=== PATIENT | male | born 1945 | race Caucasian/White ===

== ENCOUNTER 2024-12-24 13:01 | Outpatient (AMB) | payer MEDICARE, OTHER, SELFPAY ==
--- OUTSIDE RECORDS SUMMARY | 2024-01-15 12:30 | XMS_ITS ---
Author Name [facility] Organization [facility] [place] Address [address] [place] [id number] Care Team Providers Care Contract Officer Name Role Phone MARTIN RODGERS Primary Care Provider Unavailabl e Insurance Providers: All historical and current Section Date Range: From patient's date of to the date document was created. This section includes the names of all active insurance providers for the patient. Insurance Provider Type of Coverage Plan Name Start of Policy Coverage End of Policy Coverage Group Number Member ID Insurance Provider's Telephone Number Policy Johnson's Name Patient's Relationship to Policy Johnson MEDICARE (WNR) MEDICARE (M) PART B Oct 22, 2016 PART B [id number] [facility] PATIENT Selected Encounter This section includes the information on record at [place] for the Encounter. Date/Time Encounter Type Encounter Description Reason Provider Source Jan 15, 2024 04:30 PM HEARING AID REPAIR/MODIFYIN G AUDIOLOGY ICD-10-CM Z46.1 Encounter for fitting and adjustment of hearing aid BLADIMIR DANIELS [facility] Encounter Template Text not used by [place] Assessments - Encounter Diagnoses This section includes the primary and secondary diagnoses documented for the Encounter. Date/Time Primary/Secondary Diagnosis Diagnosis Name Provider Source Jan 15, 2024 05:14 PM PRIMARY Encounter for fitting and adjustment of hearing aid [facility] Jan 15, 2024 05:14 PM SECONDARY Sensorineural hearing loss, bilateral [facility] [place] [facility] Plan of Treatment: Future Appointments (+ 6 months) and Future Tests (+/- 45 days) The Plan of Treatment section includes future care activities for the patient from all [place] treatmentfacilities. This section includes future appointments and future orders which are active, pending or scheduled. Future Appointments This section includes appointments that were scheduled to occur 6 months from the date of the Encounter, up to a maximum of 20 appointments. The data comes from all [place] treatment facilities. Appointment Date/Time Appointment Type Appointme nt Facility Name Feb 26, 2024 04:30 PM [facility] [place] [facility] Mar 19, 2024 04:00 PM [facility] Mar 25, 2024 04:00 PM [facility] Apr 10, 2024 02:30 PM [facility] Apr 30, 2024 11:00 AM [facility] May 21, 2024 11:00 AM [facility] May 22, 2024 04:00 PM AMBUL[facility] [place] [facility] Jun 17, 2024 11:00 AM [facility]UL[facility] [place] [facility] Encounter Notes: All associated encounter notes This section contains the clinical notes associated to the Encounter. Date/Time Encounter Note(s) Provider Source Jan 15, 2024 08:00 AM AUDIOLOGY E & M NO TE: LOCAL TITLE: AUDIOLOGY CLINIC STANDARD TITLE: AUDIOLOGY E & M NOTE DATE OF NOTE: JAN 15, 2024@08:00 ENTRY DATE: JAN 15, 2024@08:00:49 AUTHOR: BLADIMIR DANIELS COSIGNER: URGENCY: STATUS: COMPLETED Dx CODE: Z46.1-Encounter for Fitting/Adjusting Hearing Aid(s); H90.3- Sensorineural Hearing Loss, Bilateral APPOINTMENT TYPE: Hearing Aid Check HISTORY/BACKGROUND: was seen for a hearing aid follow-up appointment, unaccompanied. He was fit on 11/24/23 with OTICON INTENT 1 MINIRITE-Rs. He scheduled today's appointment because he does not like the way the hearing aids fit in his ears. At this last visit, the receivers were changed from size 3 85 gain to size 4 85 gain. [place] feels they are too long and sticking out of his ears now, and visual inspection confirms this. Size 4 85 gain receivers were replaced for size 2 85 gain receivers. Remained with 10mm openbass domes. reported improved fit and comfort. He will try these receivers and return if further adjustments are needed. PLAN/RECOMMENDATION(S): 1. Follow up as needed. Patient Education Education provided on the following topics: Hearing aids Education provided to: P Response to Education: VU Brown Patient P Family F Significant Other SO Verbalizes Understanding VU Returns Demonstration RD Performs Independently PI Lacks Comprehension LC Refused Education RE Not Applicable NA /lora/ LORRAINE DE LA GARZA, CCC-A STAFF PLASTIC H[facility] PRODUCTS ASSEMBLER Signed: 01/16/2024 12:51 BLADIMIR DANIELS [place] [facility]
--- OUTSIDE RECORDS SUMMARY | 2024-02-26 12:30 | XMS_ITS | Encounter Summary ---
Author Name [facility] Organization [facility] [place] Address [address] [place] [id number] Care Team Providers Care Lockstitch Cup Setter Name Role Phone MARTIN RODGERS Primary Care [...] PART B Oct 22, 2016 PART B [id number] [facility] PATIENT Selected Encounter This section includes the information on record at [place] for the Encounter. Date/Time Encounter Type Encounter Description Reason Provider Source Feb 26, 2024 04:30 PM HEARING AID EXAM BOTH EARS AUDIOLOGY ICD-10-CM Z46.1 Encounter for fitting and adjustment of hearing aid BLADIMIR DANIELS [facility] Encounter Template Text not used by [place] Assessments - Encounter Diagnoses This section includes the primary and secondary diagnoses documented for the Encounter. Date/Time Primary/Secondary Diagnosis Diagnosis Name Provider Source Feb 26, 2024 05:35 PM PRIMARY Encounter for fitting and adjustment of hearing aid BLADIMIR DANIELS [facility] Feb 26, 2024 05:35 PM SECONDARY Sensorineural hearing loss, bilateral BLADIMIR DANIELS [facility] Plan of Treatment: Future Appointments (+ 6 months) and Future Tests (+/- 45 days) The Plan of Treatment section includes future care activities for the patient from all [place] treatmentfacilities. This section includes future appointments and future orders which are active, pending or scheduled. Future Appointments This section includes appointments that were scheduled to occur 6 months from the date of the Encounter, up to a maximum of 20 appointments. The data comes from all [place] treatment facilities. Appointment Date/Time Appointment Type Appointme nt Facility Name Mar 19, 2024 04:00 PM [facility]BUL[facility] [place] [facility] Mar 25, 2024 04:00 PM AMBULATORY - [facility] [place] [facility] Apr 10, 2024 02:30 PM AMBULAT[facility] [place] [facility] Apr 30, 2024 11:00 AM AMBULATORY - [facility] [place] [facility] May 21, 2024 11:00 AM AMBULATORY [facility] [place] [facility] May 22, 2024 04:00 PM AMBULATORY [facility] [place] [facility] Jun 17, 2024 11:00 AM AMBULATORY - [facility] [place] [facility] Aug 02, 2024 01:30 PM AMBULATORY - [facility] [place] [facility] Encounter Notes: All associated encounter notes This section contains the clinical notes associated to the Encounter. Date/Time Encounter Note(s) Provider Source Feb 26, 2024 08:50 AM AUDIOLOGY E & M NO TE: [facility] TITLE: AUDIOLOGY CLINIC STANDARD TITLE: AUDIOLOGY E & M NOTE DATE OF NOTE: FEB 26, 2024@08:50 ENTRY DATE: FEB 26, 2024@08:50:03 AUTHOR: BLADIMIR DANIELS COSIGNER: URGENCY: STATUS: COMPLETED AUDIOLOGY CLINIC Has ADDENDA Dx CODE: Z46.1-Encounter for Fitting/Adjusting Hearing Aid(s); H90.3- Sensorineural Hearing Loss, Bilateral APPOINTMENT TYPE: Hearing Aid Check HISTORY/BACKGROUND: Model was seen for a hearing aid follow-up appointment, accompanied by his and dog. He was fit on 11/24/23 with OTICON INTENT 1 MINIRITE-Rs. He scheduled today's appointment because he continues to have retention problems with the new hearing aids. He feels that they sit up too high on his ear, making them catch on things and pull out of his ear. He also feels that the receivers don't fit correctly in his ears. Changed from size 2 85 gain to size 3 85 gain receivers today. He initially was in size 3, and has since tried size 4 and size 2. Remained with 10mm openbass domes. Yes[place] reported improved fit and comfort. Yesenia was given several other options going forward. He was advised that we could go back a product line and order Oticon Real devices, as that are more similar to the Oticon More aids that he's been happy with, however he does not want to go backwards. Custom molds were offered, but Yesenia states that he has tried these in the past and was unhappy with them. Yesenia decided that he would like to try a different hearing aid hog driver. The current Oticon Intents are within trial period until 04/29/24 and will be returned for credit at his next visit. Yesenia states that he would like to try Phonak devices. He would like to remain with rechargeable aids. A pair of PHONAK AUDEO I90-R RICs were selected and ordered in [place] with size 1 S receivers and domes. PLAN/RECOMMENDATION(S): 1. RTC on 03/19/24 at 4:00PM in clinic E for a 60 min hearing aid fitting. Patient Education Education provided on the following topics: Hearing aids Education provided to: P Response to Education: VU Brown Patient P Family F Significant Other SO Verbalizes Understanding VU Returns Demonstration RD Performs Independently PI Lacks Comprehension LC Refused Education RE Not Applicable NA /LORRAINE Castillo, [facility])-A STAFF EDGE PLUGGER Signed: 02/26/2024 17:35 Receipt Acknowledged By: 02/27/2024 07:15 /lora/ ABEL PERKINS SUPERVISORY RETAIL OPERATIONS SPECIALIST 03/06/2024 ADDENDUM STATUS: COMPLETED Hearing aids received and certified, upcoming appointment scheduled on 03/19/2024. /lora/ PHILIP ARREDONDO Audiology Health Supervisor Plastering Signed: 03/06/2024 08:13 BLADIMIR DANIELS [facility]
--- OUTSIDE RECORDS SUMMARY | 2024-05-21 07:00 | XMS_ITS ---
Author Name [facility] [place] Organization [facility] [place] Address [address] [place] [address] Care Team Providers Care Financial Services Manager Name Role Phone MARTIN RODGERS Primary Care [...] PART B Oct 22, 2016 PART B [id number] [facility] EFREN SON PATIENT Selected Encounter This section includes the information on record at [place] for the Encounter. Date/Time Encounter Type Encounter Description Reason Provider Source May 21, 2024 11:00 AM HEARING AID XM&SLCTN [place] AUDIOLOGY ICD-10-CM Z46.1 Encounter for fitting and adjustment of hearing aid ELAINE RONDON [facility] Encounter Template Text not used by [place] Assessments - Encounter Diagnoses This section includes the primary and secondary diagnoses documented for the Encounter. Date/Time Primary/Secondary Diagnosis Diagnosis Name Provider Source May 21, 2024 01:02 PM PRIMARY Encounter for fitting and adjustment of hearing aid JASON RONDON [place] [facility] [place] [facility] May 21, 2024 01:02 PM SECONDARY Sensorineural hearing loss, bilateral JASON RONDON [place] [facility] [place] [facility] Plan of Treatment: Future Appointments (+ 6 months) and Future Tests (+/- 45 days) The Plan of Treatment section includes future care activities for the patient from all [place] treatmentfacilities. This section includes future appointments and future orders which are active, pending or scheduled. Future Appointments This section includes appointments that were scheduled to occur 6 months from the date of the Encounter, up to a maximum of 20 appointments. The data comes from all [place] treatment facilities. Appointment Date/Time Appointment Type Appointme nt Facility Name May 22, 2024 04:00 PM AMBULATORY - [facility] [place] [facility] Jun 17, 2024 11:00 AM AMBULATORY - [facility]ICIN [facility] [place] [facility] Aug 02, 2024 01:30 PM AMBULATORY - RE[facility] MEDICIN [facility] [place] [facility] September 13, 2024 02:30 PM AMBULATORY - RE[facility] MEDICIN [facility] [place] [facility] Oct 24, 2024 10:30 AM AMBULATORY - MEDICINE [facility] Encounter Notes: All associated encounter notes This section contains the clinical notes associated to the Encounter. Date/Time Encounter Note(s) Provider Source May 21, 2024 12:57 PM AUDIOLOGY E & M NO TE: [facility] TITLE: AUDIOLOGY CLINIC STANDARD TITLE: AUDIOLOGY E & M NOTE DATE OF NOTE: MAY 21, 2024@12:57 ENTRY DATE: MAY 21, 2024@12:57:08 AUTHOR: ELAINE RONDON COSIGNER: URGENCY: STATUS: COMPLETED Dx: Sensorineural hearing loss, bilateral Yesenia was seen today for a hearing aid follow-up appointment. He was accompanied by his and his dog, Joanne given his verbal consent. reports the Phonak aids are fitting better, but he does not like the Phonak Jolene and states he is not hearing speech well with the aids. He reports his hearing aids often disconnect from the Jolene and he needs to reconnect to it often. also reports his aids sound tinny . agreed to switch back to Oticon RICs as he states he liked that Jolene better and he found the aids to be more natural sounding. The Phonak aids were re-programmed today with an update to acoustic parameters (updated to domlora). Mid-frequency and overall gain were increased and feedback loading manager was re-run. Oticon Intent 1 mini ANDREY-R hearing aids will be ordered again. He will use the Phonak aids for now and will return them at his fitting appointment. [place] is scheduled for a hearing aid fitting appointment on 06/17/24 at 11am. RTC placed. [place] states he had Covid-19 after his last hearing evaluation and feels his hearing has changed. He is scheduled for hearing re-evaluation tomorrow, 05/22/24 at 4pm with this provider. RTC placed. /lora/ Ahmet Soriano, [facility]-A Nurse Research Signed: 05/21/2024 13:03 Receipt Acknowledged By: 05/21/2024 13:16 /lora/ OG PATIÑO ADVANCED LAUNDRY HELPER [facility]LAINE RONDON [facility]
--- OUTSIDE RECORDS SUMMARY | 2024-05-22 12:00 | XMS_ITS ---
Author Name [facility] [place] Organization [place] Address [address] [place] [id number] Care Team Providers Care Escrow Agent Name Role Phone ANA MARIA MARTIN Primary Care Provider Unavailabl e Insurance Providers: [...] PART B Oct 22, 2016 PART B [id number] [facility] HUYEFREN PATIENT Selected Encounter This section includes the information on record at [place] for the Encounter. Date/Time Encounter Type Encounter Description Reason Provider Source May 22, 2024 04:00 PM TYMPANOMETRY AUDIOLOGY ICD-10-CM H90.3 Sensorineural hearing loss, bilateral BONREBECCAEKJASON N L E Encounter Template Text not used by [place] Assessments - Encounter Diagnoses This section includes the primary and secondary diagnoses documented for the Encounter. Date/Time Primary/Secondary Diagnosis Diagnosis Name Provider Source May 22, 2024 04:25 PM PRIMARY Sensorineural hearing loss, bilateral AYSEEKHANDYE N L [place] [facility] [place] [facility] May 22, 2024 04:25 PM SECONDARY Tinnitus, bilateral BONREBECCAEKHANDYE N L [place] [facility] [place] [facility] Plan of Treatment: Future Appointments (+ 6 months) and Future Tests (+/- 45 days) The Plan of Treatment section includes future care activities for the patient from all [place] treatmentfacilities. This section includes future appointments and future orders which are active, pending or scheduled. Future Appointments This section includes appointments that were scheduled to occur 6 months from the date of the Encounter, up to a maximum of 20 appointments. The data comes from all [place] treatment facilities. Appointment Date/Time Appointment Type Appointme nt Facility Name Jun 17, 2024 11:00 AM [facility] [place] [facility] Aug 02, 2024 01:30 PM [facility]BUL[facility] [place] [facility] September 13, 2024 02:30 PM AMBULATORY - REHAB MEDICIN [facility] [place] [facility] Oct 24, 2024 10:30 AM AMBULATORY - MEDICINE [facility] Encounter Notes: All associated encounter notes This section contains the clinical notes associated to the Encounter. Date/Time Encounter Note(s) Provider Source May 22, 2024 04:05 PM AUDIOLOGY E & M NO TE: LOCAL TITLE: AUDIOLOGY CLINIC STANDARD TITLE: AUDIOLOGY E & M NOTE DATE OF NOTE: MAY 22, 2024@16:05 ENTRY DATE: MAY 22, 2024@16:05:46 AUTHOR: ELAINE RONDON COSIGNER: URGENCY: STATUS: COMPLETED AUDIOLOGY CLINIC Has ADDENDA Yesenia was seen May 22, 2024 for a hearing re-evaluation. His last hearing evaluation was on 11/01/23. reports feeling like his hearing has declined since he had Covid-19 in January. He has a history of longstanding, bilateral tinnitus. is currently wearing bilateral Phonak rechargeable RICs but will be switching to rechargeable Oticon RICs next month. Medical history includes: Active problems - Computerized Problem List is the source for the followin. Chronic kidney disease stage 3 2. NonVA Providers 3. Crohns disease 4. History of mitral valve repair 5. Sleep apnea 6. Coronary artery disease 7. Hypertension 8. Hyperlipidemia 9. Neuropathy 10. Restless legs 11. GERD - Gastro-esophageal reflux disease 12. Erectile dysfunction 13. Benign prostatic hypertrophy Results of today's testing are as follow: Otoscopy was WNL bilaterally. Pure tone audiometric testing under headphones revealed a normal sloping to severe, sensorineural hearing loss bilaterally. Word recognition scores were good for each ear (92% right, 84% left) with recorded speech presented at 75 dB HL (contralateral masking). Normal tympanograms obtained bilaterally. Hearing is stable compared to his last evaluation in 2023. [place] was counseled re: today's test results. is scheduled for a hearing aid fitting appointment on 06/17/24 at 11am. /lora/ Ahmet Soriano, [facility]-A Road Inspector Signed: 05/22/2024 17:01 05/23/2024 ADDENDUM STATUS: COMPLETED Hearing aids received and certified, upcoming appointment scheduled on 06/17/2024. /lora/ PHILIP ARREDONDO Audiology Health French Tutor Signed: 05/23/2024 08:18 ELAINE RONDON [place] [facility]
--- OUTSIDE RECORDS SUMMARY | 2024-06-17 07:00 | XMS_ITS | Encounter Summary ---
Author Name [facility] [place] Organization [place] Address [address] [place] [address] Care Team Providers Care Outside Event Sales Specialist Name Role Phone ANA MARIA MARTIN Primary [...] PART B Oct 22, 2016 PART B [id number] [facility] EFREN SON PATIENT Selected Encounter This section includes the information on record at [place] for the Encounter. Date/Time Encounter Type Encounter Description Reason Provider Source Jun 17, 2024 11:00 AM HEARING SERVICE AUDIOLOGY ICD-10-CM Z46.1 Encounter for fitting and adjustment of hearing aid BLADIMIR DANIELS [facility] Encounter Template Text not used by [place] Assessments - Encounter Diagnoses This section includes the primary and secondary diagnoses documented for the Encounter. Date/Time Primary/Secondary Diagnosis Diagnosis Name Provider Source Jun 17, 2024 11:45 AM PRIMARY Encounter for fitting and adjustment of hearing aid BLADIMIR DANIELS [facility] Jun 17, 2024 11:45 AM SECONDARY Sensorineural hearing loss, bilateral BLADIMIR DANIELS [facility] Plan of Treatment: Future Appointments (+ 6 months) and Future Tests (+/- 45 days) The Plan of Treatment section includes future care activities for the patient from all [place] treatmentfacilities. This section includes future appointments and future orders which are active, pending or scheduled. Future Appointments This section includes appointments that were scheduled to occur 6 months from the date of the Encounter, up to a maximum of 20 appointments. The data comes from all [place] treatment facilities. Appointment Date/Time Appointment Type Appointme nt Facility Name Aug 02, 2024 01:30 PM AMBULATORY - REHAB MEDICIN E [facility] September 13, 2024 02:30 PM AMBULATORY - REHAB MEDICIN E [facility] Oct 24, 2024 10:30 AM AMBULATORY - MEDICINE [facility] Encounter Notes: All associated encounter notes This section contains the clinical notes associated to the Encounter. Date/Time Encounter Note(s) Provider Source Jun 17, 2024 11:35 AM AUDIOLOGY E & M NO TE: [facility] TITLE: AUDIOLOGY CLINIC STANDARD TITLE: AUDIOLOGY E & M NOTE DATE OF NOTE: JUN 17, 2024@11:35 ENTRY DATE: JUN 17, 2024@11:35:28 AUTHOR: BLADIMIR DANIELS COSIGNER: URGENCY: STATUS: COMPLETED AUDIOLOGY CLINIC Has ADDENDA Dx CODE: Z46.1- Encounter for Fitting/Programming Hearing Aid(s); H90.3- Sensorineural Hearing Loss, Bilateral APPOINTMENT TYPE: Hearing Aid Fitting SUBJECTIVE (S): The patient was seen today for hearing aid fitting and issuance, unaccompanied. He had previously been evaluated and found to exhibit significant hearing loss for which amplification was recommended. He is a previous user of hearing aids, and was fit on 03/19/24 with PHONAK AUDEO I90- R RICs. He was unsatisfied with these devices and they were returned for credit today. How does the patient best learn? Verbal instruction, demonstration Does the patient have any cultural and mu-ism beliefs, emotional barriers, physical or cognitive limitations, and communication barriers which may impact his ability to learn? No Desire and motivation to learn? Good OBJECTIVE (O): Physical fit of hearing aids was good. Patient verified comfort. Verification of an appropriate acoustic response was obtained using Real Ear measurements (speech mapping) and NAL-NL2 targets. The patient reported good subjective benefit as well. Feedback night warehouse manager was run. Hearing aids were found to be meeting targets adequately and MPO was not exceeding estimated UCL. Settings stored in ESTEPHANIE. ASSESSMENT (A): The following devices were issued: Make: OTICON Model: INTENT 1 MINIRITE-R Right Serial Number: [id number] Left Serial Number: [id number] Battery size: Rechargeable Warranty ends: 06/20/27 Trial Period ends: 11/17/24 Domes/wax guards: Prowax minifit, 8mm openbass domes Ekg Monitor Tech size/power: Size 3 85 gain Program(s): 1-General, 2-Speech in Noise, 3-Lecture, 4-MyMusic Button(s): Short press= Synced VC, R- Raise, L- Lower Long press= Program Extra-long press= Power on/off Fitting Formula: NAL-NL2 Remote Programming: HAs are capable Bluetooth: Paired to iPhone and Oticon Animal Rehabilitator carlee Counseling was completed throughout todays appointment using a standardized curriculum that includes but is not limited to; realistic expectations with amplification in adverse listening environments, acclimatization to own voice and environmental sounds (following real-ear measurements), the importance of consistent use of amplification, proper insertion/removal, care and maintenance (including wax guards/domes if applicable), signal and alerts of devices, and charging/batteries. The was provided the opportunity to practice in office and reports confidence/understanding in all items reviewed. Time Spent= 20 minutes The patient was informed of and signed/agreed to [place] policy on hearing aid issuance: Yes Users are responsible for the maintenance and security of their devices. Determination of need to replace a hearing aid is made by the [place] plan coordinator. Hearing aids will not be replaced in cases of neglect, abuse, or excessive loss. Items issued are for personal use only. Prognosis for successful hearing aid use is good. PLAN (P): 1. Follow-up for programming/adjustments as needed. 2. The International Outcome Inventory-Hearing Aids (IOI-PRICE) will be mailed to the in four weeks. He was asked to complete and mail back to clinic after completion. Patient Education Education provided on the following topics: Hearing aid use, care, maintenance Education provided to: P Response to Education: VU, RD, PI Brown Patient P Family F Significant Other SO Verbalizes Understanding VU Returns Demonstration RD Performs Independently PI Lacks Comprehension LC Refused Education RE Not Applicable NA /lora/ LORRAINE DE LA GARZA, [facility]-A STAFF CLERK SUPERVISOR Signed: 06/17/2024 11:45 07/30/2024 ADDENDUM STATUS: COMPLETED returned IOI-PRICE Outcome Measure to the clinic via mail with an overall score of 32 Based on this score: i. No follow-up call is indicated _XX_ ii. Follow-up call is indicated and fitting clinician will be notified __ /lora/ PHILIP ARREDONDO Audiology [facility] Welcome Hostess Signed: 07/30/2024 09:45 BLADIMIR DANIELS [facility]
--- OUTSIDE RECORDS SUMMARY | 2024-08-02 09:30 | XMS_ITS ---
Author Name [facility] Organization [facility] Address [address] [place] [id number] Care Team Providers Care Burn Center Nurse Name Role Phone MARTIN RODGERS Primary Care [...] PART B Oct 22, 2016 PART B [id number] [facility] EFREN SON PATIENT Selected Encounter This section includes the information on record at [place] for the Encounter. Date/Time Encounter Type Encounter Description Reason Provider Source Aug 02, 2024 01:30 PM HEARING AID FITTING/CHECKIN G AUDIOLOGY ICD-10-CM Z46.1 Encounter for fitting and adjustment of hearing aid MARTIN LEMA [place] Encounter Template Text not used by [place] Assessments - Encounter Diagnoses This section includes the primary and secondary diagnoses documented for the Encounter. Date/Time Primary/Secondary Diagnosis Diagnosis Name Provider Source Aug 02, 2024 01:51 PM PRIMARY Encounter for fitting and adjustment of hearing aid [facility] [place] [facility] Aug 02, 2024 01:51 PM SECONDARY Sensorineural hearing loss, bilateral SHAUNNA LEMA [place] [facility] [place] [facility] Plan of Treatment: Future Appointments (+ 6 months) and Future Tests (+/- 45 days) The Plan of Treatment section includes future care activities for the patient from all [place] [facility]. This section includes future appointments and future orders which are active, pending or scheduled. Future Appointments This section includes appointments that were scheduled to occur 6 months from the date of the Encounter, up to a maximum of 20 appointments. The data comes from all [place] treatment facilities. Appointment Date/Time Appointment Type Appointme nt Facility Name September 13, 2024 02:30 PM AMBULATORY - [place] MEDIC[place] [facility] [place] [facility] Oct 24, 2024 10:30 AM AMBULATORY - MEDICINE [facility] Encounter Notes: All associated encounter notes This section contains the clinical notes associated to the Encounter. Date/Time Encounter Note(s) Provider Source Aug 02, 2024 08:59 AM AUDIOLOGY E & M NOTE: LOCAL TITLE: AUDIOLOGY CLINIC STANDARD TITLE: AUDIOLOGY E & M NOTE DATE OF NOTE: AUG 02, 2024@08:59 ENTRY DATE: AUG 02, 2024@08:59:28 AUTHOR: MARTIN LEMA COSIGNER: URGENCY: STATUS: COMPLETED Dx CODE: Z46.1-Encounter for Fitting/Adjusting Hearing Aid(s); H90.3- Sensorineural Hearing Loss, Bilateral APPOINTMENT TYPE: Hearing Aid Programming HISTORY/BACKGROUND: The patient was seen for a hearing aid follow-up appointment, accompanied by his . He was fit with Oticon Intent 1 miniRITE-Rs on 06/17/24. He reports his right hearing aid is intermittent and he thinks the receivers are too short. HEARING AID CHECK: Visual inspection revealed red trimble on both ears from receivers. Switched from size 3 to size 4 receivers bilaterally. Fit looked excellent. Hearing aids were connected to [employer] to check settings. A [facility] repair box was ordered and will be mailed to . He was advised to send the right hearing aid out for repair should intermittency continue post adjustments. PLAN/RECOMMENDATION(S): 1. Follow up as needed. * Patient Education Education provided on the following topics: Hearing aids Education provided to: P, SO Response to Education: VU Brown Patient P Family F Significant Other SO Verbalizes Understanding VU Returns Demonstration RD Performs Independently PI Lacks Comprehension LC Refused Education RE Not Applicable NA * /lora/ MARTIN LEMA STAFF RED MUD THICKENER OPERATOR Signed: 08/02/2024 13:51 [facility]
--- OUTSIDE RECORDS SUMMARY | 2024-09-13 10:30 | XMS_ITS | Encounter Summary ---
Author Name [facility] [place] Organization [facility] [place] Address [address] [place] [id number] Care Team Providers Care Wildlife Conservationist Name Role Phone MARTIN RODGERS Primary Care [...] PART B Oct 22, 2016 PART B [id number] [facility] PATIENT Selected Encounter This section includes the information on record at [place] for the Encounter. Date/Time Encounter Type Encounter Description Reason Provider Source September 13, 2024 02:30 PM HEARING AID FITTING/CHECKIN G AUDIOLOGY ICD-10-CM Z46.1 Encounter for fitting and adjustment of hearing aid ELAINE RONDON [facility] Encounter Template Text not used by [place] Assessments - Encounter Diagnoses This section includes the primary and secondary diagnoses documented for the Encounter. Date/Time Primary/Secondary Diagnosis Diagnosis Name Provider Source September 13, 2024 03:44 PM PRIMARY Encounter for fitting and adjustment of hearing aid JASON RONDON [place] [facility] [place] [facility] September 13, 2024 03:44 PM SECONDARY Sensorineural hearing loss, bilateral JASON RONDON [place] [facility] [place] [facility] Plan of Treatment: Future Appointments (+ 6 months) and Future Tests (+/- 45 days) The Plan of Treatment section includes future care activities for the patient from all [place] [facility]. This section includes future appointments and future orders which are active, pending or scheduled. Future Appointments This section includes appointments that were scheduled to occur 6 months from the date of the Encounter, up to a maximum of 20 appointments. The data comes from all [place] treatment facilities. Appointment Date/Time Appointment Type Appointme nt Facility Name Oct 24, 2024 10:30 AM AMBULATORY - MEDICINE [facility] Encounter Notes: All associated encounter notes This section contains the clinical notes associated to the Encounter. Date/Time Encounter Note(s) Provider Source September 13, 2024 03:39 PM AUDIOLOGY E & M NO TE: LOCAL TITLE: AUDIOLOGY CLINIC STANDARD TITLE: AUDIOLOGY E & M NOTE DATE OF NOTE: SEPTEMBER 13, 2024@15:39 ENTRY DATE: SEPTEMBER 13, 2024@15:40:01 AUTHOR: ELAINE RONDON COSIGNER: URGENCY: STATUS: COMPLETED Dx: Sensorineural hearing loss, bilateral Yesenia was seen today for a hearing aid follow-up appointment. He was accompanied by his and his dog, Shawna given his verbal consent. Yesenia reports his receivers are too short and none of his additional programs were saved after his hearing aids returned from repair. He and his expressed dissatisfaction with how long it took for him to get his hearing aids back from repair (reportedly one month). The receivers were changed from length 3 to length 4. Both aids were connected in ESTEPHANIE and user settings were restored. Yesenia verified all programs are now accessible through the [employer] Jolene. Streaming volume for his phone was increased one step. He will contact the clinic as needed. /lora/ Ahmet Soriano, [facility]-A File Conversion Operator Signed: 09/13/2024 15:44 [facility] [place] [facility]
--- OUTSIDE RECORDS SUMMARY | 2024-10-24 06:30 | XMS_ITS | Continuity of Care Document ---
Author Name [facility] Organization [facility] Care Team Providers Care Orthopedic Brace Maker Name Role Phone [facility] Unavailable Unavailable Problems Combined list of problems from Department of Defense and Veterans Affairs facilities. It does not include entries that were removed or entered in error. Problem Status Onset Date Problem Type Date of Resolution Comments Source Benign prostatic hypertrophy Active Condition [facility] Chronic kidney disease stage 3 Active Condition [facility] Coronary artery disease Active Condition [facility] Crohns disease Active Condition [facility] Erectile dysfunction Active Condition [facility] GERD - Gastro-esophagea l reflux disease Active Condition [facility] History of mitral valve repair Active Condition [facility] Hyperlipidemia Active Condition [facility] Hypertension Active Condition [facility] Neuropathy Active Condition [facility] NonVA Providers Active Condition Oct 10, 2023 Entered By: ANNE-MARIE MONTES DE OCA Comment: Primary Care- Bj White MD P: F: Jun 2023 Entered By: ANNE-MARIE MONTES DE OCA Comment: [place] - Simone Ruano MD P: F: Jun 2023 Entered By: JANICE BREAUX Comment: Neurologist - Dr Watts 2023 Entered By: ANNE-MARIE MONTES DE OCA Comment: Vice President Of Sales - Janice Mcgowan MD P: F: Jun 2023 Entered By: JANICE BREAUX Comment: Stoner Out- Dr Werner 2023 Entered By: ANNE-MARIE MONTES DE OCA Comment: Urologist- Sharan Joseph MD P: F: Jun 2023 Entered By: JANICE BREAUX Comment: Final Inspector Balance Wheel- Dr Be 2023 Entered By: ANNE-MARIE MONTES DE OCA Comment: Garnett Machine Operator- Zen Elizabeth MD P: F: Jun 2023 Entered By: JANICE BREAUX Comment: Opthalmologist- Dr LarkinJun 2023 Entered By: JANICE BREAUX Comment: Physician General Practice- Dr NassarJun 2023 Entered By: ANNE-MARIE MONTES DE OCA Comment: Sleep Medicine- Sleep Medicine [facility] P: F: [phone] 2023 Entered By: ANNE-MARIE MONTES DE OCA Comment: Orthopedic Surgeon- Jay Carrasquillo MD P: F: [facility] Restless legs Active Condition [facility] Sleep apnea Active Condition Oct 06, 2023 Entered By: JANICE BREAUX Comment: does not use CPAP [facility] Diagnosis: ICD-10-CM I25.10 Athscl heart disease [place] coronary artery w/o ang pctrs Active Diagnosis [facility] Diagnosis: ICD-10-CM Z46.1 Encounter for fitting and adjustment of hearing aid Active Diagnosis [facility] Diagnosis: ICD-10-CM H90.3 Sensorineural hearing loss, bilateral Active Diagnosis [facility] Diagnosis: ICD-10-CM I10 Essential (primary) hypertension Active Diagnosis [facility] Medications Combined list of outpatient medications from Department of Defense and Veterans Affairs facilities.Medications provided include 1) outpatient medications from the last 15 months, and 2) patient-reported medications. Medication Details Route Status Patient Instructions Prescription Expires Prescription Number Last Dispense Date Ordering Provider Order Date Order Qty Source ACETAMINOPH EN 325MG TAB TAKE TWO TABLETS BY MOUTH PRN ORAL ACTIVE [facility] 2023 IELD ADALIMUMAB 40MG/0.4ML INJ,PEN,KIT INJECT 40MG SUBCUTAN EOUSLY EVERY WEEK SUBCUT ANEOUS ACTIVE SONIDO [facility] 2023 IELD AZITHROMYCI N 500MG TAB TAKE ONE TABLET BY MOUTH PRN ORAL ACTIVE SONIDO BREAUX [facility] 2023 IELD BISOPROLOL TAB TAKE 2.5 MG BY MOUTH TWICE DAILY ORAL ACTIVE SONIDO BREAUX [facility] 2023 IELD BUDESONIDE 0.5MG/2ML SUSP,INH,2M L 1 VIAL VIA NEBULIZE R TWICE DAILY [facility] CHOLECALCIF LORAINE 25MCG (1,000UNIT) TAB TAKE ONE TABLET BY MOUTH ONCE DAILY ORAL SONIDO SEVERINO SA2023 IELD CHOLESTYRAM INE 4GM/9GM PWDR,PKT TAKE 1 PACKET BY MOUTH ONCE DAILY ORAL ACTIVE SONIDO BREAUX 2023 IELD CODEINE 15MG/ACETAM INOPHEN 300MG TAB TAKE ONE TABLET BY MOUTH PRN ORAL SONIDO SEVERINO 2023 IELD CYANOCOBALA MIN 1000MCG/ML INJ INJECT 1ML (1000 MCG) INTRAMUS CULARLY Q MONTH INTRAM USCULA R SONIDO SEVERINO SA 2023 IELD DICLOFENAC NA 1% GEL,TOP APPLY 4 GRAMS TOPICALL Y TWICE DAILY [facility]ELD ESZOPICLONE 2MG TAB TAKE ONE TABLET BY MOUTH ONCE DAILY ORAL SONIDO SEVERINO 2023 IELD FINASTERIDE 5MG TAB TAKE ONE TABLET BY MOUTH ONCE DAILY ORAL SONIDO SEVERINO 2023 IELD GABAPENTIN 100MG CAP TAKE 2 CAPSULES BY MOUTH TWICE DAILY ORAL SONIDO SEVERINO SA 2023 IELD LIDOCAINE 5% OINT,TOP APPLY TOPICALL Y PRN TOPICA L [facility]ELD LOPERAMIDE HCL 2MG CAP TAKE 1 CAPSULE BY MOUTH PRN [facility]ELD OMEPRAZOLE 20MG CAP,EC TAKE 1 CAPSULE BY MOUTH EVERY MORNING 30 MINUTES BEFORE BREAKFAS T ORAL SONIDO SEVERINO 2023 IELD POTASSIUM CITRATE 15MEQ TAB,SA TAKE ONE TABLET BY MOUTH ONCE DAILY ORAL SONIDO SEVERINO SA 2023 IELD PRAMIPEXOLE DIHYDROCHLO RIDE 0.125MG TAB TAKE ONE TABLET BY MOUTH ONCE DAILY ORAL ACTIVE SONIDO BREAUX SA BREANNE 2023 IELD TADALAFIL 5MG TAB TAKE ONE TABLET BY MOUTH ONCE DAILY ORAL ACTIVE SONIDO BREAUX SA [facility] 2023 IELD Allergies, Adverse Reactions, Alerts Combined list of allergies from Department of Defense and Veterans Affairs facilities. It does not include entries that were removed or entered in error. Substance Category Reaction Severity Reaction type Status Date Reported Comments Source ATENOLOL Propensity to adverse reactions to drug (finding) Dizziness, Nausea active 4 [facility] BENZONATATE Propensity to adverse reactions to drug (finding) Finding of vomiting active 4 [facility] CEFTIN Propensity to adverse reactions to drug (finding) Urticaria active 4 [facility] KEFLEX Propensity to adverse reactions to drug (finding) active 4 [facility] METOPROLOL Propensity to adverse reactions to drug (finding) Insomnia active 4 [facility] ROZEREM Propensity to adverse reactions to drug (finding) [facility] Immunizations Combined list of available immunizations from the Department of Defense and Veterans Affairs facilities. Immunization Series Date Given Administered By Site Reaction Lot Number CVX Code Drug Shared Services Representative Status Comments Source INFLUENZA, UNSPECIFIED FORMULATION 2023 88 complet ed HISTORICA L INFORMATI ON - [facility] Vital Signs Combined list of inpatient and outpatient Vital Signs from Department of Defense and Veterans Affairs, ranging from 12 months to all on record, depending upon the facility. Vital Sign Value Date Comments Source SYSTOLIC BLOOD PRESSURE 118 10/24/2024 10:34:00 [facility] DIASTOLIC BLOOD PRESSURE 70 10/24/2024 10:34:00 [facility] PULSE OXIMETRY 97 % 10/24/2024 10:34:00 Christina BRUMFIELD WEIGHT 186.4 10/24/2024 10:34:00 CLAY LYON BMI 27 kg/m2 10/24/2024 10:34:00 CLAY LYON PAIN 0 10/24/2024 10:34:00 SPRIN SONALI PULSE 77 10/24/2024 10:34:00 SPRFELIPE LYON RESPIRATION 20 10/24/2024 10:34:00 AJIT GASPAR Encounters Combined list of: 1) Encounters from Department of Veterans Affairs facilities going backup to the last 18 months, not all VA inpatient encounters are included; 2) Encounters from the Department of Defense facilities going backup to 280 months. Location Location Details Encounter Type Encounter Number Reason For Visit Attending Provider ADM Date DC Date Status Disposition Source [facility] Outpatient Encounter [id number] 06/27 [facility] Out[facility] Encounter [id number] 10/01 [facility] Out[facility] Encounter [id number] 10/01 [facility] [place] O/P NEW MOD 45 MIN [id number] Diagnos is: ICD-10- CM I10 Essenti al (primar y) hyperte nsKAREN Mcdowell 10/15 [place] [facility] HEARING AID EXAM BOTH EARS [id number] Diagnos is: ICD-10- CM H90.3 Sensori neural hearing loss, bilater al Diana LEZAMA 10/31 [facility] [id number] Diagnos is: ICD-10- CM Z46.1 Encount er for fitting and adjustm ent of hearing aid CHANO LEMA 11/23 [facility] HEARING AID REPAIR/MOD IFYING [id number] Diagnos is: ICD-10- CM Z46.1 Encount er for fitting and adjustm ent of hearing aid EUSEBIA GUTIERREZ L 12/12 [facility] HEARING AID REPAIR/MOD IFYING [id number] Diagnos is: ICD-10- CM Z46.1 Encount er for fitting and adjustm ent of hearing aid VARUN DANIELS L 01/14 [facility] HEARING AID EXAM BOTH EARS [id number] Diagnos is: ICD-10- CM Z46.1 Encount er for fitting and adjustm ent of hearing aid VARUN DANIELS L 02/25 [facility] CONFORMITY EVALUATION [id number] 1. Diagnos is: ICD-10- CM Z46.1 Encount er for fitting and adjustm ent of hearing aid GAURANG RONDONN L 03/19 [facility] EAR IMPRESSION [id number] 1. Diagnos is: ICD-10- CM Z46.1 Encount er for fitting and adjustm ent of hearing aid GAURANG RONDON UREN L 03/25 [facility] HEARING AID FITTING/CH ECKING [id number] 1. Diagnos is: ICD-10- CM Z46.1 Encount er for fitting and adjustm ent of hearing aid GAURANG RONDON UREN L 04/10 [facility] Out[facility] Encounter [id number] 04/24 [facility] HEARING AID FITTING/CH ECKING [id number] Diagnos is: ICD-10- CM Z46.1 Encount er for fitting and adjustm ent of hearing aid GAURANG RONDON L 04/30 [facility] HEARING AID XM&SLCTN BINAURL [id number] Diagnos is: ICD-10- CM Z46.1 Encount er for fitting and adjustm ent of hearing aid GAURANG RONDON L 05/21 [facility] [place] [id number] Diagnos is: ICD-10- CM H90.3 Sensori neural hearing loss, bilater GAURANG Dickey L 05/22 [facility] Out[facility] Encounter [id number] 06/11 [facility] [id number] Diagnos is: ICD-10- CM Z46.1 Encount er for fitting and adjustm ent of hearing aid VARUN DANIELS L 06/17 [facility] HEARING AID FITTING/CH ECKING [id number] Diagnos is: ICD-10- CM Z46.1 Encount er for fitting and adjustm ent of hearing aid CHANO LEMA 08/02 [facility] Out[facility] Encounter [id number] 09/10 [facility] HEARING AID FITTING/CH ECKING [id number] Diagnos is: ICD-10- CM Z46.1 Encount er for fitting and adjustm ent of hearing aid GAURANG RONDON 09/13 [facility] Outpatient Encounter [id number] 10/16 [facility] [place] O/P EST MOD 30 MIN [id number] Diagnos is: ICD-10- CM I25.10 Athscl heart disease of [place] coronar y artery w/o ang pctrs SUELLEN HUNG 10/24 [facility] Social History Combined list of available smoking, tobacco, and other social history from Department of Defense and Veterans Affairs facilities. Social History Type Response Date Comment Sourc e Tobacco smoking status [facility] NEVER USED CIGARETTES 10/24/2024 [facility] History of tobacco use [place]-TOBACCO NEVER USED OTHER TYPE 10/24/2024 [facility] History of tobacco use [place]-TOBACCO NEVER USED 10/16/2023 [facility]
--- OUTSIDE RECORDS SUMMARY | 2024-10-24 06:30 | XMS_ITS | Encounter Summary ---
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 Date/Time Encounter Type Encounter Description Reason Provider Source Oct 24, 2024 10:30 AM OFFICE O/P EST MOD 30 MIN PRIMARY CARE/MEDICINE ICD-10-CM I25.10 [facility] heart disease of [place] coronary artery w/o MARY Del Angel [place] Encounter Template Text not used by [place] Assessments - Encounter Diagnoses This section includes the primary and secondary diagnoses documented for the Encounter. Date/Time Primary/Secondary Diagnosis Diagnosis Name Provider Source Oct 24, 2024 11:00 AM PRIMARY [facility] heart disease of [place] coronary artery w/o MARY Del Angel [facility] Oct 24, 2024 11:00 AM SECONDARY Benign prostatic hyperplasia without lower urinry tract symp MARY HUNG [facility] Oct 24, 2024 11:00 AM SECONDARY Chronic kidney disease, stage 3 unspecified MARY HUNG [facility] Oct 24, 2024 11:00 AM SECONDARY Crohn's disease, unspecified, without complications MARY HUNG [facility] [facility] Oct 24, 2024 11:00 AM SECONDARY Essential (primary) hypertension MARY HUNG [facility] [facility] Oct 24, 2024 11:00 AM SECONDARY Gastro-esophageal reflux disease without esophagitis MARY HUNG [facility] Oct 24, 2024 11:00 AM SECONDARY Hyperlipidemia, unspecified MARY HUNG [facility] Oct 24, 2024 11:00 AM SECONDARY Male erectile dysfunction, unspecified MARY HUNG [facility] Oct 24, 2024 11:00 AM SECONDARY Polyneuropathy, unspecified MARY HUNG [facility] Oct 24, 2024 11:00 AM SECONDARY Restless legs syndrome MARY HUNG [facility] Vital Signs: All taken on the encounter date This section contains inpatient and outpatient Vital Signs collected on the date of the Encounter. Date/Time Temperature Pulse Blood Pressure Respiratory Rate SP02 Pain Height Weight Body Mass Index Source Oct 24, 2024 10:34 AM 70 in [facility] Oct 24, 2024 10:34 AM 77 /min 118/70 mm[Hg] 20 /min 97 % 0 186.4 lb 27 [facility] Social History: Smoking Status (Most current) and Tobacco Use (All prior to encounter date) This section includes the most current, and the historical, smoking and tobacco- related health factors from the [place] facility where the Encounter took place. Current Smoking Status This section includes the most current smoking, or tobacco-related health factor, from the [place] facility where the Encounter took place. Date/Time Current Smoking Status Comment Facil ity Oct 24, 2024 10:30 AM [place]-TOBACCO NEVER USED CIGARETTES [facility] Tobacco Use History This section includes a history of the smoking, or tobacco-related health factors, that were collected on or before the date of the Encounter. The data comes from the [place] facility where the Encounter took place. Date/Time Smoking Status/Tobacco Use Comment F acility Oct 24, 2024 10:30 AM VA-TOBACCO NEVER USED OTHER TYPE [facility] Oct 16, 2023 01:00 PM VA-TOBACCO NEVER USED [facility] Encounter Notes: All associated encounter notes This section contains the clinical notes associated to the Encounter. Date/Time Encounter Note(s) Provider Source Oct 24, 2024 10:38 AM ADDENDUM: LOCAL TITLE: Addendum STANDARD TITLE: ADDENDUM DATE OF NOTE: OCT 24, 2024@10:38:20 ENTRY DATE: OCT 24, 2024@10:38:21 AUTHOR: CUBA VALDEZ EXP COSIGNER: URGENCY: STATUS: COMPLETED Please request last Eye exam from: [facility]. [phone]. Thanks! /lora/ CUBA VALDEZ LPN LPN Signed: 10/24/2024 10:39 Receipt Acknowledged By: 10/24/2024 13:07 /es/ LING HUIZAR ADVANCE FORKLIFT TRUCK OPERATOR ======== --- Original Document --- 10/24/24 CLINICAL REMINDERS/NURSING: Advance Directive Screen MH AD: Patient does not have a completed advance directive on file at any facility, [facility] or outside. S/he is not interested in completing one at this time. The patient received education about Advance Directives and written notification of his/her rights. Suicide Screen: C-SSRS Screening [place] Suicide Severity Rating Scale (C-SSRS) screener 1. Over the past month, have you wished you were or wished you could go to sleep and not wake up? No 2. Over the past month, have you had any actual thoughts of killing yourself? No 3. Over the past month, have you been thinking about how you might do this? Response not required due to responses to other questions. 4. Over the past month, have you had these thoughts and had some intention of acting on them? Response not required due to responses to other questions. 5. Over the past month, have you started to work out or worked out the details of how to kill yourself? Response not required due to responses to other questions. 6. If yes, at any time in the past month did you intend to carry out this plan? Response not required due to responses to other questions. 7. In your lifetime, have you ever done anything, started to do anything, or prepared to do anything to end your life (for example, collected pills, obtained a gun, gave away valuables, went to the roof but didn't jump)? No 8. If YES, was this within the past 3 months? Response not required due to responses to other questions. Homelessness/Food Insecurity Screen: In the past 2 months, have you been living in stable housing that you own, rent, or stay in as part of a household? Yes - Living in stable housing. Are you worried or concerned that in the next 2 months you may NOT have stable housing that you own, rent, or stay in as part of a household? No - Not worried about housing near future The reports the following: Within the past 12 months, you worried whether your food would run out before you got money to buy more. Never true Within the past 12 months, the food you bought just didn't last and you didn't have money to get more. Never true Depression Screening: Perform PHQ-2 A PHQ-2 screen was performed. The score was 0 which is a negative screen for depression. Over the past two weeks, how often have you been bothered by the following problems? 1. Little interest or pleasure in doing things Not at all 2. Feeling down, depressed, or hopeless Not at all Falls & Incontinence Screen: Falls Screen: During the past 12 months, did the patient report any falls? 4. No falls within the past year. Incontinence Screen: During the past 12 months, has the patient has any characteristics of incontinence (ability, voiding, leakage, etc.)? No incontinence. Hepatitis C Testing: Patient declines HCV lab test. Pneumococcal Conjugate Vaccine (PCV15/PCV20/PCV21): Refuses PCV vaccine Immunization: PNEUMOCOCCAL CONJUGATE, UNSPECIFIED FORMULATION Refusal Reason: PATIENT DECISION Patient refuses all immunization(s) in the PneumoPCV group Date Documented: 10/24/24 10:35 Tobacco Use Screening: The patient has never smoked cigarettes. The patient has never used other types of tobacco. Influenza Immunization: The patient has received the seasonal influenza vaccine for the current season at another location. Documented: INFLUENZA, UNSPECIFIED FORMULATION Historical Date Administered: 2023 Exact date unknown Outside Location: Outside Healthcare Provider Information Source: FROM OTHER REGISTRY Alcohol Use Screen (AUDIT-C): Alcohol Screen: SCREEN FOR ALCOHOL (AUDIT-C) An alcohol screening test (AUDIT-C) was negative (score=0). 1. How often did you have a drink containing alcohol in the past year? Consider a drink to be a 12 ounce can or bottle of regular beer, 8 ounces of malt liquor, a 5 ounce glass of table wine, or a 1.5 ounce shot of liquor (like scotch, gin, or vodka). Never 2. How many drinks containing alcohol did you have on a typical day when you were drinking in the past year? Response not required due to responses to other questions. 3. How often did you have six or more drinks on one occasion in the past year? Response not required due to responses to other questions. COVID-19 Immunization: Refused Moderna Monovalent COVID-19 vaccine Immunization: COVID-19 (MODERNA), MRNA, LNP-S, PF, 50 MCG/0.5 ML (AGES 12+ YEARS) Refusal Reason: PATIENT DECISION Patient refuses all immunization(s) in the COVID-19 group Date Documented: 10/24/24 10:36 Tdap Immunization: The patient declines to receive the recommended dose of Tdap vaccine. Immunization: TDAP Refusal Reason: PATIENT DECISION Patient refuses all immunization(s) in the TDAP group Date Documented: 10/24/24 10:36 Herpes Zoster (Shingles) Vaccine: The patient declines to receive the recommended dose of zoster (shingles) vaccine. Immunization: ZOSTER RECOMBINANT Refusal Reason: PATIENT DECISION Patient refuses all immunization(s) in the ZOSTER group Date Documented: 10/24/24 10:37 RSV Immunization: Respiratory Syncytial Virus (RSV) Vaccine: Refused [employer] (RSV vaccine, adjuvanted, Arexvy). Immunization: RSV, RECOMBINANT, PROTEIN SUBUNIT RSVPREF3, ADJUVANT RECONSTITUTED, 0.5 ML, PF Refusal Reason: PATIENT DECISION Patient refuses all immunization(s) in the RSV group Date Documented: 10/24/24 10:37 RHS Screen: RHS Screen Session Format: Face to Face Environmental Check Upon inquiry, the individual reports that the environment is safe to proceed. Informed Consent to Screen and Document The individual consents to proceed with screening. The individual consents to documentation of responses. PRIMARY SCREEN: In the past 12 months, how often did a current or former intimate partner (e.g., boyfriend, girlfriend, , , sexual partner): 1. Scream or curse at you Never 2. Insult or talk down to you Never 3. Threaten you with harm Never 4. Physically hurt you Never 5. Force or pressure you to have sexual contact against your will, or when you were unable to say no Never The HITS tool (items 1-4 above) is [place] copyright protected by Seven Ruiz MD, and the user has full rights to use it throughout the [place] system. PRIMARY SCREEN RESULT: The Primary Screen is NEGATIVE. The individual answered never to all forms of IPV above (i.e., answered never to all 5 items) The individual accepts education and/or resources: No EDUCATION: The individual indicated readiness to learn. Education offered during this session as noted above. The individual indicated understanding by asking relevant questions and making appropriate comments. No barriers to learning were observed or identified. Eye Care At-Risk Screen : Patient identified to be at risk for the following eye condition(s): MACULAR DEGENERATION: Macular Degeneration Risk Factors Information: Reminder Term: VA-AMD RISK FACTORS Problem Diagnosis: 10/06/2023 I25.10 (ICD-10-CM) Atherosclerotic Heart Disease of [place] Coronary Artery without Angina Pectoris Date Entered: 10/06/2023; Date Last Modified: 10/06/2023 Status: ACTIVE; Priority: UNDEFINED Prov. Narr. - Coronary artery disease Action: No Referral Ordered: Eye exam completed elsewhere by an Rubbing Bed Operator or Slabber Exam Information: Date: 2024 ? Exact date is unknown Findings/Comment Unknown Records requested /lora/ CUBA VALDEZ LPN LPN Signed: 10/24/2024 10:38 10/24/2024 ADDENDUM STATUS: COMPLETED THIS MUSHROOM PACKER SENT FAX REQUEST FOR RECORDS TO [facility] [phone] /es/ LING HUIZAR ADVANCE FORKLIFT TRUCK OPERATOR Signed: 10/24/2024 13:06 CUBA VALDEZ [facility] Oct 24, 2024 10:34 AM PREVENTIVE MEDICIN E NURSING NOTE: LOCAL TITLE: CLINICAL REMINDERS/NURSING STANDARD TITLE: PREVENTIVE MEDICINE NURSING NOTE DATE OF NOTE: OCT 24, 2024@10:34 ENTRY DATE: OCT 24, 2024@10:35 AUTHOR: CUBA VALDEZ EXP COSIGNER: URGENCY: STATUS: COMPLETED CLINICAL REMINDERS/NURSING Has ADDENDA Advance Directive Screen MH AD: Patient does not have a completed advance directive on file at any facility, [facility] or outside. S/he is not interested in completing one at this time. The patient received education about Advance Directives and written notification of his/her rights. Suicide Screen: C-SSRS Screening [place] Suicide Severity Rating Scale (C-SSRS) screener 1. Over the past month, have you wished you were or wished you could go to sleep and not wake up? No 2. Over the past month, have you had any actual thoughts of killing yourself? No 3. Over the past month, have you been thinking about how you might do this? Response not required due to responses to other questions. 4. Over the past month, have you had these thoughts and had some intention of acting on them? Response not required due to responses to other questions. 5. Over the past month, have you started to work out or worked out the details of how to kill yourself? Response not required due to responses to other questions. 6. If yes, at any time in the past month did you intend to carry out this plan? Response not required due to responses to other questions. 7. In your lifetime, have you ever done anything, started to do anything, or prepared to do anything to end your life (for example, collected pills, obtained a gun, gave away valuables, went to the roof but didn't jump)? No 8. If YES, was this within the past 3 months? Response not required due to responses to other questions. Homelessness/Food Insecurity Screen: In the past 2 months, have you been living in stable housing that you own, rent, or stay in as part of a household? Yes - Living in stable housing. Are you worried or concerned that in the next 2 months you may NOT have stable housing that you own, rent, or stay in as part of a household? No - Not worried about housing near future The reports the following: Within the past 12 months, you worried whether your food would run out before you got money to buy more. Never true Within the past 12 months, the food you bought just didn't last and you didn't have money to get more. Never true Depression Screening: Perform PHQ-2 A PHQ-2 screen was performed. The score was 0 which is a negative screen for depression. Over the past two weeks, how often have you been bothered by the following problems? 1. Little interest or pleasure in doing things Not at all 2. Feeling down, depressed, or hopeless Not at all Falls & Incontinence Screen: Falls Screen: During the past 12 months, did the patient report any falls? 4. No falls within the past year. Incontinence Screen: During the past 12 months, has the patient has any characteristics of incontinence (ability, voiding, leakage, etc.)? No incontinence. Hepatitis C Testing: Patient declines HCV lab test. Pneumococcal Conjugate Vaccine (PCV15/PCV20/PCV21): Refuses PCV vaccine Immunization: PNEUMOCOCCAL CONJUGATE, UNSPECIFIED FORMULATION Refusal Reason: PATIENT DECISION Patient refuses all immunization(s) in the PneumoPCV group Date Documented: 10/24/24 10:35 Tobacco Use Screening: The patient has never smoked cigarettes. The patient has never used other types of tobacco. Influenza Immunization: The patient has received the seasonal influenza vaccine for the current season at another location. Documented: INFLUENZA, UNSPECIFIED FORMULATION Historical Date Administered: 2023 Exact date unknown Outside Location: Outside Healthcare Provider Information Source: FROM OTHER REGISTRY Alcohol Use Screen (AUDIT-C): Alcohol Screen: SCREEN FOR ALCOHOL (AUDIT-C) An alcohol screening test (AUDIT-C) was negative (score=0). 1. How often did you have a drink containing alcohol in the past year? Consider a drink to be a 12 ounce can or bottle of regular beer, 8 ounces of malt liquor, a 5 ounce glass of table wine, or a 1.5 ounce shot of liquor (like scotch, gin, or vodka). Never 2. How many drinks containing alcohol did you have on a typical day when you were drinking in the past year? Response not required due to responses to other questions. 3. How often did you have six or more drinks on one occasion in the past year? Response not required due to responses to other questions. COVID-19 Immunization: Refused Moderna Monovalent COVID-19 vaccine Immunization: COVID-19 (MODERNA), MRNA, LNP-S, PF, 50 MCG/0.5 ML (AGES 12+ YEARS) Refusal Reason: PATIENT DECISION Patient refuses all immunization(s) in the COVID-19 group Date Documented: 10/24/24 10:36 Tdap Immunization: The patient declines to receive the recommended dose of Tdap vaccine. Immunization: TDAP Refusal Reason: PATIENT DECISION Patient refuses all immunization(s) in the TDAP group Date Documented: 10/24/24 10:36 Herpes Zoster (Shingles) Vaccine: The patient declines to receive the recommended dose of zoster (shingles) vaccine. Immunization: ZOSTER RECOMBINANT Refusal Reason: PATIENT DECISION Patient refuses all immunization(s) in the ZOSTER group Date Documented: 10/24/24 10:37 RSV Immunization: Respiratory Syncytial Virus (RSV) Vaccine: Refused [employer] (RSV vaccine, adjuvanted, Arexvy). Immunization: RSV, RECOMBINANT, PROTEIN SUBUNIT RSVPREF3, ADJUVANT RECONSTITUTED, 0.5 ML, PF Refusal Reason: PATIENT DECISION Patient refuses all immunization(s) in the RSV group Date Documented: 10/24/24 10:37 RHS Screen: RHS Screen Session Format: Face to Face Environmental Check Upon inquiry, the individual reports that the environment is safe to proceed. Informed Consent to Screen and Document The individual consents to proceed with screening. The individual consents to documentation of responses. PRIMARY SCREEN: In the past 12 months, how often did a current or former intimate partner (e.g., boyfriend, girlfriend, , , sexual partner): 1. Scream or curse at you Never 2. Insult or talk down to you Never 3. Threaten you with harm Never 4. Physically hurt you Never 5. Force or pressure you to have sexual contact against your will, or when you were unable to say no Never The HITS tool (items 1-4 above) is [place] copyright protected by Seven Ruiz MD, and the user has full rights to use it throughout the [facility] system. PRIMARY SCREEN RESULT: The Primary Screen is NEGATIVE. The individual answered never to all forms of IPV above (i.e., answered never to all 5 items) The individual accepts education and/or resources: No EDUCATION: The individual indicated readiness to learn. Education offered during this session as noted above. The individual indicated understanding by asking relevant questions and making appropriate comments. No barriers to learning were observed or identified. Eye Care At-Risk Screen : Patient identified to be at risk for the following eye condition(s): MACULAR DEGENERATION: Macular Degeneration Risk Factors Information: Reminder Term: VA-AMD RISK FACTORS Problem Diagnosis: 10/06/2023 I25.10 (ICD-10-CM) Atherosclerotic Heart Disease of [place] Coronary Artery without Angina Pectoris Date Entered: 10/06/2023; Date Last Modified: 10/06/2023 Status: ACTIVE; Priority: UNDEFINED Prov. Narr. - Coronary artery disease Action: No Referral Ordered: Eye exam completed elsewhere by an Rubbing Bed Operator or Slabber Exam Information: Date: 2024 ? Exact date is unknown Findings/Comment Unknown Records requested /lora/ CUBA VALDEZ LPN LPN Signed: 10/24/2024 10:38 10/24/2024 ADDENDUM STATUS: COMPLETED Please request last Eye exam from: [facility]. [phone]. Thanks! /bassam VALDEZ LPN LPN Signed: 10/24/2024 10:39 Receipt Acknowledged By: 10/24/2024 13:07 /lora/ LING HUIZAR ADVANCE FORKLIFT TRUCK OPERATOR 10/24/2024 ADDENDUM STATUS: COMPLETED THIS MUSHROOM PACKER SENT FAX REQUEST FOR RECORDS TO [facility] [phone] /lora/ LING HUIZAR ADVANCE FORKLIFT TRUCK OPERATOR Signed: 10/24/2024 13:06 CUBA VALDEZ [facility] Oct 24, 2024 09:01 AM PRIMARY CARE NURSE PRACTITIONER OUTPATIENT NOTE: LOCAL TITLE: NURSE PRACTITIONER OUTPATIENT NOTE STANDARD TITLE: PRIMARY CARE NURSE PRACTITIONER OUTPATIENT NOTE DATE OF NOTE: OCT 24, 2024@09:01 ENTRY DATE: OCT 24, 2024@09:01:19 AUTHOR: MARY HUNG COSIGNER: URGENCY: STATUS: COMPLETED PRIMARY CARE VISIT EFREN SON, is a 79 yo WHITE MALE who [facility] the [place] [facility]. TYPE OF VISIT: Face to face 79-year-old male with MARIA GUADALUPE intolerant of CPAP, CKD stage III, Crohn's, HTN, GERD, BPH, HLD, neuropathy, and RLS presented to the outpatient clinic in annual follow-up to maintain benefits. This is his first visit with me. He had a recent viral URI that has resolved. No ED/UC visits. No falls. No labs or diagnostics available as the Chitina did not remember to bring any PCP documentation. All medications were reconciled during this visit. HEALTHCARE PROVIDERS: Non-VA PCP: Dr. Coleman Cardiology: Dr. Jeronimo Neuro: Dr. Ruelas Nephrology: Dr. Arnel Alcantara Urology: Dr. Joseph ENT: Dr. Brewer Rheumatology: Dr. Marina Ophthalmology: [facility] Sleep: Sleep medicine [facility] Dermatology: Dr. Nassar Audiology: [place] Social Hx: The Chitina lives with his . He has never smoked and does not drink alcohol. No cannabis or illicits. 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 No regular exercise but does stay busy with yard work when weather permits. During the winter, he and his participate in adult exercise classes at the [facility]. HISTORY: PERIOD OF SERVICE - [employer] FROM Sep TO August COMBAT SERVICE INDICATED: No MEDICAL HISTORY Active Problem Chronic kidney disease stage 3 N18. 10/16/2023 JANICE BREAUX NonVA Providers R69. 10/16/2023 JANICE BREAUX Crohns disease K50.90 10/06/2023 JANICE BREAUX History of mitral valve repair R69. 10/06/2023 JANICE BREAUX Sleep apnea G47.30 10/06/2023 JANICE BREAUX Coronary artery disease I25.10 10/06/2023 JANICE BREAUX Hypertension I10. 10/06/2023 JANICE BREAUX Hyperlipidemia E78.5 10/06/2023 JANICE BREAUX Neuropathy G62.9 10/06/2023 JANICE BREAUX Restless legs G25.81 10/06/2023 JANICE BREAUX GERD - Gastro-esophageal reflux dis 10/06/2023 JANICE BREAUX Erectile dysfunction N52.9 10/06/2023 JANICE BREAUX Benign prostatic hypertrophy N40.0 10/06/2023 JANICE BREAUXE VITAL SIGNS: Temperature 97.9 F [36.6 C] (10/16/2023 13:00) Blood Pressure 143/77 (10/16/2023 13:00) Pulse 59 (10/16/2023 13:00) Respiration 16 (10/16/2023 13:00) Pain 0 (10/16/2023 13:00) BMI BMI: 25.7 Weight 179 lb [81.19 kg] (10/16/2023 13:00) Pulse Oximetry 96% (10/16/2023 13:00) ASSISTIVE DEVICES: None REVIEW OF SYSTEMS: CONSTITUTIONAL: No fevers, chills, weight loss/gain ENT: No sore throat, sneezing, congestion, rhinorrhea, anosmia, or ageusia. CARDIOVASCULAR: No chest pain, palpitations, or increased pedal edema RESPIRATORY: No SOB, cough, sputum, wheeze. GASTROINTESTINAL: Denies abd pain, N/V/D. No melena or hematochezia. No tenesmus or constipation. GENITOURINARY: No burning micturition. No urinary frequency or urgency. No nocturia. MUSCULOSKELETAL: No myalgias or arthralgias. PSYCHIATRIC: No new anxiety or depression. No sleep disturbance. NEUROLOGIC: No headaches, dizziness, numbness or tingling in the extremities, or unilateral weakness. EXAMINATION General: Well-appearing older in no obvious distress. Mental Status: Alert and oriented x4. Head: Normocephalic. Eyes: PERRLA. EOMI. Anicteric sclerae. ENT: Moist oral mucosa. Neck: Supple. No JVD. No LAD. No bruit. Lungs: CTA. Normal chest excursion. Eupneic respirations. CV: Heart tones S1, S2. RRR. No M/G/R. No peripheral edema GI: Abdomen is soft and nontender. No palpable mass. : No CVA tenderness. Ext: No cyanosis or clubbing. No gross deformities. Neuro: CN II through XII grossly intact. Normal speech. Normal gait. Integument: Skin warm and dry. No concerning lesions or rashes. Psych: Normal mood and affect. Normal judgment. LABS: ======== HEMOGLOBIN A1C TREND No data available ======== CBC TREND No data available ======== CHEM 7 TREND LAB CUMULATIVE SELECTED 2 No selection items chosen for this component. ======== LIPID PANEL TREND No data available ======== ======== THYROID PANEL No data available for: TSH THYROID TOTAL T3 THYROID TOTAL T4 THYROID T4 FREE(FT4) (WROX) ======== PSA No data available for: PSA ======== SrCr (last 6 weeks): CREATININE-EGFR - NONE FOUND CRCL IBW: Creat not found CRCL ACT: No Labs CRCL ADJ: <Not Found> DATA REVIEW >> MEDICATIONS Reviewed (VA & Non VA) --- Active Outpatient Medications (including Supplies): Start Date Active Non-VA Medications Status Stop Date ======== 1) Non-VA ACETAMINOPHEN 325MG TAB SiMG BY ACTIVE MOUTH NEEDED 2) Non-VA ADALIMUMAB 40MG/0.4ML INJ PEN KIT ACTIVE SiMG SUBCUTANEOUSLY EVERY WEEK 3) Non-VA AZITHROMYCIN 500MG TAB SiMG BY ACTIVE MOUTH NEEDED 4) Non-VA BISOPROLOL TAB Si.5 MG BY MOUTH ACTIVE TWICE DAILY 5) Non-VA BUDESONIDE 0.5MG/2ML INH SUSP 2ML ACTIVE Si VIAL VIA NEBULIZER TWICE DAILY 6) Non-VA CHOLECALCIF 25MCG (D3-1,000UNIT) TAB ACTIVE SiMCG BY MOUTH ONCE DAILY 7) Non-VA CHOLESTYRAMINE 4GM/9GM ORAL PWD PKT ACTIVE Si PACKET BY MOUTH ONCE DAILY 8) Non-VA CODEINE 15/ACETAMINOPHEN 300MG TAB ACTIVE Si TABLET BY MOUTH NEEDED 9) Non-VA CYANOCOBALAMIN 1000MCG/ML INJ Sig: ACTIVE 1ML (1000 MCG) INTRAMUSCULARLY Q MONTH 10) Non-VA DICLOFENAC NA 1% TOP GEL Si GRAMS ACTIVE TOPICALLY TWICE DAILY 11) Non-VA ESZOPICLONE 2MG TAB SiMG BY MOUTH ACTIVE ONCE DAILY 12) Non-VA FINASTERIDE 5MG TAB SiMG BY MOUTH ACTIVE ONCE DAILY 13) Non-VA GABAPENTIN 100MG CAP SiMG BY ACTIVE MOUTH TWICE DAILY 14) Non-VA LIDOCAINE 5% OINT,TOP Sig: TOPICALLY ACTIVE 15) Non-VA LOPERAMIDE HCL 2MG CAP SiMG BY ACTIVE MOUTH NEEDED 16) Non-VA OMEPRAZOLE 20MG EC CAP SiMG BY ACTIVE MOUTH EVERY MORNING 30 MINUTES BEFORE BREAKFAST 17) Non-VA POTASSIUM CITRATE 15MEQ SA TAB Sig: ACTIVE 15MEQ BY MOUTH ONCE DAILY 18) Non-VA PRAMIPEXOLE DIHYDROCHLORIDE 0.125MG ACTIVE TAB Si.125MG BY MOUTH ONCE DAILY 19) Non-VA TADALAFIL 5MG TAB SiMG BY MOUTH ACTIVE ONCE DAILY ALLERGIES: ========= CEFTIN, METOPROLOL, ATENOLOL, BENZONATATE, KEFLEX, ROZEREM >> HEALTH MAINTENANCE PREVENTIVE MEDICINE GOALS Advance Directive Screen MH AD Oct 15 Suicide Screen Oct 15 Homelessness/Food Insecurity Screen Oct 15 Depression Screening Oct 15 Falls & Incontinence Screen DUE NOW Hepatitis C Testing DUE NOW HIV Screening DUE NOW Pneumococcal Conjugate Vaccine (PCV15/PCDUE NOW Tobacco Use Screening Oct 15 Influenza Immunization DUE NOW Medication Reconciliation DUE NOW Alcohol Use Screen (AUDIT-C) Oct 15 COVID-19 Immunization DUE NOW Tdap Immunization DUE NOW HTN Assess for Elevated BP>=140/90 DUE NOW Herpes Zoster (Shingles) Vaccine DUE NOW RSV Immunization DUE NOW Sexual Orientation Oct 15 RHS Screen Oct 15 Eye Care At-Risk Screen DUE NOW (Optional) Whole Health Documentation DUE NOW ASSESSMENT/PLAN: Active problems - Computerized Problem List is the source for the following: Chronic kidney disease stage 3: Unclear if stable as no labs available. Knows to avoid NSAIDs including naproxen and ibuprofen. Crohns disease: Maintained on Humira. Every 3 year colonoscopies. Last [place] December 2023; no polyps. History of mitral valve repair: 2021. Not maintained on bisoprolol by cardiology. He notes that he was intolerant of metoprolol and verapamil. Sleep apnea: No sleep study data in our system. He is intolerant of CPAP. Coronary artery disease: Followed by Dr. Simone Ruano and maintained on bisoprolol. Not on a statin but is maintained on cholestyramine. Not on aspirin. Hypertension: Blood pressure well within target range today at 118/70. Continue bisoprolol prescribed by cardiology. Discussed heart healthy diet including avoidance of added salt at the table and increased exercise as billings components of overall CV health. He voiced understanding. Hyperlipidemia: Unclear if stable as this is followed by his community PCP. Maintained on cholestyramine. Discussed heart healthy diet including reduction of animal fats and increased exercise as billings components of overall CV health. He voiced understanding. Neuropathy: Maintained by neurology on gabapentin 200 twice daily and 300 mg at bedtime. Restless legs: Maintained on pramipexole by neurology. Reports effectiveness. GERD - Gastro-esophageal reflux disease: Asymptomatic on omeprazole. Erectile dysfunction: Maintained on tadalafil by urology. Reports good effects. Benign prostatic hypertrophy: On dual therapy with tamsulosin and finasteride. No nocturia or other LUTS. Following with urology. FOLLOW UP: RTC Below & sooner PRN UPCOMING APPOINTMENTS: 10/24/2024 10:30 SPR PACT 1 COMMUNICATIONS EQUIPMENT SUPERVISOR On the date of the encounter, I spent 30 minutes on some or all of the following: chart review, history, physical examination, treatment planning, education and counselling of the patient/family/caregiver, placing orders, communicating with other health care providers, and documentation in the electronic health record. No barriers; Patient understands and agrees to current treatment plan. If pt has any questions, concerns, or changes in current health status he/she will call or come [facility] to the [facility]. Alcohol Use Screen (AUDIT-C): Alcohol Screen: SCREEN FOR ALCOHOL (AUDIT-C) An alcohol screening test (AUDIT-C) was negative (score=0). 1. How often did you have a drink containing alcohol in the past year? Consider a drink to be a 12 ounce can or bottle of regular beer, 8 ounces of malt liquor, a 5 ounce glass of table wine, or a 1.5 ounce shot of liquor (like scotch, gin, or vodka). Never 2. How many drinks containing alcohol did you have on a typical day when you were drinking in the past year? Response not required due to responses to other questions. 3. How often did you have six or more drinks on one occasion in the past year? Response not required due to responses to other questions. Medication Reconciliation: Outpatient: Has the patient been taking medications as documented in the EMLR? YES: The patient has been taking medications as documented in the EMLR. Essential Medication List for Review used to complete this medication reconciliation. INCLUDED IN THIS LIST: Alphabetical list of active outpatient prescriptions dispensed from this [facility] (local) and dispensed from another [place] or [facility] facility (remote) as well as inpatient orders (local, pending and active), local clinic medications, locally documented non-VA medications, and local prescriptions that have or been discontinued in the past 90 days. - All changes in medications, including all non-VA/Herbal/OTC medications were entered into CPRS. - If there were any medications the patient should no longer take, they were discontinued. - The patient/caregiver was instructed to update this list, discard old lists, and take this list to the next appointment, whether with a VA or non-VA provider. HTN Assess for Elevated BP>=140/90: The patient declines the recommended changes in medications to improve blood pressure control. Comment: Blood pressure is not elevated. Depression Screening: Perform PHQ-2 A PHQ-2 screen was performed. The score was 0 which is a negative screen for depression. Over the past two weeks, how often have you been bothered by the following problems? 1. Little interest or pleasure in doing things Not at all 2. Feeling down, depressed, or hopeless Not at all Eye Care At-Risk Screen : Patient identified to be at risk for the following eye condition(s): MACULAR DEGENERATION: Macular Degeneration Risk Factors Information: Reminder Term: VA-AMD RISK FACTORS Problem Diagnosis: 10/06/2023 I25.10 (ICD-10-CM) Atherosclerotic Heart Disease of [place] Coronary Artery without Angina Pectoris Date Entered: 10/06/2023; Date Last Modified: 10/06/2023 Status: ACTIVE; Priority: UNDEFINED Prov. Narr. - Coronary artery disease Action: No Referral Ordered: The patient declined/refused referral for Tele-Eye screening and Eye Clinic appointment. Comment: Followed by his community PCP. As in my note above, follows with [facility]. /es/ MARY HUNG NP NURSE PRACTITIONER Signed: 10/24/2024 10:59 MARY HUNG [place] Oct 15, 2024 02:46 PM ADMINISTRATIVE NOT E: LOCAL TITLE: ADMINISTRATIVE NOTE STANDARD TITLE: ADMINISTRATIVE NOTE DATE OF NOTE: OCT 15, 2024@14:46 ENTRY DATE: OCT 15, 2024@14:46:10 AUTHOR: TAMMY SCHMITZ EXP COSIGNER: URGENCY: STATUS: COMPLETED ADMINISTRATIVE NOTE Has ADDENDA MSA: Please request last visit notes and lab results from providers below, thank you. Community PCP: Nory Venegas NP, [facility] Urologist- Sharan Joseph MD P: F: Materials Buyer - Janice Mcgowan MD P: F: Neurologist - Dr Ruelas Target Man - Simone Ruano MD P: F: /es/ TAMMY SCHMITZ REGISTERED NURSE Signed: 10/15/2024 14:54 Receipt Acknowledged By: 10/16/2024 15:04 /lora/ LING HUIZAR [employer]VANCE FORKLIFT TRUCK OPERATOR 10/16/2024 ADDENDUM STATUS: COMPLETED THIS MUSHROOM PACKER SENT FAX REQ FOR REC PER RN REQ FROM [facility] PCP: Nory Venegas NP, [facility] Materials Buyer - Janice Mcgowan MD P: F: Neurologist - Dr Ruelas Target Man - Simone Ruano MD P: F: ALL ABOVE PROVIDERS ARE [facility] - [phone] Urologist- Sharan Joseph MD P: F: [facility] [phone] /es/ LING HUIZAR ADVANCE FORKLIFT TRUCK OPERATOR Signed: 10/16/2024 15:03 TAMMY SCHMITZ
--- OUTSIDE RECORDS SUMMARY | 2024-12-20 23:59 | XMS_ITS | Continuity of Care Document ---
Author Organization [facility] Address [address] [place] [id number]- Support Name Relationship Address Phone SON, NAYELI Personal Relationship Unknown Unavai lable SON, NAYELI Personal Relationship Unknown Unavai lable SON, SAIRA child Unknown Unavailable SON, NAYELI Personal Relationship Unknown Unavai lable SON, NAYELI Personal Relationship Unknown Unavai lable SON, NAYELI Personal Relationship Unknown Unavai lable SON, NAYELI Personal Relationship Unknown Unavai lable SON, NAYELI Personal Relationship Unknown Unavai lable SON, NAYELI Personal Relationship Unknown Unavai lable SON, NAYELI Personal Relationship Unknown Unavai lable SON, NAYELI Personal Relationship Unknown Unavai lable SON, NAYELI Personal Relationship Unknown Unavai lable SON, NAYELI Personal Relationship Unknown Unavai lable SON, NAYELI Personal Relationship Unknown Unavai lable SON, NAYELI Personal Relationship Unknown Unavai lable SON, NAYELI Personal Relationship Unknown Unavai lable SON, NAYELI Personal Relationship Unknown Unavai lable SON, NAYELI Personal Relationship Unknown Unavai lable SON, NAYELI Personal Relationship Unknown Unavai lable SON, NAYELI Personal Relationship Unknown Unavai lable SON, NAYELI Personal Relationship Unknown Unavai lable SON, NAYELI Personal Relationship Unknown Unavai lable SON, NAYELI Personal Relationship Unknown Unavai lable SON, NAYELI Personal Relationship Unknown Unavai lable SON, NAYELI Personal Relationship Unknown Unavai lable SON, NAYELI Personal Relationship Unknown Unavai lable SON, NAYELI Personal Relationship Unknown Unavai lable SON, NAYELI Personal Relationship Unknown Unavai lable SON, NAYELI Personal Relationship Unknown Unavai lable SON, NAYELI Personal Relationship Unknown Unavai lable SON, NAYELI Personal Relationship Unknown Unavai lable SON, NAYELI Personal Relationship Unknown Unavai lable SON, NAYELI Personal Relationship Unknown Unavai lable SON, NAYELI Personal Relationship Unknown Unavai lable SON, NAYELI Personal Relationship Unknown Unavai lable SON, NAYELI Personal Relationship Unknown Unavai lable SON, NAYELI spouse Unknown Unavailable SON, NAYELI Personal Relationship Unknown Unavai lable SON, NAYELI Personal Relationship Unknown Unavai lable SON, NAYELI Personal Relationship Unknown Unavai lable SON, NAYELI Personal Relationship Unknown Unavai lable SON, NAYELI Personal Relationship Unknown Unavai lable SON, NAYELI Personal Relationship Unknown Unavai lable SON, NAYELI Personal Relationship Unknown Unavai lable SON, NAYELI Personal Relationship Unknown Unavai lable SON, NAYELI Personal Relationship Unknown Unavai lable SON, NAYELI Personal Relationship Unknown Unavai lable SON, NAYELI Personal Relationship Unknown Unavai lable SON, NAYELI Personal Relationship Unknown Unavai lable SON, NAYELI Personal Relationship Unknown Unavai lable SON, EFREN E Personal Relationship Unknown Unavai lable SON, NAYELI Personal Relationship Unknown Unavai lable SON, NAYELI Personal Relationship Unknown Unavai lable SON, NAYELI Personal Relationship Unknown Unavai lable SON, NAYELI Personal Relationship Unknown Unavai lable SON, NAYELI Personal Relationship Unknown Unavai lable SON, NAYELI Personal Relationship Unknown Unavai lable SON, NAYELI Personal Relationship Unknown Unavai lable SON, NAYELI Personal Relationship Unknown Unavai lable SON, NAYELI Personal Relationship Unknown Unavai lable SON, NAYELI Personal Relationship Unknown Unavai lable SON, NAYELI Personal Relationship Unknown Unavai lable SON, NAYELI Personal Relationship Unknown Unavai lable SON, NAYELI Personal Relationship Unknown Unavai lable SON, NAYELI Personal Relationship Unknown Unavai lable SON, NAYELI Personal Relationship Unknown Unavai lable SON, NAYELI Personal Relationship Unknown Unavai lable SON, NAYELI Personal Relationship Unknown Unavai lable Care Team Providers Care Supervisor Power Reactor Name Role Phone Bj White MD Primary Care Physician Encounter [facility] [id number] Date(s): 11/20/24 - 12/20/24 [facility] [address] [place], [place] [address] Attending Physician: Joe Jacques Admitting Physician: Joe Jacques Referring Physician: Joe Jacques Encounter Type: Triage Allergies, Adverse Reactions, Alerts Substance Criticality Severity Reaction Reaction Severity Status metoprolol Insomnia Active Ceftin hives Active Medications acetaminophen-HYDROcodone 325 mg-5 mg oral tablet TAKE 1 TABLET BY MOUTH FOUR TIMES A DAY (EVERY 6 HOURS) NEEDED FOR SEVERE PAIN MAX 4 TABS/DAY Start Date: 11/22/24 Status: Ordered Medication Dispense Status: Completed Total Allowed Fills: 1 Fills Dispensed: 0 bisoprolol 5 mg oral tablet 0.5 tablet, By Mouth, 2 times a day, # 90 tablet, 3 Refills, Maintenance, 09/30/24 7:19:00 AM EDT, [facility]/pharmacy #[id number], 178, cm, 09/10/24 15:29:00 EDT, Height, 80, kg, 01/21/24 23:04:00 EDT, Dry Weight Start Date: 09/30/24 Status: Ordered Medication Dispense Status: Completed Quantity: 90.0 Unit: tablet Total Allowed Fills: 4 Fills Dispensed: 0 cholestyramine 4 gm/9 gm oral powder for reconstitution TAKE 1 PACKET DISSOLVED IN WATER ONCE A DAY Start Date: 08/06/21 Status: Ordered Medication Dispense Status: Completed Total Allowed Fills: 1 Fills Dispensed: 0 Cipro 500 mg oral tablet 1 tablet = 500 mg, By Mouth, Every 12 hours, for 14 days, # 28 tablet, 0 Refills, Acute 12/25/24 9:27:00 AM EDT, 12/11/24 9:27:00 AM EDT, Tablet, [facility], Partial fill upon patient request if the prescription is for a schedule II opioid drug., 178, cm, 12/11/24 7:51:00 EDT, Height, 81.6, kg, 12/05/24 22:11:00 EDT, Dry Weight Start Date: 12/11/24 Stop Date: 12/25/24 Status: Ordered Medication Dispense Status: Completed Quantity: 28.0 Unit: tablet Total Allowed Fills: 1 Fills Dispensed: 0 Dilaudid 2 mg oral tablet 1 tablet = 2 mg, By Mouth, Every 6 hours, PRN Pain , Moderate, # 10 tablet, 0 Refills, Maintenance,12/11/24 9:19:00 AM EDT, Tablet, [facility], Partial fill upon patient request if the prescription is for a schedule II opioid drug., 178, cm, 12/11/24 7:51:00 EDT, Height, 81.6, kg, 12/05/24 22:11:00 EDT, Dry Weight Start Date: 12/11/24 Status: Ordered Medication Dispense Status: Completed Quantity: 10.0 Unit: tablet Total Allowed Fills: 1 Fills Dispensed: 0 enoxaparin 40 mg/0.4 mL injectable solution 0.4 mL = 40 mg, Subcutaneous Injection, Every 24 hours, for 30 days, # 12 mL, 0 Refills, Acute 01/10/25 9:23:00 AM EDT, 12/11/24 9:23:00 AM EDT, Injection, [facility], Partial fill upon patient request if the prescription is for a schedule II opioid drug., 178, cm, 12/11/24 7:51:00 EDT,Height, 81.6, kg, 12/05/24 22:11:00 EDT, Dry Weight Start Date: 12/11/24 Stop Date: 01/10/25 Status: Ordered Medication Dispense Status: Completed Quantity: 12.0 Unit: mL Total Allowed Fills: 1 Fills Dispensed: 0 eszopiclone 2 mg oral tablet TAKE 1 TABLET EVERY NIGHT AT BEDTIME FOR 1 MONTH (30 DAYS) NEEDED Start Date: 01/06/22 Status: Ordered Medication Dispense Status: Completed Total Allowed Fills: 1 Fills Dispensed: 0 finasteride 5 mg oral tablet = 5 mg, By Mouth, Daily, 0 Refills, Maintenance, 03/12/17 11:06:55 AM EST, Tablet Start Date: 03/12/17 Status: Ordered Medication Dispense Status: Completed Total Allowed Fills: 1 Fills Dispensed: 0 gabapentin 300 mg oral capsule See Instructions, 1 capsule By Mouth once every night at 8 pm, # 90 capsule, Refills 2, Tot. Refills 2, Maintenance, 09/10/24 4:07:00 PM EDT, Instructions Replace Required Details, Route to Pharmacy Electronically, [facility]/pharmacy #[id number], Partial fill upon patient request if the prescription is for a schedule II opioid drug., 178, cm, 09/10/24 15:29:00 EDT, Height, 80, kg, 01/21/24 23:04:00 EDT, Dry Weight Start Date: 09/10/24 Status: Ordered Medication Dispense Status: Completed Quantity: 90.0 Unit: capsule Total Allowed Fills: 3 Fills Dispensed: 0 lidocaine 5% topical film See Instructions, Topically Daily, # 10 patch, 0 Refills, Maintenance, 12/11/24 9:24:00 AM EDT, Patch, [facility], Partial fill upon patient request if the prescription is for a scheduleII opioid drug., Topically Daily, 178, cm, 12/11/24 7:51:00 EDT, Height, 81.6, kg, 12/05/24 22:11:00 EDT, Dry Weight Start Date: 12/11/24 Status: Ordered Medication Dispense Status: Completed Quantity: 10.0 Unit: patch Total Allowed Fills: 1 Fills Dispensed: 0 metroNIDAZOLE 500 mg oral tablet 1 tablet = 500 mg, By Mouth, Every 8 hours, for 14 days, # 42 tablet, 0 Refills, Acute 12/25/24 9:28:00 AM EDT, 12/11/24 9:28:00 AM EDT, Tablet, [facility], Partial fill upon patient request if the prescription is for a schedule II opioid drug., 178, cm, 12/11/24 7:51:00 EDT, Height, 81.6, kg, 12/05/24 22:11:00 EDT, Dry Weight Start Date: 12/11/24 Stop Date: 12/25/24 Status: Ordered Medication Dispense Status: Completed Quantity: 42.0 Unit: tablet Total Allowed Fills: 1 Fills Dispensed: 0 omeprazole 20 mg oral enteric coated capsule 1 capsule = 20 mg, By Mouth, Daily, # 30 capsule, 0 Refills, Maintenance, 01/06/22 9:21:00 AM EDT, [facility], Partial fill upon patient request if the prescription is for a schedule II opioid drug. Start Date: 01/06/22 Status: Ordered Medication Dispense Status: Completed Quantity: 30.0 Unit: capsule Total Allowed Fills: 1 Fills Dispensed: 0 potassium citrate 15 mEq oral tablet, extended release 1 tablet = 15 mEq, By Mouth, Daily Start Date: 08/06/21 Status: Ordered Medication Dispense Status: Completed Total Allowed Fills: 1 Fills Dispensed: 0 pramipexole 0.25 mg oral tablet See Instructions, TAKE 2 TABLET BY MOUTH 2 TIMES A DAY,MAY TAKE ADDITIONAL TABLET AT NIGHT NEEDED, # 90 tablet, 11 Refills, Maintenance, 10/29/24 5:39:00 PM EDT, 178, cm, 10/29/24 10:23:00 EDT, Height, 80, kg, 01/21/24 23:04:00 EDT, Dry Weight Start Date: 10/29/24 Status: Ordered Medication Dispense Status: Completed Quantity: 90.0 Unit: tablet Total Allowed Fills: 12 Fills Dispensed: 0 Skyrizi 0 Refills, Maintenance, 07/10/24 10:36:00 AM EDT, Partial fill upon patient request if the prescription is for a schedule II opioid drug. Start Date: 07/10/24 Status: Ordered Medication Dispense Status: Completed Total Allowed Fills: 1 Fills Dispensed: 0 tadalafil 5 mg oral tablet 1 tablet = 5 mg, By Mouth, Daily, at the same time every day, # 30 tablet, 0 Refills, Maintenance, 11/22/24 6:55:00 AM EDT, Tablet, Partial fill upon patient request if the prescription is for a schedule II opioid drug. Start Date: 11/22/24 Status: Ordered Medication Dispense Status: Completed Quantity: 30.0 Unit: tablet Total Allowed Fills: 1 Fills Dispensed: 0 Xhance 93 mcg/inh nasal spray 1 sprays, Nares, Both, 2 times a day, # 16 mL, 0 Refills, Maintenance, 11/02/22 8:56:00 AM EDT, [facility], Partial fill upon patient request if the prescription is for a schedule II opioid drug. Start Date: 11/02/22 Status: Ordered Medication Dispense Status: Completed Quantity: 16.0 Unit: mL Total Allowed Fills: 1 Fills Dispensed: 0 Problem List Condition Confirmation Course Effective Dates Status H ealth Status Informant Per cardiology bursts of SVT and NSVT Confirmed Active Arthritis of spine Confirmed Active Perioperative atrial fibrillation at time of MVR Confirmed Active BPPV (benign paroxysmal positional vertigo) Confirmed Active CKD (chronic kidney disease) Confirmed Active Minimal CAD on cardiac catheterization Confirmed Active Crohn's disease Confirmed 1982 Active Diverticulitis Confirmed Active Dyslipidemia Confirmed Active Abnormal echocardiogram (severe RV dil, mild AI, TI, MV repair, resolution of the LV outflow obstruction) Confirmed Active History of ascites-trace on CT Confirmed Active History of bladder stone Confirmed Active Hearing loss Confirmed Active S/P MVR (mitral valve repair) Confirmed Active History of small bowel obstruction Confirmed Active Nephrolithiasis Confirmed Active Prostate hypertrophy Confirmed Active Left ventricular outflow tract obstruction, 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 Confirmed Active Hepatic cysts Confirmed Active 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 Confirmed Active MARIA GUADALUPE (obstructive sleep apnea) Confirmed Active Peripheral neuropathy Confirmed Active PONV (postoperative nausea and vomiting) Confirmed Active RLS (restless legs syndrome) Confirmed Active Hepatic steatosis Confirmed Active Syncope perioperatively for MVR Confirmed Active Social History Social History Type Response Smoking Status Never (less than 100 in lifetime) entered on: 01/10/23 Sex Sex Representation Male (finding) Implantable Device List Procedure Provider Procedure Date Device Type Site Ileocecectomy Laparoscopic Stephanie Matthew MD 12/05/24 Un known Colon Device Identifier Serial Number Lot or Batch Number Manufacturing Date Expiration Date Distinct Identification Code MRI Safety Implantable Status Assigning Authority Unknown Unknown [id number] Y Unknown 05/24/29 Unknown Unknown Active Unknown Procedure Provider Procedure Date Device Type Site Ileocecectomy Laparoscopic Stephanie Matthew MD 12/05/24 Un known Colon Device Identifier Serial Number Lot or Batch Number Manufacturing Date Expiration Date Distinct Identification Code MRI Safety Implantable Status Assigning Authority Unknown Unknown [id number] Unknown 07/22/29 Unknown Unknown Active Loren agosto Procedure Provider Procedure Date Device Type Site Ileocecectomy Laparoscopic Stephanie Matthew MD 12/05/24 Un known Colon Device Identifier Serial Number Lot or Batch Number Manufacturing Date Expiration Date Distinct Identification Code MRI Safety Implantable Status Assigning Authority Unknown Unknown [id number] Y Unknown 09/22/27 Unknown Unknown Active Unknown Procedure Provider Procedure Date Device Type Site Ileocecectomy Laparoscopic Stephanie Matthew MD 12/05/24 Un known Colon Device Identifier Serial Number Lot or Batch Number Manufacturing Date Expiration Date Distinct Identification Code MRI Safety Implantable Status Assigning Authority Unknown Unknown [id number] Unknown 08/21/29 Unknown Unknown Active Loren agosto Patient Care team information Care Team Personnel Name: Emma Edwards RN Position: [facility] RN Member Role: Primary Care Nurse Name: Krissy Varma RN Position: S RN Member Role: Primary Care Nurse Name: Bj White MD Position: Reference Physician Member Role: PCP Address: [address] [place] [address]- Telecom: Name: Arnel Alcantara DO Position: [facility] Renal MD Member Role: Lifetime Consulting Physician Address: [address] [facility] [place] [address]- Telecom: Name: Maria Isabel Charles RN Position: S RN Member Role: Primary Care Nurse Name: Letitia Ragland RN Position: S RN Member Role: Primary Care Nurse Name: Jose Preston RN Position: [facility] ED RN W/OE and Tasks Member Role: Primary Care Nurse Name: Mariela Grimes RN Position: S RN Member Role: Primary Care Nurse Name: Chetna Barajas RN Position: [facility] RN Member Role: Primary Care Nurse Name: Liliam Read RN Position: S RN Member Role: Primary Care Nurse Care Team Related Persons Name: NAYELI SON Name: SAIRA SON Insurance Providers Guarantor name: EFREN SON Health Plan Information #: 1 Payer: MEDICARE B Payer Identifier: SHIN Member Number: [id number] Group Number: [id number] Subscriber Identifier: NA Relationship to Subscriber: self Coverage Type: NA Coverage Verification Date: NA Telecom: NA Address: NA Health Plan Information #: 2 Payer: [facility] [employer] Payer Identifier: SHIN Member Number: [id number] Group Number: [id number] Subscriber Identifier: SHIN Relationship to Subscriber: spouse Coverage Type: Commercial Indemnity Coverage Verification Date: NA Telecom: NA Address: NA
--- NOTE | 2024-12-24 13:18 | MHC.OFFVIS ---
Vital Signs 12/24/24 13:21 Height 5 ft 10 in Weight 173 lb 1.006 oz BMI 24.8 BP 108/52 L Blood Pressure Location Lt brachial Position Sitting Pulse 62 Pulse Source Pulse Oximeter Pulse Oximetry (%) 98 Oxygen Delivery Method Room Air Intake Visit Reasons: Obstructive sleep apnea Procedures Rn Required: No Accompanied by: Self / Same As Patient Allergies cefuroxime (From Ceftin) Allergy (Intermediate, Verified 12/24/24 13:22) Hives ciprofloxacin (From Cipro) Allergy (Intermediate, Verified 12/24/24 13:22) tendon issues HPI Comments Details: The patient is here for pulmonary evaluation. The patient is a 79-year-old gentleman known history of sleep apnea in addition to Crohn's disease. Apparently he had a very eventful hospitalization at [facility] where he was found to have a bowel obstruction. He did undergo surgery. It was at the area of the anastomosis from his previous surgery 40 years ago plus. Tolerated the surgery well though he lost about 20 lb. He has been off the CPAP he has not been using it regularly. The patient has a hard time sleeping with it. He also has a hard time sleeping in general. He had been on Ambien in the past and then subsequently switch over to Lunesta. He also has issues with neuropathy and has been on gabapentin at nighttime. Still even with the gabapentin in the Lunesta he has a hard time sleeping. Sometimes he goes to bed around 23:00 in the morning and sleeps minimal. He does have some daytime drowsiness. Wappapello score is elevated to over 24 he does take naps during the daytime. Will go ahead and improve his sleep-wake cycle by adjusting his sleep aids to see if we can get him sleeping better at nighttime in more awake during the daytime. I do believe that he is if able to sleep he will be able to use his machine. I did request for a access to his machine from his [employer] to try to adjusted so we can tolerated better. Currently has an N30 I mask that he seems to tolerate well. Also, he did have a CT scan of the abdomen while he was at [facility] back in September 2024 which I personally reviewed. Lung windows are okay except for about all atelectasis. We did talk about deep breathing exercises [facility] Medical History (Updated 12/24/24 @ 21:25 by Livan Darby MD) Crohn's colitis Insomnia MARIA GUADALUPE (obstructive sleep apnea) Social History (Updated 12/24/24 @ 13:26 by Peggy Miller CMA) Patient Tobacco Use Status: Never used Tobacco Review of Systems Const Reports daytime sleepiness, Reports difficulty sleeping, Reports snoring and Reports weight loss Eyes Reports no additional complaints ENT Denies nasal obstruction Card Denies chest pain and Reports dyspnea on exertion Resp Reports dyspnea on exertion, Reports snoring and Denies wheezing GI Reports as per HPI and Reports abdominal pain Musc Reports no additional complaints Skin/Breast Denies rash Neuro Reports no additional complaints Fred/Lymph Reports no additional complaints Aller/Immun Denies wheezing Physical Exam Vital Signs: Last Vital Signs Pulse 62 12/24/24 13:21 BP 108/52 L 12/24/24 13:21 Pulse Ox 98 12/24/24 13:21 Oxygen Delivery Method Room Air 12/24/24 13:21 BMI result Body Mass Index 24.8 Assessment & Plan Assessment & Plan (1) MARIA GUADALUPE (obstructive sleep apnea): Code(s): G47.33 - Obstructive sleep apnea (adult) (pediatric) Category: Medical (2) Insomnia: Code(s): G47.00 - Insomnia, unspecified Category: Medical Qualifiers: Insomnia type: primary Qualified Code(s): F51.01 - Primary insomnia Plan Continue APAP, requesting airview access Increase Lunesta 2->3mg QHS Conitnue Gabapentin 400mg QHS (300+100). Consider increasing 600mg (300+300) if no better Sleep behavioral therapy F/U 3-4 months Medications: New eszopiclone (Lunesta) 3 mg PO BEDTIME 30 tabs 3RF 30 days Coding Level of Care Code New Pt Level 4 (39591) Diagnoses MARIA GUADALUPE (obstructive sleep apnea) G47.33 Primary insomnia F51.01 Insomnia type: primary Time Spent (min) 40
[2024-12-24 13:21] VITALS: BP 108/52; PULSE 62; O2SAT 98; BMI 24.8
--- OUTSIDE RECORDS SUMMARY | 2024-12-24 14:22 | XMS_ITS | Clinical Summary ---
Author Organization [facility] Address [address] [place] [address] Care Team Providers Care Integration Project Manager Name Role Phone Rick Hammond MD Primary Care Provider [phone] Medications Cholestyramine (QUESTRAN) 4 g packet 0 2021 Active Cyanocobalamin (B-12) 1000 MCG Tab 0 2021 Active Potassium Chloride Keren CR (KLOR-CON M10) 10 MEQ CR tablet 0 2021 Active Losartan Potassium (Cozaar) 100 MG tablet 0 2021 Active Finasteride (PROSCAR) 5 MG tablet 0 2021 Active Tamsulosin HCl (FLOMAX) 0.4 MG Cap 0 2021 Active Active Problems Problem Noted Date Diagnosed Date PND (post-nasal drip) 04/02/2021 Nasal congestion 04/02/2021 Chronic nasopharyngitis 04/02/2021 Social History Tobacco Use Types Packs/Day Years Used Date Smoking Tobacco: Never Assessed Comments:Smoking Status:Mathieue augie a smoker Sex and Gender Information Value Date Recorded Sex Assigned at Not on file Legal Sex Male 7:22 PM EDT Gender Identity Not on file Sexual Orientation Not on file Plan of Treatment Health Maintenance Due Date Last Done Comments Hepatitis C Screening 1945 DTaP/Tdap/Td (1 - Tdap) 1965 Colon Cancer Screening 1992 Pneumococcal 50+ years (1 of 1 - PCV) 1997 Zoster (Shingrix) (1 of 2) 1997 RSV (1 - 1-dose 75+ series) 2022 COVID-19 Vaccine (2023-2 5 season) 2024 Influenza (#1) 2024 HPV Vaccine (No Doses Required) Completed Hep A Aged Out No longer eligi ble based on patient's age to complete this topic Hep B Aged Out No longer eligi ble based on patient's age to complete this topic Hib Aged Out No longer eligi ble based on patient's age to complete this topic Meningococcal ACWY Aged Out No longer eligible based on patient's age to complete this topic Zoster (Zostavax) Discontinued Care Teams Integration Project Manager Relationship Specialty Start Date End Date Rick Hammond MD [address] [address] PCP - General 11/28/22
--- OUTSIDE RECORDS SUMMARY | 2024-12-24 14:22 | XMS_ITS | Encounter Summary ---
Author Organization [facility] Address [address] [place] [address] Phone Care Team Providers Care Lead Housekeeper Name Role Phone Janice Mcgowan MD Unavailable [phone] Jeremie Dias MD Unavailable Unareal pang Pcp, Unknown Primary Care Provider UnavailBj Boothe MD Primary Care Provider [phone] Encounter Details Date Type Department Care Team (Late st Contact Info) Description 07/15/2021 Procedure Pass [facility] Cardiac US [address] [place] [address] Social History Tobacco Use Types Packs/Day Years Used Date Smoking Tobacco: Never Smokeless Tobacco: Never Alcohol Use Standard Drinks/Week Comments Not Currently 0 (1 standard drink = 0.6 oz pur e alcohol) Sex and Gender Information Value Date Recorded Sex Assigned at Male 02/13/2020 11:42 AM EDT Legal Sex Male 5:42 PM EST Gender Identity Male 02/13/2020 11:42 AM EDT Sexual Orientation Straight 02/13/2020 11 :42 AM EDT documented as of this encounter Plan of Treatment Upcoming Encounters Date Type Department Care Team (Late st Contact Info) Description 01/29/2025 3:00 PM EDT Office Visit [facility] [address] [facility] 10th [place] [address] Jay Zaidi MD [address] [place] [address]--[place] [address] [email or web address] documented as of this encounter Visit Diagnoses Not on filedocumented in this encounter Care Teams Lead Housekeeper Relationship Specialty Start Date End Date Pcp, Unknown PCP - General 06/25/21 08/04/21 Bj White MD [address] [facility] [address] [place] [address] PCP - General Family Medicine 08/05/21 Janice Mcgowan MD [address] [place] [address] Gastroenterology 04/09/20 Jeremie Dias MD [address] [place] [address] Shift Production Supervisor Cardiology 03/29/21 documented as of this encounter Additional Source Comments The information contained in this document represents components of the legal health record. It is not the complete legal health record.[facility]
--- OUTSIDE RECORDS SUMMARY | 2024-12-24 14:22 | XMS_ITS | Encounter Summary ---
Author Organization [facility] Address [address] [place] [address] Phone Care Team Providers Care Mash Tub Cooker Operator Name Role Phone Janice Mcgowan MD Unavailable [phone] Jeremie Dias MD Unavailable Unareal pang Pcp, Unknown Primary Care Provider UnavailBj Boothe MD Primary Care Provider [phone] Encounter Details Date Type Department Care Team (Late st Contact Info) Description 07/30/2021 Procedure Pass [facility] Cardiology Department [address] [facility] Cardiovascular [place] - [address] [place] [address] Social History Tobacco Use Types Packs/Day Years [...] Description 01/29/2025 3:00 PM EDT Office Visit [facility] [address] [facility] 10th [place] [address] Jay Zaidi MD [address] [place] [address]--[place] [address] [email or web address] documented as of this encounter Visit Diagnoses Not on filedocumented in this encounter Care Teams Mash Tub Cooker Operator Relationship Specialty Start Date End Date Pcp, Unknown PCP - General 06/25/21 08/04/21 Bj White MD [address] [facility] [address] [place] [address] PCP - General Family Medicine 08/05/21 Janice Mcgowan MD [address] [place] [address] Gastroenterology 04/09/20 Jeremie Dias MD [address] [place] [address] Doctor Of Podiatric Medicine Cardiology 03/29/21 documented as of this encounter Additional Source Comments The information contained in this document represents components of the legal health record. It is not the complete legal health record.[facility]
--- OUTSIDE RECORDS SUMMARY | 2024-12-24 14:22 | XMS_ITS | Encounter Summary ---
Author Organization [facility] Address [address] [place] [address] Phone Care Team Providers Care Sales Consultant Residential Manager Name Role Phone Janice Mcgowan MD Unavailable [phone] Jeremie Dias MD Unavailable Unareal pang Pcp, Unknown Primary Care Provider UnavailBj Boothe MD Primary Care Provider [phone] Encounter Details Date Type Department Care Team (Late st Contact Info) Description 07/12/2021 Procedure Pass [facility] Cardiac US [address] [place] [address] Social History Tobacco Use Types Packs/Day Years [...] AM EDT documented as of this encounter Functional Status * Calculated C-SSRS Risk Score (Lifetime/Recent) Answer Date of Assessment Author No Risk Indicated 07/13/2021 4:00 AM EDT Chetna Nathan RN * [place] Suicide Severity Rating Scale (Screener/Recent Self-Report) Question Answer Date of Assessment Author 1. Wish to be (Past 1 Month) No 07/13/2021 4:00 AM EDT Eyad Enriquez, TARIK 2. Non-Specific Active Suici shruthi Thoughts (Past 1 Month) No 07/13/2021 4:00 AM EDT Chetna Enriquez, TARIK 6. Suicidal Behavior (Lifetime) No 4:00 AM EDT Chetna Enriquez, TARIK documented as of this encounter Plan of Treatment Upcoming Encounters Date Type Department Care Team (Late st Contact Info) Description 01/29/2025 3:00 PM EDT Office Visit [facility] [address] [facility] 10th [place] [address] Jay Zaidi MD [address] [place] [address]--[place] [address] [email or web address] documented as of this encounter Visit Diagnoses Not on filedocumented in this encounter Care Teams Sales Consultant Residential Manager Relationship Specialty Start Date End Date Pcp, Unknown PCP - General 06/25/21 08/04/21 Bj White MD [address] [facility] 207 [place] [address] PCP - General Family Medicine 08/05/21 Janice Mcgowan MD [address] [address] Gastroenterology 04/09/20 Jeremie Dias MD [address] [place] [address] Rough Rounder Machine Cardiology 03/29/21 documented as of this encounter Additional Source Comments The information contained in this document represents components of the legal health record. It is not the complete legal health record.[facility]
--- OUTSIDE RECORDS SUMMARY | 2024-12-24 14:22 | XMS_ITS | Encounter Summary ---
Author Organization [facility] Address [address] [place] [address] Phone Care Team Providers Care Lead Javascript Engineer Name Role Phone Bj White MD Primary Care Provider [phone] Encounter Details Date Type Department Care Team (Late st Contact Info) Description 12/28/2021 Documentation Only [facility] [address] [place] [address] Arnel Alcantara DO [address] [facility] [place] [address] Social History Tobacco Use Types Packs/Day Years Used Date Smoking Tobacco: Never Smokeless Tobacco: Never Alcohol Use Standard Drinks/Week Comments No 0 (1 standard drink = 0.6 oz pur e alcohol) Sex and Gender Information Value Date Recorded Sex Assigned at Not on file Legal Sex Male 4:49 PM EST Gender Identity Not on file Sexual Orientation Not on file documented as of this encounter Plan of Treatment Upcoming Encounters Date Type Department Care Team (Late st Contact Info) Description 01/03/2025 2:15 PM EDT Office Visit [facility] [address] [place] [address] Arnel Alcantara DO [address] [facility] [address] documented as of this encounter Visit Diagnoses Not on filedocumented in this encounter Care Teams Lead Javascript Engineer Relationship Specialty Start Date End Date Bj White MD [address] [phone] PCP - General Family Medicine 03/15/21 documented as of this encounter
--- OUTSIDE RECORDS SUMMARY | 2024-12-24 14:23 | XMS_ITS | Encounter Summary ---
Author Organization [facility] Address [address] [place] [address] Phone Care Team Providers Care Junior Systems Engineer Name Role Phone Bj White MD Primary Care Provider [phone] Encounter Details Date Type Department Care Team (Late st Contact Info) Description 12/20/2023 Documentation Only [facility] [address] [place] [address] Arnel Alcantara DO [address] [facility] [place] [address] Social History Tobacco Use Types [...] Visit [facility] [address] [place] [address] Arnel Alcantara DO [address] [facility] [place] [address] documented as of this encounter Visit Diagnoses Not on filedocumented in this encounter Care Teams Junior Systems Engineer Relationship Specialty Start Date End Date Bj White MD [address] [phone] PCP - General Family Medicine 03/15/21 documented as of this encounter
--- OUTSIDE RECORDS SUMMARY | 2024-12-24 14:23 | XMS_ITS | Encounter Summary ---
Author Organization [facility] Address [address] [place] [address] Phone Care Team Providers Care Bench Chemist Name Role Phone Jarek Tate MD Primary Care Provider [phone] Janice Mcgowan MD Unavailable [phone] Jeremie Dias MD Unavailable Latoya pang Pcp, Unknown Primary Care Provider Unavailyue e Bj White MD Primary Care Provider [phone] Encounter Details Date Type Department Care Team (Late st Contact Info) Description 10/31/2019 Procedure Pass [facility] [address] [facility] [address] [place] [address] Social History Tobacco Use Types Packs/Day Years Used Date Smoking Tobacco: Never Sex and Gender Information Value Date Recorded Sex Assigned at Male 02/13/2020 11:42 AM EDT Legal Sex Male 5:42 PM EST Gender Identity Male 02/13/2020 11:42 AM EDT Sexual Orientation Straight 02/13/2020 11 :42 AM EDT documented as of this encounter Plan of Treatment Upcoming Encounters Date Type Department Care Team (Late st Contact Info) Description 01/29/2025 3:00 PM EDT Office Visit [facility] [address] [place] [address] Jay Zaidi MD [address] [place] [address]--[place] [address] [email or web address] documented as of this encounter Visit Diagnoses Not on filedocumented in this encounter Care Teams Bench Chemist Relationship Specialty Start Date End Date Jarek Tate MD [address] [phone] PCP - General 10/22/13 06/24/21 Pcp, Unknown PCP - General 06/25/21 08/04/21 Bj White MD [address] [place] [phone] PCP - General Family Medicine 08/05/21 Janice Mcgowan MD [address] [place] [address] Gastroenterology 04/09/20 Jeremie Dias MD [address] [place] [address] Office Coordinator Cardiology 03/29/21 documented as of this encounter Additional Source Comments The information contained in this document represents components of the legal health record. It is not the complete legal health record.[facility]
--- OUTSIDE RECORDS SUMMARY | 2024-12-24 14:23 | XMS_ITS ---
Author Name [facility] Organization Unknown History of Medication Use Medication Directions Dispensed Refills Start Date End Date Status celeCOXIB (CeleBREX) 100 MG capsule Take 1 capsule (100 mg total) by mouth 2 (two) times a day. 09/19/19 25 active HYDROcodone-acetaminophe n (NORCO) 5-325 mg per tablet Take 1 tablet by mouth 4 times daily (every 6 hours) as needed for severe pain. Max Daily Amount: 4 tablets 09/18/19 25 active celeCOXIB (CeleBREX) 50 MG capsule Take 2 capsules (100 mg total) by mouth 2 (two) times a day. 09/03/19 25 active budesonide (PULMICORT) 0.5 mg/2 mL nebulizer solution Please mix 2 ml vial into nasal solution twice daily as instructed for 30 days. 08/07/19 25 active alfuzosin (UROXATRAL) 10 MG 24 hr tablet Take 1 tablet (10 mg total) by mouth daily. 08/06/19 25 active SUPPLY DME [facility] Custom Cushion Inserts Dx: Metatarsalgia Therafeet Address: [address] [place] [address] 07/31/19 25 active Perfluorohexyloctane (Miebo) 1.338 GM/ML Solution instill 1 drop into both eyes 4 times daily 07/14/19 25 active tamsulosin (FLOMAX) 0.4 MG capsule Take 1 capsule (0.4 mg total) by mouth daily. 07/04/19 25 active methocarbamol (ROBAXIN) 750 MG tablet Take 1 tablet (750 mg total) by mouth 3 (three) times a day. 06/29/19 25 active prednisone 10 mg tablet Take 4 tablet(s) EVERY DAY by oral route for 2 days, then decrease by 1 pill every 2 days until gone (4,4,3,3,2,2,1,1) 05/16/19 active dicyclomine (BENTYL) 10 MG capsule TAKE 1 CAPSULE (10 MG TOTAL) BY MOUTH 2 (TWO) TIMES A DAY IF NEEDED (ABDOMINAL DISCOMFORT). 04/08/20 24 active betamethasone acetate-betamethasone sodium phosphate (CELESTONE) injection 9 mg 9 mg, Intra-articular, Once PRN Procedure, Starting on Mon11/22/23 at 0830, For 1 dose 11/22/19 24 024 completed acetaminophen-codeine (TYLENOL #2) 300-15 MG per tablet Take by mouth. Pt takes half tab daily 10/10/19 active adalimumab (HUMIRA) 40 MG/0.4ML pen-injector kit CITRATE FREE Inject under the skin. 10/10/19 active finasteride (PROSCAR) 5 MG tablet Take 1 tablet (5 mg total) by mouth daily. 10/10/19 active Potassium Citrate ER 15 MEQ (1620 MG) Tab CR Take 1 tablet by mouth daily. 10/10/19 active betamethasone acetate-betamethasone sodium phosphate (CELESTONE) injection 3 mg 04/05/20 active OMEprazole (PriLOSEC) 20 MG capsule Take 1 tablet by mouth daily. 01/07/20 active diclofenac sodium (VOLTAREN) 1 % gel Apply topically daily. Please dispense compounding medication for nerve pain, P2 Dispense 60gm. As needed refills 12/08/19 22 active atenoloL (TENORMIN) 25 mg tablet 0.25 mg in the morning. 10/20/19 22 active aspirin 325 mg tablet Take 1 tablet by mouth daily. 07/29/19 22 active Restasis 0.05 % ophthalmic emulsion Administer 1 drop into both eyes 2 (two) times a day. 04/29/19 22 aborted tadalafiL (CIALIS) 10 mg tablet Take 1 tablet by mouth once as needed. 02/03/20 active celecoxib (CeleBREX) 200 mg capsule Take 1 capsule by mouth daily. 01/26/20 active tamsulosin (FLOMAX) capsule 0.4 mg. TAKE 1 CAPSULE BY MOUTH EVERY DAY IN THE EVENING 12/28/19 active potassium citrate 15 mEq tablet extended release Take 2 tablets by mouth daily. 12/13/19 active eszopiclone (LUNESTA) tablet Take 3 mg by mouth nightly. 11/18/19 active finasteride (PROSCAR) 5 mg tablet Take 5 mg by mouth daily. 11/18/19 active azithromycin 500 mg tablet PLEASE SEE ATTACHED FOR DETAILED DIRECTIONS active bisoprolol fumarate 5 mg tablet TAKE 1/2 TABLET BY MOUTH TWICE A DAY active budesonide 0.5 mg/2 mL suspension for nebulization USE 1 VIAL PER NOSTRIL NASAL RINSE TWICE DAILY active cholestyramine (with sugar) 4 gram powder for susp in a packet TAKE 1 PACKET DISSOLVED IN WATER ONCE A DAY active clotrimazole-betamethaso ne 1 %-0.05 % topical cream USE TOPICALLY TWO TIMES DAILY ON NAVEL AREA, DO NOT USE FOR MORE THAN 2 WEEKS AT A TIME. active cyanocobalamin (vit B-12) 1,000 mcg/mL injection solution INJECT 1 ML SUBCUTANEOUSLY ONCE A MONTH active desvenlafaxine succinate ER 25 mg tablet,extended release 24 hr TAKE 1 TABLET BY MOUTH DAILY,DO NOT CRUSH OR CHEW, MAKE SURE TO TAKE IN THE MORNING. active desvenlafaxine succinate ER 50 mg tablet,extended release 24 hr TAKE 1 TABLET BY MOUTH EVERY DAY active diazepam 5 mg tablet PLEASE SEE ATTACHED FOR DETAILED DIRECTIONS active dicyclomine 10 mg capsule TAKE 1 CAPSULE (10 MG TOTAL) BY MOUTH 2 (TWO) TIMES A DAY IF NEEDED (ABDOMINAL DISCOMFORT). active eszopiclone 2 mg tablet active finasteride 5 mg tablet TAKE 1 TABLET BY MOUTH EVERY DAY IN THE MORNING active gabapentin 100 mg capsule PLEASE SEE ATTACHED FOR DETAILED DIRECTIONS active gabapentin 300 mg capsule TAKE 1 CAPSULE BY MOUTH EVERY DAY active Humira(CF) Pen 40 mg/0.4 mL subcutaneous kit activ e lidocaine 5 % topical ointment APPLY TOPICALLY 3 TIMES A DAY X 30 DAYS, APPLY TO FEET, WASH HANDS THOROUGHLY AFTER APPLICATION active Miebo (PF) 100 % eye drops INSTILL 1 DROP INTO BOTH EYES 4 TIMES DAILY active omeprazole 20 mg capsule,delayed release TAKE 1 CAPSULE BY MOUTH EVERY DAY active Plenvu 140 gram-9 gram-5.2 gram powder packs USE 3 PACKET DISSOLVED IN WATER DIRECTED FOLLOW INSTRUCTIONS GIVEN TO YOU BY OFFICE active pramipexole 0.125 mg tablet TAKE 2 TABLETS BY MOUTH 1 HOUR PRIOR TO BEDTIME active pramipexole 0.25 mg tablet TAKE 2 TABLET BY MOUTH 2 TIMES A DAY,MAY TAKE ADDITIONAL TABLE AT NIGHT NEEDED active prednisone 20 mg tablet TAKE 2 TABLETS B Y MOUTH EVERY DAY FOR 10 DAYS OR UNTIL OTHERWISE INSTRUCTED BY GI active Skyrizi 360 mg/2.4 mL (150 mg/mL) subcutaneous wearable injector active Skyrizi 60 mg/mL intravenous solution acti ve sulfamethoxazole 800 mg-trimethoprim 160 mg tablet TAKE 1 TABLET BY MOUTH TWICE A DAY FOR 7 DAYS active tadalafil 5 mg tablet TAKE 1 TABLET BY MOUTH EVERY DAY IN THE MORNING active Tyrvaya 0.03 mg/spray nasal spray SPRAY INTO EACH NOSTRIL TWOTIMES A DAY active acetaminophen (TYLENOL) 80 MG chewable tablet Chew 1 tablet (80 mg total) 4 times daily (every 6 hours) as needed for mild pain. active alpha lipoic acid 300 mg capsule Take 300 mg by mouth daily. active bisoprolol (ZEBeta) 5 MG tablet Take 2 mg by mouth daily. active bran/gum/fib/aimee/psyl/ke lp/pec (FIBER 6 ORAL) Take 1 tablet by mouth 2 (two) times a day. active Cholecalciferol 50 MCG (2000 UT) Tab Take 2,000 Units by mouth. active cholecalciferol, vitamin D3, 50 mcg (2,000 unit) tablet Take 2,000 Units by mouth daily. active cholestyramine (QUESTRAN) 4 GM/DOSE powder Take by mouth 2 (two) times a day with meals. Add to liquid and stir until completely mixed. active clotrimazole-betamethaso ne (LOTRISONE) cream USE TOPICALLY TWO TIMES DAILY ON NAVEL AREA, DO NOT USE FOR MORE THAN 2 WEEKS AT A TIME. active cyanocobalamin, vitamin B-12, 1,000 mcg/mL kit Inject 1,000 mg as directed every 30 (thirty) days. active diclofenac sodium (VOLTAREN) 1 % gel Apply 4 g topically 2 (two) times a day. active eszopiclone (LUNESTA) 2 MG tablet Take 1 tablet (2 mg total) by mouth nightly. Take immediately before bedtime active gabapentin (NEURONTIN) 600 MG tablet Take 1 tablet (600 mg total) by mouth 3 (three) times a day. active mupirocin (BACTROBAN) 2 % ointment As needed active pramipexole (miraPEx) 0.125 MG tablet Take 1 tablet (0.125 mg total) by mouth 3 (three) times a day. active risankizumab-rzaa (Skyrizi) 600 mg/10 mL iv injection active tadalafil (CIALIS) 2.5 MG tablet Take 1 tablet (2.5 mg total) by mouth daily as needed for erectile dysfunction. active Tyrvaya 0.03 MG/ACT Solution SPRAY INTO EACH NOSTRIL TWOTIMES A DAY active Allergies Allergen Reaction Severity Comment Documented Date Source Statu s BENZONATATE NAUSEA AND VOMITING 10/10/2023 [facility] active METOPROLOL OTHER (SEE COMMENTS) 06/03/2022 [facility] active CEPHALEXIN OTHER (SEE COMMENTS) 07/11/2020 [facility] active RAMELTEON UNKNOWN/PATIENT AND FAMILY UNABLE TO DEFINE 04/26/2013 [facility] active GABAPENTIN UNKNOWN/PATIENT AND FAMILY UNABLE TO DEFINE 04/05/2013 [facility] active CEFUROXIME OTHER (SEE COMMENTS) 10/14/2010 [facility] active ATENOLOL NAUSEA ONLY [facility] Problems Problem Status Onset Date Problem Type Date of Resolution Source Cervical arthritis active 2024-05-16 ProblemAct [facility] Neck pain active 2024-05-23 ProblemAct [facility] Tendinitis of left posterior tibial tendon active 2024-12-12 ProblemAct [facility] Idiopathic peripheral neuropathy active 2024-05-23 ProblemAct [facility] Obstructive sleep apnea syndrome active 2013-04-26 ProblemAct [facility] Cyst of epididymis active 2024-07-31 ProblemAct [facility] Coronary artery disease active 2024-07-31 ProblemAct [facility] Primary osteoarthritis of both hands active EncounterDiagnosisAct [facility] Blood in urine active 2021-08-[address] Pain in both feet active 2021-09-30 ProblemAct [facility] Calculus of kidney and ureter active 2020-07-11 ProblemAct [facility] Neuropathy active 2024-07-31 ProblemAct [facility] Abnormal blood level of copper active 2018-03-14 ProblemAct [facility] Diverticulitis active 2024-07-[address] Deviated nasal septum active 2013-04-26 ProblemAct [facility] Pain in limb active 2013-08-19 ProblemAct [facility] Non-toxic uninodular goiter active 2013-04-26 ProblemAct [facility] Spondylitis active 2015-10-23 ProblemAct [facility] Dependence on continuous positive airway pressure ventilation active 2024-05-27 ProblemAct [facility] Left ventricular outflow tract obstruction active 2024-07-10 ProblemAct [facility] Cervical arthritis active 2024-05-16 ProblemAct [facility] History of atrial fibrillation active 2021-11-20 ProblemAct [facility] Mitral valve insufficiency active 2021-05-18 ProblemAct [facility] Systolic murmur active 2020-11-16 ProblemAct [facility] PND (post-nasal drip) active 2021-04-02 ProblemAct [facility] 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 2021-08-03 ProblemAct [facility] Benign prostatic hyperplasia with urinary obstruction active 2020-07-11 ProblemAct [facility] Dizziness and giddiness active 2012-11-08 ProblemAct [facility] Headache active 2013-04-05 ProblemAct [facility] Ganglion cyst of finger active EncounterDiagnosisAct [facility] Male erectile dysfunction, unspecified active 2024-07-31 ProblemAct [facility] Stage 3a chronic kidney disease active 2022-06-07 ProblemAct [facility] Idiopathic peripheral neuropathy active 2013-04-26 ProblemAct [facility] Essential (primary) hypertension active 2024-07-31 ProblemAct [facility] Vitamin D deficiency active 2020-07-11 ProblemAct [facility] Restless legs active 2021-11-22 ProblemAct [facility] T S/P MVR (mitral valve repair) active 2024-07-10 ProblemAct [facility] Benign prostatic hyperplasia active 2024-07-31 ProblemAct [facility] Chronic sinusitis active 2012-04-04 ProblemAct [facility] Hyperlipidemia active 2013-04-[address] Chronic kidney disease, stage 2 (mild) active 2020-07-13 ProblemAct [facility] Chronic nasopharyngitis active 2021-04-02 ProblemAct [facility] Migraine active 2013-04-26 ProblemAct [facility] Sleep apnea active 2020-07-11 ProblemAct [facility] Crohn's colitis active 2024-02-28 ProblemAct [facility] Malaise and fatigue active 2012-11-08 ProblemAct [facility] Sensorineural hearing loss, bilateral active 2024-07-31 ProblemAct [facility] Kidney stone active 2011-03-29 ProblemAct [facility] Viral disease active 2011-12-16 ProblemAct [facility] T Metatarsalgia active 2018-05-11 ProblemAct [facility] T Overweight active 2013-04-26 ProblemAct [facility] Influenza vaccine needed active 2012-01-17 ProblemAct [facility] Pain in both hands active EncounterDiagnosisAct [facility] Small bowel obstruction active 2017-03-10 ProblemAct [facility] Scrotal mass active 2024-07-31 ProblemAct [facility] Tinea corporis active 2024-07-[address] [facility] arthritis active EncounterDiagnosisAct [facility] Gastroesophageal reflux disease active 2024-07-31 ProblemAct [facility] Crohn's disease active 2011-07-15 ProblemAct [facility] Contusion of finger active 2011-12-16 ProblemAct [facility] Crohn disease of small intestine in remission active 2024-07-31 ProblemAct [facility] Allergic rhinitis due to pollen active 2016-07-13 ProblemAct [facility] Carpal tunnel syndrome active 2013-04-26 ProblemAct [facility] Nasal congestion active 2021-04-02 ProblemAct [facility] Insomnia active 2013-04-26 ProblemAct [facility] Hypocupremia active 2020-05-04 ProblemAct [facility] Acute kidney failure, unspecified active 2020-07-11 ProblemAct [facility] Anemia active 2020-07-11 ProblemAct [facility] Benign paroxysmal positional vertigo active 2013-04-26 ProblemAct [facility] Chronic pain disorder active 2024-05-27 ProblemAct [facility] Encounter for fitting and adjustment of hearing aid active 2024-07-31 ProblemAct [facility] Medial epicondylitis active 2013-04-12 ProblemAct [facility] History of renal calculi active 2016-04-12 ProblemAct [facility] Psoriasis active 2011-12-16 ProblemAct [facility] Allergic rhinitis active 2013-04-26 ProblemAct [facility] Crohn's disease active 2012-04-[address] [facility] Idiopathic peripheral neuropathy active 2021-09-30 ProblemAct [facility] Hypertension active 2021-02-09 ProblemAct [facility] Immunizations Vaccine Date Source Lot Number Status Influenza High-Dose Trivalen t,(FLUZONE HIGH-DOSE), Perservative Free IM 0.5 mL 65 years and older 01/12/2024 [facility] [id number] completed Influenza High-Dose Quadriva lent,(FLUZONE HIGH-DOSE), Perservative Free IM 0.7 mL 65 years and older 12/25/2022 [facility] completed Influenza, Quadrivalent (FLU AD) Adjuvanted Preservative Free IM 65 years and older 12/25/2022 [facility] [id number] completed RSV, Recombinant, Protein Hughes bunit RSV Prefusion F (AREXVY), Adjuvant Recon 0.5 mL PF 12/16/2022 CCT [id number] completed RSV, Unspecified 12/16/2022 [facility] complete d Influenza High-Dose Quadriva lent,(FLUZONE HIGH-DOSE), Perservative Free IM 0.7 mL 65 years and older 01/10/2022 [facility] [id number] completed Pneumococcal Conjugate 20-Valent 12/22/2021 [facility] [id number] completed COVID-19 MRNA (MODERNA) 06/03/2021 [facility] [id number] c ompleted Influenza High-Dose Quadriva lent,(FLUZONE HIGH-DOSE), Perservative Free IM 0.7 mL 65 years and older 01/02/2021 [facility] [id number] completed Influenza, Unspecified 01/02/2021 [facility] [id number] co mpleted COVID-19 MRNA (MODERNA) 12/06/2020 [facility] [id number] c ompleted Zoster Vaccine Recombinant (Shingrix) 10/20/2020 [facility] [id number] completed COVID-19 MRNA (MODERNA) 06/23/2020 [facility] [id number] c ompleted COVID-19 MRNA (MODERNA) 05/26/2020 [facility] [id number] c ompleted Zoster Vaccine Recombinant (Shingrix) 05/03/2020 [facility] [id number] completed Influenza (AFLURIA/FLUZONE) Inactivated/Split Quadrivalent with Preservative IM 12/20/2019 [facility] completed Influenza (AFLURIA/FLUZONE) Inactivated/Split Quadrivalent with Preservative IM 12/07/2019 [facility] completed Influenza High-Dose Quadriva lent,(FLUZONE HIGH-DOSE), Perservative Free IM 0.7 mL 65 years and older 12/07/2019 [facility] [id number] completed Influenza High-Dose Quadriva lent,(FLUZONE HIGH-DOSE), Perservative Free IM 0.7 mL 65 years and older 01/27/2019 [facility] completed Influenza High-Dose Trivalen t,(FLUZONE HIGH-DOSE), Perservative Free IM 0.5 mL 65 years and older 01/27/2019 [facility] [id number] completed Influenza, Unspecified 01/27/2019 [facility] co mpleted Td 03/02/2018 [facility] [id number] completed Td 03/02/2018 [facility] [id number] completed Influenza High-Dose Quadriva lent,(FLUZONE HIGH-DOSE), Perservative Free IM 0.7 mL 65 years and older 01/11/2018 [facility] [id number] completed Influenza High-Dose Trivalen t,(FLUZONE HIGH-DOSE), Perservative Free IM 0.5 mL 65 years and older 01/11/2018 [facility] [id number] completed Influenza, Unspecified 01/11/2018 [facility] [id number] co mpleted Pneumococcal Conjugate 13-Valent 08/04/2017 [facility] [id number] completed Influenza High-Dose Quadriva lent,(FLUZONE HIGH-DOSE), Perservative Free IM 0.7 mL 65 years and older 12/20/2016 [facility] [id number] completed Influenza High-Dose Trivalen t,(FLUZONE HIGH-DOSE), Perservative Free IM 0.5 mL 65 years and older 12/20/2016 [facility] [id number] completed Influenza, Unspecified 12/20/2016 [facility] [id number] co mpleted Influenza High-Dose Quadriva lent,(FLUZONE HIGH-DOSE), Perservative Free IM 0.7 mL 65 years and older 02/23/2016 [facility] completed Influenza High-Dose Trivalen t,(FLUZONE HIGH-DOSE), Perservative Free IM 0.5 mL 65 years and older 02/23/2016 [facility] completed Influenza, Unspecified 02/23/2016 [facility] co mpleted Influenza (AFLURIA/FLUZONE) Inactivated/Split Quadrivalent with Preservative IM 01/28/2016 [facility] [id number] completed Influenza, Trivalent (FLUARI X, AFLURIA, FLULAVAL, FLUZONE) Preservative Free IM 01/23/2015 [facility] completed Pneumococcal Polysaccharide 23-Valent 04/08/2014 [facility] [id number] completed Influenza, Trivalent (FLUAD) Adjuvanted Preservative Free IM 65 years and older 02/03/2014 [facility] [id number] completed Influenza Split Preservative Free ID 01/17/2012 [facility] [id number] completed Influenza Split Preservative Free ID 01/17/2012 [facility] [id number] completed Influenza, Trivalent (FLUAD) Adjuvanted Preservative Free IM 65 years and older 01/22/2010 [facility] completed Influenza, Trivalent (FLUAD) Adjuvanted Preservative Free IM 65 years and older 01/22/2009 [facility] completed Tdap 03/27/2008 [facility] completed Influenza, Trivalent (FLUAD) Adjuvanted Preservative Free IM 65 years and older 03/06/2008 [facility] completed Influenza Virus Trivalent Sp lit Vaccine (MDV) IM 03/14/2007 [facility] completed Influenza, Trivalent (FLUAD) Adjuvanted Preservative Free IM 65 years and older 03/14/2007 [facility] completed Encounters Encounter Type Encounter Reason Primary Diagnosis Location Date Ambulatory [facility] 12/13/2024 Ambulatory [facility] 12/12/2024 Ambulatory [facility] 12/12/2024 Ambulatory [facility] 11/06/2024 Ambulatory Pain in right hand Pain in right hand [facility] 11/06/2024 Ambulatory [facility] 10/02/2024 Ambulatory Ganglion, unspecifie d hand Ganglion, unspecified hand [facility] 09/25/2024 Ambulatory [facility]IFY Ganglion, unspec ified hand [facility] 09/17/2024 Ambulatory Pain in unspecified joint Pain in unspecified joint [facility] 09/02/2024 Ambulatory Pain Pain [facility] 08/21/2024 Ambulatory Primary osteoarthritis, unspecified hand Primary osteoarthritis, unspecified hand [facility] 08/14/2024 Ambulatory Nasal Congestion Nasal Congestion [facility] 08/06/2024 Ambulatory Metatarsalgia, right foot Metatarsalgia, right foot [facility] 07/30/2024 Ambulatory Radiculopathy, cervical region Radiculopathy, cervical region [facility] 07/29/2024 Ambulatory Benign prostatic hyperplasia without lower urinary tract symptoms Benign prostatic hyperplasia without lower urinary tract symptoms [facility] 07/03/2024 Ambulatory Cervical disc disorder at C5-C6 level with radiculopathy Cervical disc disorder at C5-C6 level with radiculopathy [facility] 06/28/2024 Ambulatory Radiculopathy, cervical region Radiculopathy, cervical region [facility] 06/10/2024 Ambulatory [facility] 05/24/2024 Ambulatory [facility] 05/24/2024 Ambulatory [facility] 05/23/2024 Ambulatory [facility] 05/22/2024 Ambulatory [facility] 05/22/2024 Ambulatory [facility] 05/17/2024 Ambulatory [facility] 05/16/2024 Ambulatory [facility] 05/16/2024 Ambulatory [facility] 05/16/2024 Ambulatory [facility] 05/16/2024 Ambulatory [facility] 04/08/2024 Ambulatory Pain in right knee Pain in right knee [facility] 12/18/2023 Ambulatory Pain in right knee Pain in right knee [facility] 12/15/2023 Ambulatory Pain in right knee Pain in right knee [facility] 12/12/2023 Ambulatory Pain in right knee Pain in right knee [facility] 12/08/2023 Ambulatory Pain in right knee Pain in right knee [facility] 12/05/2023 Ambulatory [facility] 11/22/2023 Ambulatory Pain in right knee Pain in right knee [facility] 11/22/2023 Ambulatory Hallux rigidus, left foot Hallux rigidus, left foot [facility] 10/09/2023 Ambulatory [facility] 08/30/2023 Ambulatory Pain [facility] 08/30/2023 Ambulatory Unspecified mononeuropathy of left lower limb Unspecified mononeuropathy of left lower limb [facility] 06/26/2023 Ambulatory Primary osteoarthritis, unspecified hand Primary osteoarthritis, unspecified hand [facility] 06/07/2023 Ambulatory Pain in left finger(s) Pain in left finger(s) [facility] 04/05/2023 Ambulatory Pain in left finger(s) Pain in left finger(s) [facility] 04/05/2023 Ambulatory Unspecified mononeuropathy of left lower limb Unspecified mononeuropathy of left lower limb [facility] 01/06/2023 Ambulatory Spinal stenosis, lumbar region with neurogenic claudication [facility] 10/28/2022 Ambulatory Lesion of ulnar nerve, left upper limb [facility] 10/26/2022 Ambulatory Pending sale to [facility] 05/30/2022 Ambulatory Lesion of planta r nerve, left lower limb [facility] to [facility] 04/04/2022 Ambulatory Hereditary and idiopathic neuropathy, unspecified Pending [facility] to [facility] 03/29/2022 Ambulatory Pending sale to [facility] 01/28/2022 Ambulatory Foot Orthotics Pending sale to [facility] 01/04/20 Ambulatory Other bursitis, not elsewhere classified, left ankle and foot Pending [facility] to [facility] 12/07/2021 Ambulatory Pain in right foot Pending [facility] to [facility] 06/10/2021 Ambulatory Polyneuropathy, unspecified Pending [facility] to [facility] 05/25/2021 Ambulatory [facility] 03/05/2021 Ambulatory Polyneuropathy, unspecified Pending sale to [facility] 02/09/2021 Ambulatory Polyneuropathy, unspecified Pending sale to [facility] 02/09/2021 Care Team Organization Name Specialty Phone Email Start Date End Da te [facility] 11/06/2024 12/05/2024 [facility] 08/21/2024 [facility] 10/28/2022 025 [facility] 10/26/2022 10/26/2022 [facility] CASSIE WHITE Primary [facility] 10/26/2022 023 [facility] 09/24/2022 Pending sale to [facility] Cassie [facility] 022 [facility] 05/18/2021 12/23/2021 [facility] Stephany Cabrera [facility] 03/05/2021 12/11/2023 Pending sale to [facility] CASSIE WHITE [facility] 021 01/28/2022 [facility] Cassie White MD Primary Care
--- OUTSIDE RECORDS SUMMARY | 2024-12-24 14:23 | XMS_ITS | Encounter Summary ---
Author Organization [facility] Address [address] [place] [address] Phone Care Team Providers Care Wallpaper Remover Steam Name Role Phone Jarek Tate MD Primary Care Provider [phone] Janice Mcgowan MD Unavailable [phone] Jeremie Dias MD Unavailable Latoya pang Pcp, Unknown Primary Care Provider Unavailyue e Bj White MD Primary Care Provider [phone] Encounter Details Date Type Department Care Team (Late st Contact Info) Description 02/21/2020 Procedure Pass [facility] 4 ENDO DEPT 55 [facility], 4th [place] [address] Social History Tobacco Use Types Packs/Day Years [...] Description 01/29/2025 3:00 PM EDT Office Visit [address] 10th [place] [address] Jay Zaidi MD [address] [place] [address]--[place] [address] [email or web address] documented as of this encounter Visit Diagnoses Not on filedocumented in this encounter Care Teams Wallpaper Remover Steam Relationship Specialty Start Date End Date Jarek Tate MD [address] [phone] PCP - General 10/22/13 06/24/21 Pcp, Unknown PCP - General 06/25/21 08/04/21 Bj White MD [address] [place] [phone] PCP - General Family Medicine 08/05/21 Janice Mcgowan MD [address] [place] [address] Gastroenterology 04/09/20 Jeremie Dias MD [address] [place] [address] Mailing Machine Helper Cardiology 03/29/21 documented as of this encounter Additional Source Comments The information contained in this document represents components of the legal health record. It is not the complete legal health record.[facility]
--- OUTSIDE RECORDS SUMMARY | 2024-12-24 14:23 | XMS_ITS | Encounter Summary ---
Author Organization [facility] Address [address] [place] [address] Care Team Providers Care Educational Interpreter Name Role Phone Bj White MD Primary Care Provider [phone] Encounter Details Date Type Department Care Team (Late st Contact Info) Description 03/03/2021 Erroneous Encounter [facility] CONVERSION DEPT 74 [place] [address] Destiny Santillan, CARTOGRAPHY TEACHER [address] [place] [address] Social History Tobacco Use Types Packs/Day Years Used Date Smoking Tobacco: Never Assessed Sex and Gender Information Value Date Recorded Sex Assigned at Male 06/09/2024 1:58 PM EST Legal Sex Male 11:40 AM EST Gender Identity Male 07/03/2024 1:56 PM EDT Sexual Orientation Heterosexual (straight) 06/09 1:58 PM EST documented as of this encounter Plan of Treatment Upcoming Encounters Date Type Department Care Team (Late st Contact Info) Description 01/14/2025 10:00 AM EDT Office Visit [facility] [place] [address] Agapito Gallego MD [address] [place] [address] 03/05/2025 11:30 AM EST Office Visit [facility] [place] Urology [address] [address] Joe Harman MD [address] [place] [address] 03/10/2025 10:50 AM EST Office Visit [facility] Rheumatology [address] [place] [phone] Neal Qiu MD [address] [place] [address] documented as of this encounter Visit Diagnoses Not on filedocumented in this encounter Care Teams Educational Interpreter Relationship Specialty Start Date End Date Bj White MD 3640 [facility] 207 [place] [address] PCP - General Family Medicine 10/26/22 documented as of this encounter
--- OUTSIDE RECORDS SUMMARY | 2024-12-24 14:23 | XMS_ITS | Encounter Summary ---
Author Organization [facility] Address [address] [place] [address] Phone Care Team Providers Care Turf Farm Worker Name Role Phone Janice Mcgowan MD Unavailable [phone] Jeremie Dias MD Unavailable Unareal pang Pcp, Unknown Primary Care Provider UnavailBj Boothe MD Primary Care Provider [phone] Encounter Details Date Type Department Care Team (Late st Contact Info) Description 07/20/[address] [facility] Imaging - RF/IR 55 [facility], 2nd [place] [address] Social History Tobacco Use Types Packs/Day Years [...] Description 01/29/2025 3:00 PM EDT Office Visit [facility] [address] [place] [address] Jay Zaidi MD [address] [place] [address]--[place] [address] [email or web address] documented as of this encounter Visit Diagnoses Not on filedocumented in this encounter Care Teams Turf Farm Worker Relationship Specialty Start Date End Date Pcp, Unknown PCP - General 06/25/21 08/04/21 Bj White MD 3640 [facility] 207 [place] [address] PCP - General Family Medicine 08/05/21 Janice Mcgowan MD [address] [place] [address] Gastroenterology 04/09/20 Jeremie Dias MD 759 [place] [address] Senior Sql Database Developer Cardiology 03/29/21 documented as of this encounter Additional Source Comments The information contained in this document represents components of the legal health record. It is not the complete legal health record.[facility]
--- OUTSIDE RECORDS SUMMARY | 2024-12-24 14:23 | XMS_ITS | Encounter Summary ---
Author Organization [facility] Address [address] [place] [address] Phone Care Team Providers Care Mail Rider Name Role Phone Janice Mcgowan MD Unavailable [phone] Jeremie Dias MD Unavailable Unareal pang Pcp, Unknown Primary Care Provider UnavailBj Boothe MD Primary Care Provider [phone] Encounter Details Date Type Department Care Team (Late st Contact Info) Description 07/12/2021 Procedure Pass [facility] PERIOPERATIVE DEPT 55 [place] [phone] Social History Tobacco Use Types Packs/Day Years [...] Risk Indicated 07/13/2021 4:00 AM EDT Chetna Nathan, TARIK * [facility] Suicide Severity Rating Scale (Screener/Recent Self-Report) Question Answer Date of Assessment Author 1. Wish to be (Past 1 Month) No 07/13/2021 4:00 AM EDT Eyad Enriquez, TARIK 2. Non-Specific Active Suici shruthi Thoughts (Past 1 Month) No 07/13/2021 4:00 AM EDT Chetna Enriquez, TARIK 6. Suicidal Behavior (Lifetime) No 4:00 AM EDT Chetna Enriquez, RN documented as of this encounter Plan of Treatment Upcoming Encounters Date Type Department Care Team (Late st Contact Info) Description 01/29/2025 3:00 PM EDT Office Visit [facility] Plastics [facility] 243 [facility] 10th [place] [address] Jay Zaidi MD [address] [place] [address]--[place] [address] [email or web address] documented as of this encounter Visit Diagnoses Not on filedocumented in this encounter Care Teams Mail Rider Relationship Specialty Start Date End Date Pcp, Unknown PCP - General 06/25/21 08/04/21 Bj White MD [address] [facility] [place] [address] [place] [address] PCP - General Family Medicine 08/05/21 Janice Mcgowan MD [address] [address] Gastroenterology 04/09/20 Jeremie Dias MD 759 [place] [address] Laundry Tech Cardiology 03/29/21 documented as of this encounter Additional Source Comments The information contained in this document represents components of the legal health record. It is not the complete legal health record.[facility]
--- OUTSIDE RECORDS SUMMARY | 2024-12-24 14:23 | XMS_ITS | Clinical Summary ---
Author Organization [facility], Address [address] [place] [address] [place] [address] Phone Care Team Providers Care Beef Selector Name Role Phone Bj White MD Primary Care Provider [phone] Allergies Active Allergy Reactions Criticality Noted Date Comments Cefuroxime Hives,Other (see comments) Cephalexin Other (see comments) 07/11/2020 Gabapentin 04/05/2013 Metoprolol Other (see comments) 06/03/2022 Ramelteon Other (see comments) 04/26/2013 Medications acetaminophen (TYLENOL) 325 MG tablet Take 650 mg by mouth every 6 (six) hours if needed Active adalimumab (HUMIRA) 40 MG/0.8ML Pen-injector Kit Inject 40 mg under the skin Active colesevelam (WELCHOL) 625 MG tablet Take 1,250 mg by mouth 0 Active eszopiclone (Lunesta) 2 MG tablet Take 1 tablet by mouth 1 (one) time each day Active finasteride (PROSCAR) 5 MG tablet Take 1 tablet by mouth 1 (one) time each day Active gabapentin (NEURONTIN) 100 MG capsule Comments: Filled Date: Nov 17 2017 12:00AM Duration: 90 0 Active mometasone (NASONEX) 50 MCG/ACT nasal spray Comments: Filled Date: Oct 13 2016 12:00AM Patient Notes: USE 2 SPRAY INTO BOTH NOSTRILS ONCE A DAY Duration: 30 7 Active sildenafil (VIAGRA) 50 MG tablet Take 50 mg by mouth 1 (one) time each day if needed for erectile dysfunction Active Potassium Citrate ER 15 MEQ (1620 MG) tablet controlled-rele ase Take 30 mEq by mouth 1 (one) time each day 180 tablet 3 3 Active bisoprolol (ZEBETA) 5 MG tablet Take 2.5 mg by mouth in the morning and 2.5 mg in the evening. Active omeprazole (PriLOSEC) [address] capsule Take 20 mg by mouth 1 (one) time each day Do not crush or chew. Active pramipexole (MIRAPEX) 0.125 MG tablet Take 0.125 mg by mouth at bed time Active Active Problems Problem Noted Date Diagnosed Date Stage 3a chronic kidney disease 06/07/2022 Essential (primary) hypertension 05/19/2021 Chronic kidney disease, stage 2 (mild) Acute nontraumatic kidney injury 07/11/2020 Anemia 07/11/2020 Benign prostatic hyperplasia with outflow obstru ction 07/11/2020 Peripheral neuropathy 07/11/2020 Calculus of kidney and ureter 07/11/2020 Vitamin D deficiency 07/11/2020 Sleep apnea 07/11/2020 Crohn's disease 04/04/2012 Overview (07/11/2020): Crohn's disease Vertigo 03/29/2012 Overview (07/11/2020): Vertigo Immunizations Immunization Administration Dates Next Due Influenza (IM) Preservative Free 01/23/2015 Influenza Split Preservative Free ID 01/17/2012 Influenza, Quadrivalent, Wit h Preservative 12/20/2019,12/07/2019,01/28/2016 Influenza, Trivalent, Adjuvanted 014,01/22/2010,01/22/2009,03/06,03/14/2007 Influenza, Unspecified 01/02/2021,2018,01/11/2018,12/20,02/23/2016 Pneumococcal Conjugate 13-Valent 08/04/2017 Pneumococcal Polysaccharide 04/08/2014 Shingrix 10/20/2020,05/03/2020 Td 03/02/2018 Tdap 03/27/2008 Family History Medical History Relation Comments Kidney disease Child Hypertension Father Stroke Father Cancer Mother malignant append iceal neoplasm Dementia Mother Cancer Sibling lung Relation Status Comments Child Father Mother Sibling Social History Tobacco Use Types Packs/Day Years Used Date Smoking Tobacco: Never Smokeless Tobacco: Never Alcohol Use Standard Drinks/Week Comments No 0 (1 standard drink = 0.6 oz pur e alcohol) Sex and Gender Information Value Date Recorded Sex Assigned at Not on file Legal Sex Male 4:49 PM EST Gender Identity Not on file Sexual Orientation Not on file Last Filed Vital Signs Vital Sign Reading Time Taken Comments Blood Pressure 122/72 12/20/2023 3:49 PM EDT Pulse 74 12/20/2023 3:49 PM EDT Temperature - - Respiratory Rate - - Oxygen Saturation 94% 07/13/2020 3:24 PM EDT Inhaled Oxygen Concentration - - Weight 82.1 kg (181 lb) 07/13/2020 3:24 PM EDT Height 177.8 cm (5' 10 ) 07/13/2020 3:24 PM EDT Body Mass Index 25.97 07/13/2020 3:24 PM EDT Plan of Treatment Upcoming Encounters Date Type Department Care Team (Late st Contact Info) Description 01/03/2025 2:15 PM EDT Office Visit [facility] [address] [place] [address] Arnel Alcantara DO [address] [facility] [place] [phone] Health Maintenance Due Date Last Done Comments Influenza Vaccine (#1) 2024 4, 12/25/2022, 01/02/2021, Additional history exists Pneumococcal Vaccine: 50+ Years Completed 08/04/2017, 04/08/2014 Pneumococcal Vaccine: Peds (0 to 5 Years) and At-Risk Patients (6 to 49 Years) Discontinued 08/04/2017, 04/08/2014 Colorectal Cancer Screening: Colonoscopy Discontinued 02/21/2020 Hepatitis B Vaccine Aged Out No longe r eligible based on patient's age to complete this topic Insurance [facility] Medicare [facility] Medicare Care Teams Beef Selector Relationship Specialty Start Date End Date Bj White MD [address] [phone] PCP - General Family Medicine 03/15/21
--- OUTSIDE RECORDS SUMMARY | 2024-12-24 14:23 | XMS_ITS | Encounter Summary ---
Author Organization [facility] Address [address] [place] [address] Care Team Providers Care Inspection Manager Name Role Phone Bj White MD Primary Care Provider [phone] Encounter Details Date Type Department Care Team (Late st Contact Info) Description 12/08/2020 Erroneous Encounter [facility] CONVERSION DEPT 74 [place] [phone] ProviderYoana MD Social History Tobacco Use Types Packs/Day Years [...] AM EDT Office [place] [facility] [address] Agapito Gallego MD [address] [place] [address] 03/05/2025 11:30 AM EST Office Visit [facility] Urology [place] [address] Joe Harman MD [address] [place] [address] 03/10/2025 10:50 AM EST Office Visit [facility] Rheumatology [place] [address] [facility] [address] [place] [address] Neal Qiu MD [address] [address] documented as of this encounter Visit Diagnoses Not on filedocumented in this encounter Care Teams Inspection Manager Relationship Specialty Start Date End Date Bj White MD 3640 [facility] [address] [place] [address] PCP - General Family Medicine 10/26/22 documented as of this encounter
--- OUTSIDE RECORDS SUMMARY | 2024-12-24 14:23 | XMS_ITS | Encounter Summary ---
Author Organization [facility] Address [address] [place] [address] Phone Care Team Providers Care Steel Barrel Reamer Name Role Phone Janice Mcgowan MD Unavailable [phone] Jeremie Dias MD Unavailable Unareal pang Pcp, Unknown Primary Care Provider UnavailBj Boothe MD Primary Care Provider Encounter Details Date Type Department Care Team (Late st Contact Info) Description 07/15/2021 Procedure Pass [facility] Cardiac US [address] [place] [address] Social History Tobacco Use Types Packs/Day Years [...] Description 01/29/2025 3:00 PM EDT Office Visit [facility] [address] [facility] 10th [place] [address] Jay Zaidi MD [address] [place] [address]--[place] [address] [email or web address] documented as of this encounter Visit Diagnoses Not on filedocumented in this encounter Care Teams Steel Barrel Reamer Relationship Specialty Start Date End Date Pcp, Unknown PCP - General 06/25/21 08/04/21 Bj White MD 3640 [facility] 207 [place] [address] PCP - General Family Medicine 08/05/21 Janice Mcgowan MD [address] [place] [address] Gastroenterology 04/09/20 Jeremie Dias MD [address] [place] [address] Compo Caster Cardiology 03/29/21 documented as of this encounter Additional Source Comments The information contained in this document represents components of the legal health record. It is not the complete legal health record.[facility]
--- OUTSIDE RECORDS SUMMARY | 2024-12-24 14:24 | XMS_ITS | Clinical Summary ---
Author Organization [facility] Address [address] [place] [address] Phone Care Team Providers Care Metal Sander Name Role Phone Bj White MD Primary Care Provider [phone] Allergies Active Allergy Reactions Criticality Noted Date Comments Atenolol Dizziness,Nausea Only 04/25/2024 Benzonatate Nausea And Vomiting Medium 04/25/2024 Cefuroxime Axetil Nausea Only 02/28/2024 Cephalexin Other,Unknown 04/26/2013 Metoprolol Insomnia 04/25/2024 Ramelteon Unknown 04/25/2024 Medications eszopiclone (LUNESTA) 2 mg tablet Take 1 tablet (2 mg total) by mouth at bedtime. Take immediately before bedtime Active potassium citrate (UROCIT-K) 10 mEq (1,080 mg) CR tablet Take 1 tablet (10 mEq total) by mouth 1 (one) time each day. Do not crush, chew, or split. Active omeprazole OTC (PriLOSEC OTC) 20 mg EC tablet Take 1 tablet (20 mg total) by mouth 1 (one) time each day. Do not crush, chew, or split. Active finasteride (PROSCAR) 5 mg tablet Take 1 tablet (5 mg total) by mouth 1 (one) time each day. Do not crush, chew, or split. Active pramipexole (MIRAPEX) 0.125 mg tablet Take 1 tablet (0.125 mg total) by mouth 1 (one) time each day. Active bisoprolol-hydroCHL OROthiazide (ZIAC) 2.5-6.25 mg per tablet Take 1 tablet by mouth 1 (one) time each day. Active tadalafiL (CIALIS) 5 mg tablet Take 1 tablet (5 mg total) by mouth 1 (one) time each day. Active gabapentin (NEURONTIN) 300 mg capsule Take 1 capsule (300 mg total) by mouth 1 (one) time each day. Active gabapentin (NEURONTIN) 100 mg capsule Take 1 capsule (100 mg total) by mouth at bedtime. Active budesonide DR (ENTOCORT EC) 3 mg 24 hr capsuleIndications: Crohn's disease of colon with other complication (CMS/HCC V24, CMS/HCC V28) TAKE 3 CAPSULES (9 MG TOTAL) BY MOUTH 1 (ONE) TIME EACH DAY IN THE MORNING. TAKE 3 CAPSULES (9MG) DAILY FOR 4 WEEKS THEN DECREASE TO 2 CAPSULES (6MG) FOR 2 WEEKS THEN 1 CAPSULE (3MG) FOR 2 WEEKS. PLEASE CALL OFFICE FOR UPDATE IF STARTING MEDICATION 90 each 1 024 Active cyanocobalamin (VITAMIN B-12) 1,000 mcg/mL injectionIndication s:B12 deficiency INJECT 1 ML SUBCUTANEOUSLY ONCE A MONTH 3 mL 3 025 Active predniSONE (DELTASONE) 10 mg tablet TAKE 1 TABLET BY MOUTH EVERY DAY 90 tablet 1 025 Active cholestyramine (QUESTRAN) 4 gram packetIndications:C rohn's disease of colon with complication (CMS/HCC V24, CMS/[facility] V28) TAKE 1 PACKET DISSOLVED IN WATER ONCE A DAY 90 packet 2 025 Active omeprazole (PriLOSEC) [address] capsuleIndications: GERD (gastroesophageal reflux disease) TAKE 1 CAPSULE BY MOUTH EVERY DAY 90 capsule 1 025 Active risankizumab-rzaa (Skyrizi) injectionIndication s:Crohn's disease with complication, unspecified gastrointestinal tract location (CMS/HCC V24, CMS/HCC V28) 2.4 mL (360 mg total) by subcutaneous (via wearable injector) route once every eight weeks Administer as directed into subcutaneous tissue of thigh or abdomen with on body injector. 2.4 mL 3 025 2024 Active Problems Problem Noted Date Diagnosed Date Crohn's colitis (CMS/HCC V24, CMS/[facility] V28) 02/27 Encounters Date Type Department Care Team Description 11/20/2024 Telephone Gastroenterology - [address] [place] [address] Janice Mcgowan MD from Last 3 Months Surgical History Surgery Date Site/Laterality Comments COLONOSCOPY W/ BIOPSIES 01/18/2024 s/p ileocecetomy, stricture at anastamosis, active ileitis on bx, nl colon mucosa MITRAL VALVE REPLACEMENT SMALL INTESTINE SURGERY 04/24/1977 - 04/23/1978 ileocectomy COLONOSCOPY W/ BIOPSIES 06/26/2020 one colon polyp, anastamotic stricture, ileal biopsies reactive changes COLONOSCOPY W/ BIOPSIES 08/23/2017 Zeroogian- nl colon bx APPENDECTOMY Medical History Medical History Date Comments Crohn's disease of small intestine ([facility] V24, [facility] V28) 1970 History of diverticulitis CKD (chronic kidney disease) CAD (coronary artery disease) HTN (hypertension) Hypocupremia [place] [facility] [place] Family History Medical History Relation Name Comments Stroke Father cirilo appendix cancer Mother Relation Name Status Comments Father cirilo Mother Social History Tobacco Use Types Packs/Day Years Used Date Smoking Tobacco: Never Smokeless Tobacco: Never Alcohol Use Standard Drinks/Week Comments Never 0 (1 standard drink = 0.6 oz pur e alcohol) Sex and Gender Information Value Date Recorded Sex Assigned at Not on file Legal Sex Male 10:43 AM EST Gender Identity Not on file Sexual Orientation Not on file Obstetrics History Last Filed Vital Signs Vital Sign Reading Time Taken Comments Blood Pressure 116/65 04/25/2024 1:10 PM EST Pulse 62 04/25/2024 1:10 PM EST Temperature 36.9 C (98.4 F) 04/25/2024 1:10 PM EST Respiratory Rate 18 04/25/2024 1:10 PM EST Oxygen Saturation 97% 04/25/2024 1:10 PM EST Inhaled Oxygen Concentration - - Weight 84.8 kg (187 lb) 06/25/2024 10:37 AM EST Height 177.8 cm (5' 10 ) 06/25/2024 10:37 AM EST Body Mass Index 26.83 06/25/2024 10:37 AM EST Plan of Treatment Upcoming Encounters Date Type Department Care Team (Late st Contact Info) Description 03/11/2025 3:00 PM EST Office Visit Gastroenterology - [address] [place] [address] Janice Mcgowan MD [address] [place] [phone] Health Maintenance Due Date Last Done Comments Cholesterol Screening (Lipid Panel) 02/07/2024 05/11/2018 Hepatitis C Screening 02/07/2024 Medicare Annual Wellness Visit 02/07/2024 Social Influencers of Health Screening 02/07/2024 Depression Screening 04/24/2024 COVID-19 Vaccine (8 - Moderna risk season) 2024 01/09/2024, 01/07/2023, 01/08/2022, Additional history exists Influenza Vaccine (#1) 2024 , 12/25/2022, 01/10/2022, Additional history exists Falls Risk Assessment 04/25/2025 04/25/2024 Hypertension/CHF/CAD Annual BMP Blood Test 05/24/2025 05/24/2024, 06/25/2021, 05/11/2018 DTaP,Tdap,and Td Vaccines (3 - Td or Tdap) 03/02/2028 03/02/2018, 03/27/2008 Zoster Vaccines Completed 10/20/2020, 05/03/2020 Pneumococcal Vaccine: 50+ Years Completed 12/22/2021, 08/04/2017, 04/08/2014 RSV Immunization Adult Patients Completed 12/16/2022 Colorectal Cancer Screening: Colonoscopy Discontinued 06/26/2024 HIB Vaccines Aged Out No longer eligi ble based on patient's age to complete this topic HPV Vaccines Aged Out No longer eligi ble based on patient's age to complete this topic Hepatitis A Vaccines Aged Out No long er eligible based on patient's age to complete this topic Hepatitis B Vaccines Aged Out No long er eligible based on patient's age to complete this topic IPV Vaccines Aged Out No longer eligi ble based on patient's age to complete this topic MMR Vaccines Aged Out No longer eligi ble based on patient's age to complete this topic Meningococcal ACWY Vaccine Aged Out N o longer eligible based on patient's age to complete this topic Meningococcal B Vaccine Aged Out No l onger eligible based on patient's age to complete this topic RSV Immunization Patients Under 20 months Aged Out No longer eligible based on patient's age to complete this topic Varicella Vaccines Aged Out No longer eligible based on patient's age to complete this topic Procedures Procedure Name Priority Date/Time Associated Diagnosis Comments EXTERNAL COLONOSCOPY REPORT Routine 06/26/2024 8:27 AM EST COMPREHENSIVE METABOLIC PANEL Routine 05/24/2024 3:28 PM EST Crohn's disease with complication, unspecified gastrointestinal tract location ([facility] V24, [facility] V28) from Last 3 Months or Most Recently Relevant to Health Maintenance Results * External Colonoscopy Report (06/26/2024 8:27 AM EST) Anatomical Region Laterality Modality Endoscopy us Historical Provider GI~PROCEDURE ORDERABLES F inal Result * (ABNORMAL) Comprehensive metabolic panel (05/24/2024 3:28 PM EST) Sodium 141 133 - 145 mmol/L LAB CHEMISTRY METHOD 05/24/2024 4:54 PM [facility] Potassium 4.2 3.5 - 5.5 mmol/L LAB CHEMISTRY METHOD 05/24/2024 4:54 PM [facility] Chloride 106 96 - 110 mmol/L LAB CHEMISTRY METHOD 05/24/2024 4:54 PM [facility] CO2 31 21 - 32 mmol/L LAB CHEMISTRY METHOD 05/24/2024 4:54 PM [facility] Anion Gap 4 3 - 11 LAB CHEMISTRY METHOD 05/24/2024 4:54 PM [facility] Glucose 93 70 - 100 mg/dL LAB CHEMISTRY METHOD 05/24/2024 4:54 PM [facility] BUN 26(H) 5 - 25 mg/dL LAB CHEMISTRY METHOD 05/24/2024 4:54 PM [facility] Creatinine 1.54(H) 0.70 - 1.30 mg/dL LAB CHEMISTRY METHOD 05/24/2024 4:54 PM [facility] eGFR 46(L) >=60 mL/min/1. 73m2 LAB CHEMISTRY METHOD 05/24/2024 4:54 PM [facility] Comment:Calculation based on the Chronic Kidney Disease Epidemiology Collaboration (CKD-EPI) equation refit without adjustment for race. BUN/Creatinine Ratio 16.9 LAB CHEMISTRY METHOD 05/24/2024 4:54 PM [facility] Calcium 8.9 8.5 - 10.5 mg/dL LAB CHEMISTRY METHOD 05/24/2024 4:54 PM [facility] AST (SGOT) 18 10 - 42 unit/L LAB CHEMISTRY METHOD 05/24/2024 4:54 PM [facility] ALT (SGPT) 22 10 - 60 unit/L LAB CHEMISTRY METHOD 05/24/2024 4:54 PM [facility] Alkaline Phosphatase 73 42 - 121 unit/L LAB CHEMISTRY METHOD 05/24/2024 4:54 PM [facility] Total Protein 6.2 6.0 - 8.0 g/dL LAB CHEMISTRY METHOD 05/24/2024 4:54 PM [facility] Albumin 3.1(L) 3.2 - 5.0 g/dL LAB CHEMISTRY METHOD 05/24/2024 4:54 PM [facility] Total Bilirubin 0.3 0.0 - 1.4 mg/dL LAB CHEMISTRY METHOD 05/24/2024 4:54 PM [facility] Blood Venous blood specimen / Unknown Venipuncture / Unknown 05/24/2024 3:28 PM EST 05/24/2024 4:11 PM EST us Janice Mcgowan MD LAB BLOOD ORDERABLES Final Res ult [facility] [address] [place] [address], [place] [phone] from Last 3 Months or Most Recently Relevant to Health Maintenance [place] [address] [place] [id number] MEDICARE [facility] Care Teams Metal Sander Relationship Specialty Start Date End Date Bj White MD [address] [phone] PCP - General Family Medicine 02/21/24
--- OUTSIDE RECORDS SUMMARY | 2024-12-24 14:24 | XMS_ITS | Encounter Summary ---
Author Organization [facility] Address [address] [place] [address] Care Team Providers Care Architecture Faculty Member Name Role Phone Bj White MD Primary Care Provider [phone] Encounter Details Date Type Department Care Team (Late st Contact Info) Description 09/17/2024 Scanned Document [facility] [address] [phone] Matt Srinivasan MD [address] [place] [phone] Social History Tobacco Use Types Packs/Day Years Used Date Smoking Tobacco: Never Passive Smoke Exposure: Never Smokeless Tobacco: Never Sex and Gender Information Value [...] 10:00 AM EDT [facility] [address] [place] [address] [phone] Agapito Gallego MD [address] [place] [phone] 03/05/2025 11:30 AM EST Office Visit [facility] [place] [address] [place] [address] Joe Harman MD [address] [place] [address] 03/10/2025 10:50 AM EST Office Visit [facility] [place] [address] [facility] [address] [place] [address] Neal Qiu MD [address] [phone] documented as of this encounter Goals Goal Patient Goal Type Associated Problems Recent Progress Patient-Stated? Author PT goals Physical Therapy On track( 024 5:16 PM EDT) Mathew Mcmullen, PT Note: STG 1) Patient to have full extension of Knee to regain normal gait in 2 weeks. 3) Patient able to perform SLR with good quad control in 2 weeks. 4) Patient able to exhibit good single leg stance without pain in 2 weeks. LTG 1) Patient to have knee extension full 120 to perform stairs without pain in 4 weeks. 2) Pt will report pain less than 1/10 in 4 weeks 3) Patient able to go up/down stairs with reciprocal pattern without pain in 4 weeks. documented as of this encounter Visit Diagnoses Not on filedocumented in this encounter Care Teams Architecture Faculty Member Relationship Specialty Start Date End Date Bj White MD [address] [facility] [address] [place] [address] PCP - General Family Medicine 10/26/22 documented as of this encounter
--- OUTSIDE RECORDS SUMMARY | 2024-12-24 14:24 | XMS_ITS | Clinical Summary ---
Author Organization [facility] Address [address] [place] [address] Phone Care Team Providers Care Packaging Associate Name Role Phone Janice Mcgowan MD Unavailable [phone] Jeremie Dias MD Unavailable Neshavai Bj Martin MD Primary Care Provider [phone] Allergies Active Allergy Reactions Criticality Noted Date Comments Atenolol Dizziness,Nausea And Vomiting,Nausea Only Low 10/10/2023 Benzonatate Nausea And Vomiting,Vomiting Medium 10/10/2023 Other Reaction(s): Finding of vomiting Cefuroxime Hives 10/14/2010 Cephalexin Other (See Comments) 04/26/2013 Unable to recall rxn Pregabalin Nausea and/or Vomiting 09/03/2024 Metoprolol Insomnia Low 06/03/2022 Phs Other Free Text-See Phs Viewer 04/04/2012 dust,mold,trees Ramelteon Other (See Comments),Unknown Medium 04/26/2013 Other Reaction(s): Unknown Medications adalimumab (HUMIRA) 40 mg/0.8 mL pen kit Inject 40 mg under the skin every 14 (fourteen) days. Active tamsulosin (FLOMAX) 0.4 mg Cap Take 0.4 mg by mouth daily. Active finasteride (PROSCAR) 5 mg tablet Take 5 mg by mouth daily. Active triamcinolone (NASACORT AQ) 55 mcg/actuation nasal inhaler 1 spray by Nasal route daily. Active pregabalin (LYRICA) 75 MG capsule Take 75 mg by mouth 2 (two) times a day. 05/10/19 22 Active cholecalciferol, vitamin D3, 25 mcg (1,000 unit) capsule Take 1 capsule by mouth. Active cholestyramine (QUESTRAN) 4 gram packet Questran 4 gram oral powder QD 03/01/20 21 Active cyanocobalamin (VITAMIN B-12) 1,000 mcg/mL injection 1,000 mg every 30 (thirty) days. Active RESTASIS 0.05 % suspension 04/29/19 22 Active diclofenac sodium (VOLTAREN) 1 % Gel 4 g. Active lidocaine 5 % ointment daily. feet 02/11/20 21 Active loperamide (IMODIUM A-D) 2 mg tablet daily. Active loteprednol (LOTEMAX) 0.5 % Oint Apply to eye. 03/01/20 21 Active methylcellulose (CITRUCEL) 500 mg Tab Citrucel 500 mg tablet Take 1 tablet twice a day by oral route. Active mometasone (NASONEX) 50 mcg/actuation nasal spray mometasone 50 mcg/actuation nasal spray Active acetaminophen (TYLENOL) 325 mg tablet Take 1-2 tablets (325-650 mg total) by mouth every 6 (six) hours as needed for mild pain. 0 07/28/19 22 Active amiodarone (PACERONE) 200 MG tablet Take 1 tablet (200 mg total) by mouth daily. 30 tablet 07/29/19 22 Active aspirin 325 MG tablet Take 1 tablet (325 mg total) by mouth daily. 07/29/19 22 Active Additional Information Patient not taking.Reported on 09/03/2024 metoprolol succinate (TOPROL-XL) 25 MG 24 hr tablet Take 1 tablet (25 mg total) by mouth daily. 30 tablet 1 07/28/19 22 Active Additional Information Patient not taking.Reported on 09/03/2024 metoprolol succinate (TOPROL-XL) 25 MG 24 hr tablet Take 1.5 tablets (37.5 mg total) by mouth nightly at bedtime. 60 tablet 1 07/28/19 22 Active Additional Information Patient not taking.Reported on 09/03/2024 traMADoL (ULTRAM) 50 mg tablet Take 0.5 tablets (25 mg total) by mouth every 6 (six) hours as needed. 10 tablet 07/28/19 22 Active Additional Information Patient not taking.Reported on 09/03/2024 acetaminophen-co deine (TYLENOL #3) 300-30 mg per tablet Take 0.5 tablets every 8 hours by oral route as needed for 30 days, for spondylitis. 06/18/19 21 Active acetaminophen-co deine (TYLENOL #2) 300-15 mg per tablet Take by mouth. 10/10/19 24 Active alfuzosin (UROXATRAL) 10 mg 24 hr tablet Take 10 mg by mouth daily. 08/06/19 25 Active alpha lipoic acid 200 mg Cap as directed Orally Active alpha lipoic acid 300 mg Cap Take 300 mg by mouth daily. Active amLODIPine (NORVASC) 2.5 MG tablet TAKE 1 TABLET BY MOUTH EVERY DAY IN THE EVENING FOR 30 DAYS Active amoxicillin-clav ulanate (AUGMENTIN) 875-125 mg per tablet amoxicillin 875 mg-potassium clavulanate 125 mg tablet Active azithromycin (ZITHROMAX) 500 MG tablet Take 500 mg by mouth. 10/10/19 24 Active biotin 10 mg Tab daily. Act trever bisoprolol (ZEBETA) 5 MG tablet Take 0.5 tablets by mouth 2 (two) times a day. 04/24/19 23 Active bisoprolol-hydro CHLOROthiazide (ZIAC) 2.5-6.25 mg per tablet Take 1 tablet by mouth. Active budesonide (PULMICORT) 0.5 mg/2 mL nebulizer solution USE 1 VIAL PER NOSTRIL NASAL RINSE TWICE DAILY NEEDED 10/10/19 24 Active budesonide (ENTOCORT EC) 3 mg 24 hr capsule Take 9 mg by mouth. 04/08/20 24 Active celecoxib (CELEBREX) 200 MG capsule 1 capsule with food Orally Once a day Active cholestyramine, bulk, Powd as directed. Active clarithromycin (BIAXIN) 500 MG tablet clarithromycin 500 mg tablet Active clotrimazole-bet amethasone (LOTRISONE) cream USE TOPICALLY TWO TIMES DAILY ON NAVEL AREA, DO NOT USE FOR MORE THAN 2 WEEKS AT A TIME. Active colesevelam (WELCHOL) 625 mg tablet colesevelam 625 mg tablet Active desvenlafaxine succinate (PRISTIQ) 25 mg 24 hr tablet Take 1 tablet by mouth. 07/18/19 24 Active dicyclomine (BENTYL) 10 MG capsule TAKE 1 CAPSULE (10 MG TOTAL) BY MOUTH 2 (TWO) TIMES A DAY IF NEEDED (ABDOMINAL DISCOMFORT). 04/08/20 24 Active DULoxetine (CYMBALTA) 30 MG capsule TAKE 1 CAPSULE EVERY DAY BY ORAL ROUTE FOR 14 DAYS. 03/01/20 Active eszopiclone (LUNESTA) 2 MG Tab Take 1 tablet every day by oral route at bedtime. 10/10/19 24 Active eszopiclone (LUNESTA) 3 mg tablet 1 tablet immediately before bedtime Orally Once a day Active fexofenadine (ALEXUS) 180 MG tablet 180 mg by oral route. Active gabapentin (NEURONTIN) 100 MG capsule PLEASE SEE ATTACHED FOR DETAILED DIRECTIONS 10/10/19 Active gabapentin (NEURONTIN) 300 MG capsule Take 1 tablet by mouth nightly at bedtime. Active gabapentin (NEURONTIN) 600 MG tablet Take 600 mg by mouth 3 (three) times a day. Active inFLIXimab (REMICADE) 100 mg injection BIMONTHY Active ipratropium (ATROVENT) 21 mcg (0.03 %) nasal spray 1 spray daily. 01/30/20 Active levoFLOXacin (LEVAQUIN) 750 MG tablet Active losartan (COZAAR) 25 MG tablet daily. Active losartan (COZAAR) 50 MG tablet losartan 50 mg tablet TAKE 1 TABLET BY MOUTH EVERY DAY 12/12/19 Active meloxicam (MOBIC) 7.5 MG tablet Active methocarbamoL (ROBAXIN) 750 MG tablet Take 1 tablet by mouth 3 (three) times a day. 06/29/19 25 Active mupirocin (BACTROBAN) 2 % ointment mupirocin 2 % topical ointment Apply 1 application as needed by topical route. Active nortriptyline (PAMELOR) 10 MG capsule Take 1 capsule twice a day by oral route. Active omeprazole (PRILOSEC) 20 MG capsule Take 1 tablet by mouth daily. 05/14/19 25 Active MIEBO, PF, 100 % Drop instill 1 drop into both eyes 4 times daily 07/14/19 25 Active potassium citrate (UROCIT-K) 15 mEq SR tablet Take 1 tablet every day by oral route for 90 days. 10/10/19 24 Active potassium citrate (UROCIT-K) 10 mEq SR tablet Take 10 mEq by mouth. Active pramipexole (MIRAPEX) 0.125 MG tablet TAKE 2 TABLETS BY MOUTH 1 HOUR PRIOR TO BEDTIME 10/10/19 24 Active pramipexole (MIRAPEX) 0.25 MG tablet TAKE 2 TABLET BY MOUTH 2 TIMES A DAY,MAY TAKE ADDITIONAL TABLE AT NIGHT NEEDED 10/16/19 24 Active predniSONE (DELTASONE) 10 MG tablet TAKE 4 TABLETS BY MOUTH EVERY DAY FOR 2 DAYS THEN DECREASE BY 1 TABLET EVERY 2 HOURS Active SKYRIZI 360 mg/2.4 mL (150 mg/mL) subcutaneous on body injector 04/24/19 25 Active risankizumab-rza a (SKYRIZI) 60 mg/mL Soln injection 02/26/20 24 Active salicylic acid 27.5 % LiqF salicylic acid 27.5 % topical film-forming liquid PLEASE SEE ATTACHED FOR DETAILED DIRECTIONS Active sildenafiL (VIAGRA) 50 mg tablet Take 50 mg by mouth. Active tacrolimus (PROTOPIC) 0.1 % ointment tacrolimus 0.1 % topical ointment APPLY TO DERMATITIS TWICE DAILY NEEDED 03/01/20 21 Active tadalafiL (CIALIS) 5 MG tablet Take 1 tablet by mouth every morning. 11/23/19 23 Active tadalafiL (CIALIS) 2.5 mg Tab Take 2.5 mg by mouth daily as needed. Active tadalafiL (CIALIS) 10 MG tablet daily. 02/03/20 21 Active vardenafiL (LEVITRA) 10 MG tablet Active TYRVAYA 0.03 mg/spray nasal spray SPRAY INTO EACH NOSTRIL TWOTIMES A DAY Active adalimumab (HUMIRA) 40 mg/0.4 mL pen kit citrate free Inject under the skin. 02/02/20 21 Active aspirin 325 MG tablet daily. Active cholecalciferol (VITAMIN D3) 2,000 unit tablet Take 2,000 Units by mouth daily. Active pregabalin (LYRICA) 50 MG capsule TWO TIMES DAILY Acti ve pregabalin (LYRICA) 25 MG capsule 1 capsule. Active pregabalin (LYRICA) 150 MG capsule pregabalin 150 mg capsule Active erythromycin (ROMYCIN) ophthalmic ointment Place 0.5 inches into each eye 3 (three) times a day. 3.5 g 2 09/04/19 25 Active Active Problems Problem Noted Date Diagnosed Date Mitral incompetence 07/12/2021 Crohn's disease 04/04/2012 Overview (06/14/2014): Crohn's disease Chronic sinusitis 04/04/2012 Overview (06/14/2014): Chronic rhinosinusitis Vertigo 03/29/2012 Overview (06/14/2014): Vertigo Encounters Date Type Department Care Team Description 10/07/2024 Telephone [facility] [address] [facility] [address] [place] [id number] Millie Holt MD from Last 3 Months Social History Tobacco Use Types Packs/Day Years Used Date Smoking Tobacco: Never Smokeless Tobacco: Never Tobacco Cessation:Counseling Given: Not Answered Alcohol Use Standard Drinks/Week Comments Not Currently 0 (1 standard drink = 0.6 oz pur e alcohol) Education Answer Date Recorded Are you interested in more education? Not on kevin e 08/20/2022 Are you concerned about learning? Not on file 08/20/2022 No 08/20/2022 No 08/20/2022 Food Answer Date Recorded Within the past 6 months we worried whether our food would run out before we got money to buy more. Never True 09/06/2024 Within the past 6 months the food we bought just didn't last and we didn't have enough money to get more. Never True Residential Stability Answer Date Recor ded What is your housing situation today? I have chidi sing 09/06/2024 How many times have you move d in the past 12 months? Zero (I did not move) 09/06/2024 Paying for Meds Answer Date Recorded Do you have trouble paying for medicines? No 09/06/2024 Paying Utility Bills Answer Date Record ed Do you have trouble paying your heating or elect ricity bill? No 09/06/2024 Transportation Answer Date Recorded Has the lack of transportati on kept you from medical appointments or from getting medications? No 09/06/2024 Digital Access Answer Date Recorded No 09/06/2024 Yes 09/06/2024 Do you have reliable internet access at home? Ye s 09/06/2024 Do you have a device (e.g., phone, tablet, computer) with a working camera? Yes 09/06/2024 Intimate Partner Violence Answer Date R ecorded Are you denied basic needs s uch as food, clothing, or medical care? No 09/06/2024 In the past 12 months have y ou been in a relationship with a person who hurts, threatens, or tries to control you? No 09/06/2024 Are you denied basic needs s uch as food, clothing, or medical care? No 09/06/2024 In the past 12 months have y ou been in a relationship with a person who hurts, threatens, or tries to control you? No 09/06/2024 Sex and Gender Information Value Date Recorded Sex Assigned at Male 02/13/2020 11:42 AM EDT Legal Sex Male 5:42 PM EST Gender Identity Male 02/13/2020 11:42 AM EDT Sexual Orientation Straight 02/13/2020 11 :42 AM EDT Last Filed Vital Signs Vital Sign Reading Time Taken Comments Blood Pressure 141/69 09/06/2024 12:30 PM EDT Pulse 54 09/06/2024 12:30 PM EDT Temperature 36.6 C (97.8 F) 09/06/2024 12:30 PM EDT Respiratory Rate 16 09/06/2024 12:30 PM EDT Oxygen Saturation 95% 09/06/2024 12:30 PM EDT Inhaled Oxygen Concentration 40% 07/17/2021 1 2:00 PM EDT Weight 83.9 kg (185 lb) 09/06/2024 12:30 PM EDT Height 177.8 cm (5' 10 ) 09/06/2024 12:30 PM EDT Body Mass Index 26.54 09/06/2024 12:30 PM EDT Plan of Treatment Upcoming Encounters Date Type Department Care Team (Late st Contact Info) Description 01/29/2025 3:00 PM EDT Office Visit [facility] [address] [facility] [address] [place] [address] Jay Zaidi MD [address] [place] [address]--[place] [address] [email or web address] Health Maintenance Due Date Last Done Comments DEPRESSION SCREENING 1959 HEPATITIS C SCREENING 1965 CREATININE LEVEL 07/27/2022 07/27/2021, 07/2021, 07/25/2021, Additional history exists POTASSIUM LEVEL 07/27/2022 07/27/2021, 04/07/2021, 07/25/2021, Additional history exists LIPID PANEL 05/11/2023 05/11/2018 COVID-19 VACCINE (8 - Moderna risk season) 2024 01/09/2024, 01/07/2023, 01/07/2023, Additional history exists INFLUENZA VACCINE (#1) 2024 , 12/25/2022, 01/10/2022, Additional history exists Adult Td,Tdap Booster 03/02/2028 03/02/2018, 008 ZOSTER VACCINES Completed 10/20/2020, 05/03/2020 PNEUMOCOCCAL VACCINES (50+ years) Completed 12/22/2021, 08/04/2017, 04/08/2014 RSV VACCINE Completed 12/16/2022, 12/16/2022 SMOKING STATUS SCREENING (Once After 26 Yrs) Completed 09/03/2024 HEPATITIS A VACCINES Aged Out No long er eligible based on patient's age to complete this topic HIB VACCINES Aged Out No longer eligi ble based on patient's age to complete this topic MENINGOCOCCAL VACCINES (ACWY) Aged Out No longer eligible based on patient's age to complete this topic MENINGOCOCCAL VACCINES (B) Aged Out N o longer eligible based on patient's age to complete this topic Medical Devices Implanted Type Area Electric Cutter Operator Device Identifier Shelf Expiration Date Model / Serial / Lot Staple Staple Abdomen Description:Internal metal s taple that has shown up on x-rays from prev surgery per pt Dental Implants Tooth Lens Bilateral: Eye Mesh Bilateral: Groin Ring Annuloplasty 41.2mmx34.8 Sz 36 [employer] Eligoy Band Silicone Rubber Polyester Cover Mitral - [id number] Implanted:Qty: 1 on 07/12/2021 by Gigi Abdullahi MD at [facility] [employer] 11/02/2022 [id number] / [id number] / Procedures Procedure Name Priority Date/Time Associated Diagnosis Comments BASIC METABOLIC PANEL Routine 07/27/2021 4:15 AM EDT LIPID PANEL Routine 05/11/2018 2:17 PM EST Hereditary and idiopathic peripheral neuropathy from Last 3 Months or Most Recently Relevant to Health Maintenance Results * (ABNORMAL) Basic metabolic panel (07/27/2021 4:15 AM EDT) SODIUM 139 135 - 145 mmol/L [facility] POTASSIUM 4.2 3.4 - 5.0 mmol/L [facility] CHLORIDE 107 98 - 108 mmol/L [facility] CO2 21(L) 23 - 32 mmol/L [facility] BUN 27(H) 8 - 25 mg/dL [facility] CREATININE 1.76(H) 0.60 - 1.50 mg/dL [facility] GLUCOSE 94 70 - 110 mg/dL [facility] CALCIUM 8.8 8.5 - 10.5 mg/dL [facility] EGFR 40(L) >59 mL/min/1. 73m2 [facility] Comment:Estimated glomerular filtration rate calculated using the CKD-EPI refit equation. ANION GAP 11 3 - 17 mmol/L [facility] Blood 07/27/2021 4:15 AM EDT 07/27/2021 5:27 AM EDT Ansley Clark PA-C LAB BLOOD ORDERABL ES Final Result [facility] [address] [place] [address] * (ABNORMAL) Lipid panel (05/11/2018 2:17 PM EST) HDL 70 35 - 100 mg/dL [facility] CHOLESTEROL 219(H) <200 mg/dL [facility] TRIGLYCERIDES 318(H) 40 - 150 mg/dL [facility] LDL 85 50 - 129 mg/dL [facility] CARDIAC RISK RATIO 3.1 0.0 - 5.0 [facility] NON-HDL CHOLESTEROL 149 mg/dL [facility] Comment:NCEP ATP III guideli ann suggest a non-HDL cholesterol goal 30 mg/dl higher than the patient-specific LDL goal. 05/11/2018 2:17 PM EST 05/11/2018 5:34 PM EST us Bandar Villalba MD LAB BLOOD ORDERABLES Final Result [address] [address] from Last 3 Months or Most Recently Relevant to Health Maintenance Insurance MEDICARE PART A & B [facility] MEDICARE SUPPLEMENT MEDICARE PART A & B [employer] MEDICARE SUPPLEMENT MEDICARE PART A & B [employer] [place] [address] MEDICARE PART A & B [facility] [place] [address] MEDICARE PART A & B [facility] EXTENSION MEDICARE SUPPLEMENT MEDICARE PART A & B Member Subscriber Plan / Payer ( fective 2016-Present) Name:Michael Hollidayelvie To Member ID:[id number] Relation to Subscriber:Self Name:Michael Hollidayelvie To Subscriber ID:[id number] Payer ID:[id number] Group ID:Not on file Type:Medicare Address: [employer] [facility] [address] [place] [id number] [place] [address] EXTENSION MEDICARE SUPPLEMENT MEDICARE PART A & B [facility] MEDICARE SUPPLEMENT [place] MEDICARE PART A & B [facility] EXTENSION MEDICARE SUPPLEMENT MEDICARE PART A & B [facility] EXTENSION MEDICARE SUPPLEMENT Advance Directives For more information, please contact: [phone] (9AM - 5PM Geetha/[facility], Monday-Monday) Documents on File Type Date Recorded Patient Director Software Development Expl anation Healthcare Proxy 06/25/2021 10:36 AM * Full Code (Latest Code Status on File) Date Activated Date Inactivated Comments 07/12/2021 8:18 PM Question Answer Comments Code Status Confirmed With: Other (specify below ) Code Discussion Comments: OR Care Teams Packaging Associate Relationship Specialty Start Date End Date Bj White MD [address] [facility] [address] [place] [address] PCP - General Family Medicine 08/05/21 Janice Mcgowan MD [address] [address] Gastroenterology 04/09/20 Jeremie Dias MD [address] [place] [address] Assembler Erector Cardiology 03/29/21 Additional Source Comments The information contained in this document represents components of the legal health record. It is not the complete legal health record.[facility]
--- OUTSIDE RECORDS SUMMARY | 2024-12-24 14:24 | XMS_ITS | Encounter Summary ---
Author Organization [facility] Address [address] [place] [address] Phone Care Team Providers Care Director Service Name Role Phone Janice Mcgowan MD Unavailable [phone] Jeremie Dias MD Unavailable Neshavai Bj Martin MD Primary Care Provider [phone] Encounter Details Date Type Department Care Team (Late st Contact Info) Description 09/03/2024 Procedure Pass [facility] [address] [place] [address] Social History Tobacco Use Types Packs/Day Years [...] your housing situation today? I have chidi zarco 09/06/2024 How many times have you move [...] Date of Assessment Author No Risk Indicated 09/06/2024 12:32 PM EDT Shannon Bush RN * [place] Suicide Severity Rating Scale (Screener/Recent Self-Report) Question Answer Date of Assessment Author 1. Wish to be (Past 1 Month) No 09/06/2024 12:32 PM EDT Shannon Bush, TARIK 2. Non-Specific Active Suicidal Thoughts (Past 1 Month) No 09/06/2024 12:32 PM EDT Shannon Bush, TARIK 6. Suicidal Behavior (Lifetime) No 09/06/2024 12:32 PM EDT Dease, Shannon Vincent RN documented as of this encounter Plan of Treatment Upcoming Encounters Date Type Department Care Team (Late st Contact Info) Description 01/29/2025 3:00 PM EDT [facility] [place] [address] [place] [address] Jay Zaidi MD [address] [place] [address]--[place] [address] [email or web address] documented as of this encounter Visit Diagnoses Not on filedocumented in this encounter Care Teams Director Service Relationship Specialty Start Date End Date Bj White MD [address] [facility] [address] [place] [address] PCP - General Family Medicine 08/05/21 Janice Mcgowan MD [address] [address] Gastroenterology 04/09/20 Jeremie Dias MD [address] [place] [address] Loom Inspector Cardiology 03/29/21 documented as of this encounter Additional Source Comments The information contained in this document represents components of the legal health record. It is not the complete legal health record.[facility]
--- OUTSIDE RECORDS SUMMARY | 2024-12-24 14:24 | XMS_ITS | Encounter Summary ---
Author Organization [facility] Address [address] [place] [address] Care Team Providers Care Field Assembly Supervisor Name Role Phone Bj White MD Primary Care Provider [phone] Encounter Details Date Type Department Care Team (Late st Contact Info) Description 08/01/2024 Scanned Document [facility] [place] [address] [facility] [place] [phone] Jose A Brewer MD [address] [place] [id number] Social History Tobacco Use Types Packs/Day Years [...] 10:00 AM EDT [facility] [address] [place] [address] Agapito Gallego MD [address] [place] [address] 03/05/2025 11:30 AM EST Office Visit [facility] [place] [phone] Joe Harman MD [address] [place] [address] 03/10/2025 10:50 AM EST Office Visit [facility] [place] [address] [place] [address] [place] [address] Neal Qiu MD [address] [address] documented as of this encounter Goals Goal [...] on filedocumented in this encounter Care Teams Field Assembly Supervisor Relationship Specialty Start Date End Date Bj White MD [address] [facility] [address] [place] [address] PCP - General Family Medicine 10/26/22 documented as of this encounter
--- OUTSIDE RECORDS SUMMARY | 2024-12-24 14:24 | XMS_ITS | Clinical Summary ---
Author Organization [facility] Address [address] [place] [address] Care Team Providers Care Paramedic Rn Name Role Phone Bj White MD Primary Care Provider [phone] Allergies Active Allergy Reactions Criticality Noted Date Comments Atenolol GI Intolerance/Nause a/Vomiting,Nausea Only Low 10/10/2023 Benzonatate GI Intolerance/Nause a/Vomiting,Nausea And Vomiting Medium 10/10/2023 Cefuroxime Hives,Other (See Comments) Medium 1 Gabapentin Unknown/Patient and Family Unable to Define Medium 04/05/2013 Metoprolol Other (See Comments) Low 06/03/2022 Ramelteon Other (See Comments) ,Unknown/Patient and Family Unable to Define Medium 04/26/2013 Medications methocarbamol (ROBAXIN) 750 MG tabletIndications :Cervical disc disorder at C5-C6 level with radiculopathy Take 1 tablet (750 mg total) by mouth 3 (three) times a day. 90 tablet 06/29/19 25 Active Additional Information Patient not taking.Reported on 09/02/2024 eszopiclone (LUNESTA) 2 MG tablet Take 1 tablet (2 mg total) by mouth nightly. Take immediately before bedtime Active Potassium Citrate ER 15 MEQ (1620 MG) Tab CR Take 1 tablet by mouth daily. 10/10/19 24 Active OMEprazole (PriLOSEC) 20 MG capsule Take 1 tablet by mouth daily. 01/07/20 22 Active finasteride (PROSCAR) 5 MG tablet Take 1 tablet (5 mg total) by mouth daily. 10/10/19 24 Active pramipexole (miraPEx) 0.125 MG tablet Take 1 tablet (0.125 mg total) by mouth 3 (three) times a day. Active cholestyramine (QUESTRAN) 4 GM/DOSE powder Take by mouth 2 (two) times a day with meals. Add to liquid and stir until completely mixed. Active bisoprolol (ZEBeta) 5 MG tablet Take 2 mg by mouth daily. Active tadalafil (CIALIS) 2.5 MG tablet Take 1 tablet (2.5 mg total) by mouth daily as needed for erectile dysfunction. Active acetaminophen (TYLENOL) 80 MG chewable tablet Chew 1 tablet (80 mg total) 4 times daily (every 6 hours) as needed for mild pain. Active gabapentin (NEURONTIN) 600 MG tablet Take 1 tablet (600 mg total) by mouth 3 (three) times a day. Active SUPPLY DME MISCIndications:M etatarsalgia of both feet Custom Cushion Inserts Dx: Metatarsalgia Therafeet Address: [address] [place] [address] 1 each 07/31/19 25 Active risankizumab-rzaa (Skyrizi) 600 mg/10 mL iv injection Active alfuzosin (UROXATRAL) 10 MG 24 hr tabletIndications :Benign prostatic hyperplasia with lower urinary tract symptoms, symptom details unspecified Take 1 tablet (10 mg total) by mouth daily. 30 tablet 08/06/19 25 Active Additional Information Patient not taking.Reported on 09/02/2024 budesonide (PULMICORT) 0.5 mg/2 mL nebulizer solutionIndicatio ns:Chronic pansinusitis PLEASE MIX 2 ML VIAL INTO NASAL SOLUTION TWICE DAILY INSTRUCTED FOR 30 DAYS. J32.4 360 mL 1 09/03/19 25 Active acetaminophen-cod eine (TYLENOL #2) 300-15 MG per tablet Take by mouth. Pt takes half tab daily 10/10/19 24 Active Cholecalciferol 50 MCG (1999 UT) Tab Take 2,000 Units by mouth. Active clotrimazole-beta methasone (LOTRISONE) cream USE TOPICALLY TWO TIMES DAILY ON NAVEL AREA, DO NOT USE FOR MORE THAN 2 WEEKS AT A TIME. Active dicyclomine (BENTYL) 10 MG capsule TAKE 1 CAPSULE (10 MG TOTAL) BY MOUTH 2 (TWO) TIMES A DAY IF NEEDED (ABDOMINAL DISCOMFORT). 04/08/20 24 Active mupirocin (BACTROBAN) 2 % ointment As needed Active Perfluorohexyloct ane (Miebo) 1.338 GM/ML Solution instill 1 drop into both eyes 4 times daily 07/14/19 25 Active Tyrvaya 0.03 MG/ACT Solution SPRAY INTO EACH NOSTRIL TWOTIMES A DAY Active celeCOXIB (CeleBREX) 50 MG capsuleIndication s:Arthralgia of multiple sites,Osteoarthri tis involving multiple joints on both sides of body Take 2 capsules (100 mg total) by mouth 2 (two) times a day. 120 capsule 5 09/03/19 25 025 Active HYDROcodone-aceta minophen (NORCO) 5-325 mg per tabletIndications :Ganglion cyst of finger Take 1 tablet by mouth 4 times daily (every 6 hours) as needed for severe pain. Max Daily Amount: 4 tablets 10 tablet 09/18/19 25 Active celeCOXIB (CeleBREX) 100 MG capsuleIndication s:Arthralgia of multiple sites,Osteoarthri tis involving multiple joints on both sides of body Take 1 capsule (100 mg total) by mouth 2 (two) times a day. 60 capsule 5 09/19/19 25 025 Active Active Problems Problem Noted Date Diagnosed Date Benign prostatic hyperplasia 07/31/2024 Coronary artery disease 07/31/2024 Crohn disease of small intestine in remission Cyst of epididymis 07/31/2024 Diverticulitis 07/31/2024 Encounter for fitting and adjustment of hearing aid 07/31/2024 Gastroesophageal reflux disease 07/31/2024 Essential (primary) hypertension 07/31/2024 Neuropathy 07/31/2024 Erectile dysfunction 07/31/2024 Male erectile dysfunction, unspecified Scrotal mass 07/31/2024 Sensorineural hearing loss, bilateral 07/31/2024 Tinea corporis 07/31/2024 Left ventricular outflow tract obstruction 07/10 S/P MVR (mitral valve repair) 07/10/2024 Chronic pain disorder 05/27/2024 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 Mitral valve insufficiency 05/18/2021 Chronic nasopharyngitis 04/02/2021 Nasal congestion 04/02/2021 PND (post-nasal drip) 04/02/2021 Hypertension 02/09/2021 Systolic murmur 11/16/2020 Chronic kidney disease, stage 2 (mild) Acute kidney failure, unspecified 07/11/2020 Anemia 07/11/2020 Benign prostatic hyperplasia with urinary obstru ction 07/11/2020 Calculus of kidney and ureter 07/11/2020 Peripheral nerve disease 07/11/2020 Sleep apnea 07/11/2020 Overview (07/31/2024): Oct 06, 2023 Entered By: JANICE BREAUX Comment: does not use CPAP Vitamin D deficiency 07/11/2020 Hypocupremia 05/04/2020 Metatarsalgia 05/11/2018 Abnormal blood level of copper 03/14/2018 Crohn's disease of ileum 03/21/2017 Small bowel obstruction 03/10/2017 Allergic rhinitis due to pollen 07/13/2016 History of renal calculi 04/12/2016 Spondylitis 10/23/2015 Pain in limb 08/19/2013 Allergic rhinitis 04/26/2013 Benign paroxysmal positional vertigo 04/26/2013 Carpal tunnel syndrome 04/26/2013 Deviated nasal septum 04/26/2013 Hyperlipidemia 04/26/2013 Idiopathic peripheral neuropathy 04/26/2013 Insomnia 04/26/2013 Migraine 04/26/2013 Non-toxic uninodular goiter 04/26/2013 Obstructive sleep apnea syndrome 04/26/2013 Overweight 04/26/2013 Encounter for general adult medical examination without abnormal findings 04/16/2013 Overview (07/31/2024): RECORDED 04/16/2013 8:19AM BY SHUKRI CORTES MA, ANNOTATION/ADDENDUM Medial epicondylitis 04/12/2013 Overview (07/31/2024): RECORDED 04/12/2013 2:01PM BY GIN VIVAR, ANNOTATION/ADDENDUM Headache 04/05/2013 Overview (07/31/2024): IMPRESSION: DECLINES REFERRAL BACK TO NEURO. NO IMPROVEMENT WITH TRIPTAN.; RECORDED 04/05/2013 9:14AM BY SHUKRI CORTES MA, ANNOTATION/ADDENDUM Malaise and fatigue 11/08/2012 Overview (07/31/2024): RECORDED 11/08/2012 9:31AM BY SHUKRI CORTES MA, ANNOTATION/ADDENDUM Dizziness and giddiness 11/08/2012 Overview (07/31/2024): RECORDED 11/08/2012 9:31AM BY SHUKRI CORTES MA, ANNOTATION/ADDENDUM Chronic sinusitis 04/04/2012 Overview (07/31/2024): Chronic rhinosinusitis Vertigo 03/29/2012 Overview (07/31/2024): Vertigo Influenza vaccine needed 01/17/2012 Overview (07/31/2024): RECORDED 01/17/2012 9:56AM BY GIN VIVAR, NURSE VISIT Contusion of finger 12/16/2011 Overview (07/31/2024): RECORDED 12/16/2011 8:31AM BY ADDY QUINTANA MA, ANNOTATION/ADDENDUM Psoriasis 12/16/2011 Overview (07/31/2024): RECORDED 12/16/2011 8:31AM BY ADDY QUINTANA MA, ANNOTATION/ADDENDUM Viral disease 12/16/2011 Overview (07/31/2024): RECORDED 12/16/2011 8:31AM BY ADDY QUINTANA MA, ANNOTATION/ADDENDUM Crohn's disease 07/15/2011 Overview (07/31/2024): RECORDED 07/15/2011 8:39AM BY SHUKRI CORTES MA, ANNOTATION/ADDENDUM Kidney stone 03/29/2011 Overview (07/31/2024): RECORDED 03/29/2011 9:12AM BY DEAN LYNN MD, ANNOTATION/ADDENDUM Resolved Problems Problem Noted Date Diagnosed Date Resolved Date Ileitis 03/10/2017 09/02/2024 Encounters Date Type Department Care Team Description 11/22/[address] [phone] ProviderJohn MD 11/06/2024 9:40 AM EDT Ancillary [place] [address] Matt Srinivasan MD 11/06/2024 9:15 AM EDT [place] [address] Matt Srinivasan MD Pain in both hands (Primary Dx); CMC arthritis; Ganglion cyst of finger; Primary osteoarthritis of both hands 10/02/2024 10:00 AM EDT Clinical Support [place] [address] Evon Theodore PA CMC arthritis (Primary Dx) 09/25/2024 2:15 PM EDT [place] [address] Matt Srinivasan MD Ganglion cyst of finger (Primary Dx) from Last 3 Months Immunizations Immunization Administration Dates Next Due Influenza (AFLURIA/FLUZONE) Inactivated/Split Quadrivalent with Preservative IM 12/20/2019,12/07/2019,01/28/2016 Influenza High-Dose Quadrivalent,(FLUZONE HIGH-DOSE), Perservative Free IM 0.7 mL 65 years and older 12/25/2022,01/10/2022,01/02/2021,12/06,01/27/2019,01/11/2018,12/20/2016 ,02/23/2016 Influenza High-Dose Trivalen t,(FLUZONE HIGH-DOSE), Perservative Free IM 0.5 mL 65 years and older 01/12/2024,01/27/2019,01/11/2018,12/20,02/23/2016 Influenza Inactivated/Split Preservative Free IM 02/03/2014,01/22/2010,01/22/2009,03/06 Influenza Split Preservative Free ID 01/17/2012 Influenza Virus Trivalent Sp lit Vaccine (MDV) IM 03/14/2007 Influenza, Quadrivalent (FLU AD) Adjuvanted Preservative Free IM 65 years and older 12/25/2022 Influenza, Trivalent (FLUAD) Adjuvanted Preservative Free IM 65 years and older 02/03/2014,01/22/2010,01/22/2009,03/06,03/14/2007 Influenza, Trivalent (FLUARI X, AFLURIA, FLULAVAL, FLUZONE) Preservative Free IM 01/23/2015 Influenza, Unspecified 01/02/2021,2018,01/11/2018,12/20,02/23/2016 Pneumococcal Conjugate 13-Valent 08/04/2017 Pneumococcal Conjugate 20-Valent 12/22/2021 Pneumococcal Polysaccharide 23-Valent 04/08/2014 RSV, Recombinant, Protein Hughes bunit RSV Prefusion F (AREXVY), Adjuvant Recon 0.5 mL PF 12/16/2022 RSV, Unspecified 12/16/2022 Td 03/02/2018 Tdap 03/27/2008 Zoster Vaccine Recombinant (Shingrix) 10/20/2020 ,05/03/2020 Social History Tobacco Use Types Packs/Day Years Used Date Smoking Tobacco: Never Passive Smoke Exposure: Never Smokeless Tobacco: Never Tobacco Cessation:Counseling Given: Not Answered Sex and Gender Information Value Date Recorded Sex Assigned at Male 06/09/2024 1:58 PM EST Legal Sex Male 11:40 AM EST Gender Identity Male 07/03/2024 1:56 PM EDT Sexual Orientation Heterosexual (straight) 06/09 1:58 PM EST Last Filed Vital Signs Vital Sign Reading Time Taken Comments Blood Pressure 121/66 09/02/2024 1:13 PM EDT Pulse 54 09/02/2024 1:13 PM EDT Temperature - - Respiratory Rate - - Oxygen Saturation 94% 09/02/2024 1:13 PM EDT Inhaled Oxygen Concentration - - Weight 83.5 kg (184 lb) 09/02/2024 1:13 PM EDT Height 177.8 cm (5' 10 ) 09/02/2024 1:13 PM EDT Body Mass Index 26.4 09/02/2024 1:13 PM EDT Plan of Treatment Upcoming Encounters Date Type Department Care Team (Late st Contact Info) Description 01/14/2025 10:00 AM EDT Office Visit [facility] [address] Agapito Gallego MD [address] [place] [address] 03/05/2025 11:30 AM EST Office Visit [facility] [address] [phone] Joe Harman MD [address] [place] [address] 03/10/2025 10:50 AM EST Office Visit [facility] Rhe[facility] [place] 31 [facility] [address] [place] [address] Neal Qiu MD [address] [place] [address] Health Maintenance Due Date Last Done Comments Advance Care Planning 1945 Hepatitis C Virus Screening 1945 COVID-19 Vaccine ( season) 2024 01/09/2024, 01/07/2023, 01/08/2022, Additional history exists Influenza Vaccine 11/22/2024 01/12/2024, , 12/25/2022, Additional history exists DTaP/Tdap/Td Vaccines (3 - Td or Tdap) 03/02/2028 03/02/2018, 03/27/2008 Zoster (Shingles) Vaccine Completed 10/20/2020, 01/2021 Pneumococcal Vaccines 50+ Completed 2021, 08/04/2017, 04/08/2014 RSV Vaccine 60 years and older and Patients Completed 12/16/2022, 12/16/2022 Hepatitis B Vaccines Aged Out No long er eligible based on patient's age to complete this topic Goals Goal Patient Goal Type Associated Problems Recent Progress Patient-Stated? Author PT goals Physical Therapy On track( 024 5:16 PM EDT) No Mathew Carr, PT Note: STG 1) Patient to have [...] reciprocal pattern without pain in 4 weeks. Procedures Procedure Name Priority Date/Time Associated Diagnosis Comments XR HAND 3+ VIEWS-BILATERAL Routine 11/06/2024 9:47 AM EDT Pain in both hands from Last 3 Months Results * XR Hand 3+ views-Bilateral (11/06/2024 9:47 AM EDT) Narrative [facility] - 11/06/2024 9:47 AM EDT This exam was performed in office at [facility] and images reviewed by orthopedic provider. Any findings are documented within ambulatory encounter note on date of service. Matt Srinivasan MD IMG DIAGNOSTIC IMAGING OR DERABLES Final Result [facility] from Last [address] [place] [address] [place] [id number] MEDICARE PART A & B [facility] SUPPLEMENT ONLY YUAN PATEL [id number] [facility] [place] [phone] MEDICARE PART A & B [facility] SUPPLEMENT [place] [place] [id number] MEDICARE PART A & B [facility] SUPPLEMENT ONLY Care Teams Paramedic Rn Relationship Specialty Start Date End Date Bj White MD [address] [address] PCP - General Family Medicine 10/26/22
--- OUTSIDE RECORDS SUMMARY | 2024-12-24 14:24 | XMS_ITS | Encounter Summary ---
Author Organization [facility] Address [address] [place] [address] Care Team Providers Care Manager Enterprise Content Management Name Role Phone Bj White MD Primary Care Provider [phone] Encounter Details Date Type Department Care Team (Late st Contact Info) Description 06/21/2024 Scanned Document [facility] Urologic Surgery [address] [place] [address] Sharan Joseph MD [address] [place] [address] [address] [place] [address] Social History Tobacco Use Types Packs/Day Years [...] AM EDT [facility] [address] [place] [address] Agapito Gallego MD [address] [place] [address] 03/05/2025 11:30 AM EST Office Visit [facility]rology [place] [address] [place] [address] Joe Harman MD 80 [place] [address] 03/10/2025 10:50 AM EST Office Visit [facility] Rheumatology [place] 31 [facility] 206 [place] [address] Neal Qiu MD [address] [address] documented as of this encounter Goals Goal [...] on filedocumented in this encounter Care Teams Manager Enterprise Content Management Relationship Specialty Start Date End Date Bj White MD 3640 [facility] [address] [place] [address] PCP - General Family Medicine 10/26/22 documented as of this encounter
--- OUTSIDE RECORDS SUMMARY | 2024-12-24 14:24 | XMS_ITS | Encounter Summary ---
Author Organization [facility] Address [address] [place] [address] Care Team Providers Care Recovery Room Nurse Name Role Phone Bj White MD Primary Care Provider [phone] Encounter Details Date Type Department Care Team (Late st Contact Info) Description 11/11/2021 Erroneous Encounter [facility] CONVERSION DEPT [address] [place] [phone] ProviderYoana MD Social History Tobacco Use Types [...] AM EDT Office [place] [facility] [address] Agapito Gallego MD [address] [place] [address] 03/05/2025 11:30 AM EST Office Visit [facility] Urology [place] [phone] Joe Harman MD [address] [place] [address] 03/10/2025 10:50 AM EST Office Visit [facility] Rheumatology [place] 31 [facility] [address] [place] [address] Neal Qiu MD [address] [address] documented as of this encounter Visit Diagnoses Not on filedocumented in this encounter Care Teams Recovery Room Nurse Relationship Specialty Start Date End Date Bj White MD [address] [facility] [address] [place] [address] PCP - General Family Medicine 10/26/22 documented as of this encounter
--- OUTSIDE RECORDS SUMMARY | 2024-12-24 14:24 | XMS_ITS | Clinical Summary ---
Author Organization [facility] Address [address] [place] [address] Care Team Providers Care Lunchroom Supervisor Name Role Phone Jarek Tate Unavailable Bj White Primary Care Provider [phone] Allergies Active Allergy Reactions Criticality Noted Date Comments Cefuroxime Hives 10/14/2010 Cephalexin Other (see comments) 07/11/2020 Medications tamsulosin (FLOMAX) capsule 0.4 mg. TAKE 1 CAPSULE BY MOUTH EVERY DAY IN THE EVENING 12/28/19 21 Active tadalafiL (CIALIS) 10 mg tablet Take 1 tablet by mouth once as needed. 02/03/20 21 Active potassium citrate 15 mEq tablet extended release Take 2 tablets by mouth daily. 12/13/19 21 Active ipratropium (ATROVENT) 0.03 % nasal spray Administer 1 spray into each nostril daily as needed. 01/30/20 21 Active finasteride (PROSCAR) 5 mg tablet Take 5 mg by mouth daily. 11/18/19 21 Active eszopiclone (LUNESTA) tablet Take 3 mg by mouth nightly. 11/18/19 21 Active acetaminophen-code ine (TYLENOL #3) 300-30 mg per tablet Take 0.5 tablets by mouth nightly as needed. 11/17/19 21 Active Humira,CF, Pen 40 mg/0.4 mL pen injector kit Inject 40 mg under the skin once a week. 02/02/20 21 Active cholestyramine-asp artame (cholestyramine light) 4 gram powder in packet Take 4 g by mouth in the morning. Active bran/gum/fib/aimee/p tim/kelp/pec (FIBER 6 ORAL) Take 1 tablet by mouth 2 (two) times a day. Active cyanocobalamin, vitamin B-12, 1,000 mcg/mL kit Inject 1,000 mg as directed every 30 (thirty) days. Active cholecalciferol, vitamin D3, 50 mcg (2,000 unit) tablet Take 2,000 Units by mouth daily. Active diclofenac sodium (VOLTAREN) 1 % gel Apply 4 g topically 2 (two) times a day. Active alpha lipoic acid 300 mg capsule Take 300 mg by mouth daily. Active omeprazole (PriLOSEC) 20 mg capsule Take 20 mg by mouth daily. 09/03/19 22 Active cholestyramine (QUESTRAN) 4 gram packet TAKE 1 PACKET DISSOLVED IN WATER ONCE A DAY 08/07/19 22 Active pramipexole (MIRAPEX) 0.125 mg tablet pramipexole 0.125 mg tablet TAKE 1 TABLET BY MOUTH EVERY NIGHT ONE HOUR BEFORE BED FOR 30 DAYS Active amitriptyline (ELAVIL) 25 mg tablet TAKE 1 TABLET BY MOUTH EVERY DAY AT NIGHT 90 tablet 3 12/26/19 22 Active carvediloL (COREG) 3.125 mg tablet TAKE 1 TABLET BY MOUTH IN THE MORNING AND 1 TABLET IN THE EVENING. *TAKE WITH MEALS 12/29/19 22 Active lidocaine (XYLOCAINE) 5 % ointmentIndication s:Peripheral polyneuropathy APPLY TOPICALLY TO AFFECTED AREA NEEDED FOR PAIN 50 g 3 01/11/20 23 Active Active Problems Problem Noted Date Diagnosed Date Pain in both feet 09/30/2021 Idiopathic peripheral neuropathy 09/30/2021 Hypertension 02/09/2021 Chronic kidney disease, stage 2 (mild) Benign prostatic hyperplasia with urinary obstru ction 07/11/2020 Sleep apnea 07/11/2020 Calculus of kidney and ureter 07/11/2020 Crohn's disease 04/04/2012 Overview (02/09/2021): Crohn's disease Crohn's disease Immunizations Immunization Administration Dates Next Due COVID-19 MRNA (MODERNA) 06/03/2021,12/06,06/23/2020,2020 Influenza (IM) Preservative Free 01/23/2015 Influenza Split Preservative Free ID 01/17/2012 Influenza TIV (IM) 02/03/2014, 0,01/22/2009,2007,03/14/2007 Influenza Vaccine 65y and older 01/03/20 21,01/27/2019,01/11/2018,2016,02/23/2016 Influenza, Quadrivalent 12/20/2019,12/07/2019, Pneumococcal Conjugate PCV-13 08/04/2017 Pneumococcal Polysaccharide PCV-23 04/08/2014 Shingrix (Zoster Recombinant) 10/20/2020, 021 Td 03/02/2018 Tdap 03/27/2008 Family History Medical History Relation Comments Hypertension Father Stroke Father Cancer Mother Malignant append iceal neoplasm Dementia Mother Relation Status Comments Father Mother Social History Tobacco Use Types Packs/Day Years Used Date Smoking Tobacco: Never Smokeless Tobacco: Never Alcohol Use Standard Drinks/Week Comments Not Currently 0 (1 standard drink = 0.6 oz pur e alcohol) Sex and Gender Information Value Date Recorded Sex Assigned at Not on file Legal Sex Male 2:44 PM EDT Gender Identity Not on file Sexual Orientation Not on file Last Filed Vital Signs Vital Sign Reading Time Taken Comments Blood Pressure 135/88 03/29/2022 11:06 AM EST Pulse 83 03/29/2022 11:06 AM EST Temperature - - Respiratory Rate - - Oxygen Saturation - - Inhaled Oxygen Concentration - - Weight 83.5 kg (184 lb) 03/29/2022 11:06 AM EST Height 177.8 cm (5' 10 ) 03/29/2022 11:06 AM EST Body Mass Index 26.4 03/29/2022 11:06 AM EST Plan of Treatment Health Maintenance Due Date Last Done Comments HIV Screening 1945 Medicare Annual Wellness (AWV) 1945 Meningococcal Vaccine (1 - Risk 2-dose series) 1947 Hepatitis C Screening 1963 COVID-19 Vaccine ( season) 2024 01/07/2023, 01/07/2023, 01/08/2022, Additional history exists Influenza Vaccine (#1) 2024 , 01/10/2022, 01/02/2021, Additional history exists DTaP,Tdap,and Td Vaccines (3 - Td or Tdap) 03/02/2028 03/02/2018, 03/27/2008 Colonoscopy Discontinued 06/26/2020 Colorectal Cancer Screening Discontinued Zoster Vaccines Completed 10/20/2020, 05/03/2020 Pneumococcal Vaccine, 50+ Years Completed 12/22/2021, 08/04/2017, 04/08/2014 CT Colonography Discontinued FIT-DNA (Cologuard) Discontinued FIT Discontinued FOBT Discontinued Flex Sigmoidoscopy - 5y Discontinued HPV Vaccines Aged Out No longer eligi ble based on patient's age to complete this topic Hepatitis A Vaccines Aged Out No long er eligible based on patient's age to complete this topic Insurance [facility] Address: [address] [place] [address] MEDICARE PART A & B Care Teams Lunchroom Supervisor Relationship Specialty Start Date End Date Bj White [address] [phone] PCP - General 02/02/21 Jarek Tate [phone] [id number] Referring Physician Internal Medicine 02/02/21
--- OUTSIDE RECORDS SUMMARY | 2024-12-24 14:24 | XMS_ITS | Encounter Summary ---
Author Organization [facility] Address [address] [place] [address] Phone Care Team Providers Care Property Accountant Name Role Phone Janice Mcgowan MD Unavailable [phone] Jeremie Dias MD Unavailable Neshaili Bj Martin MD Primary Care Provider [phone] Encounter Details Date Type Department Care Team (Late st Contact Info) Description 09/06/2024 Ophth Exam [facility] Emergency Department [address] [place] [address] Lucina Gould MBBS, MPH [address] [place] [address] [email or web address] Social History Tobacco Use Types Packs/Day Years [...] 12:32 PM EDT Shannon Bush RN * [place] Suicide Severity Rating Scale (Screener/Recent Self-Report) Question Answer Date of Assessment Author 1. Wish to be (Past 1 Month) No 09/06/2024 12:32 PM EDT Shannon Bush RN 2. Non-Specific Active Suicidal Thoughts (Past 1 Month) No 09/06/2024 12:32 PM EDT Shannon Bush RN 6. Suicidal Behavior (Lifetime) No 09/06/2024 12:32 PM EDT Shannon Bush RN documented as of this encounter Plan of Treatment Upcoming Encounters Date Type Department Care Team (Late st Contact Info) Description 01/29/2025 3:00 PM EDT Office Visit [facility] [address] [facility] [address]th [place] [address] Jay Zaidi MD [address] [facility]--[place] [address] [email or web address] documented as of this encounter Visit Diagnoses Not on filedocumented in this encounter Care Teams Property Accountant Relationship Specialty Start Date End Date Bj White MD [address] [phone] PCP - General Family Medicine 08/05/21 Janice Mcgowan MD [address] [address] Gastroenterology 04/09/20 Jeremie Dias MD [address] [place] [id number] [employer]/Air Officer Cardiology 03/29/21 documented as of this encounter Additional Source Comments The information contained in this document represents components of the legal health record. It is not the complete legal health record.[facility]
== END 2024-12-24 14:14 | disposition home or self-care (01) ==
LOC: HO.HPS 13:02
PROVIDERS: PCP Internal Medicine; Referring Provider Family Medicine; Visit Provider Hospitalist
DX: G47.33 Obstructive sleep apnea (adult) (pediatric) (principal); F51.01 Primary insomnia
CPT/HCPCS: 99204

== ENCOUNTER → 2024-12-24 13:01 | Outpatient (BNVA) | payer MEDICARE, OTHER, SELFPAY | PROVIDERS: PCP Internal Medicine; Referring Provider Family Medicine; Visit Provider Hospitalist | DX: G47.33 Obstructive sleep apnea (adult) (pediatric) (principal); F51.01 Primary insomnia | CPT/HCPCS: 99202 ==